=== PATIENT | male | born 1940 | race Caucasian/White ===

== ENCOUNTER → 2016-07-14 | Outpatient (CLI) | payer MEDICARE, OTHER ==
[~2016-07-14] MED LIST: /AMIO20TA; /AUGM25TA; AFRI0.65; AMIO400T; AMOX500C; ASPI1TAB PO; ASPI325T; ASTE0.15; COLA100C2; CORD200T; CYAN1000VL IM; FERR324T5; FERR325T; FURO20TA2; FURO80TA2; Ferrous Gluconate; LEVO112T2 PO; LIPI10TA; LIPI20TA; LISI-542 PO; LISI10TA4; LISI5TAB; LOPR50TA; METH2.5TA PO; OCEAN NASAL SPRAY; OMEP20TA7; PERC7.5T8; PRAV40TA2 PO; PRIL20CA; PRIN10TA; VITA500T3 PO; [UNRECOGNIZED DRUG - CODE]
[2016-07-14 11:46] LABS: ANION GAP 7 MEQ/L (8-16); BLOOD UREA NITROGEN 10 MG/DL (7-18); CARBON DIOXIDE LEVEL 32 MEQ/L (21-32); CHLORIDE LEVEL 105 MEQ/L (98-107); CREATININE FOR GFR 0.77 MG/DL (0.70-1.30); GLOMERULAR FILTRATION RATE > 60.0 (>42); GLUCOSE, FASTING 90 MG/DL (83-110); POTASSIUM SERUM 3.9 MEQ/L (3.5-5.1); SODIUM LEVEL 144 MEQ/L (136-145)
--- NOTE | 2016-07-14 13:26 | ECGEPIP ---
Stationary ECG Study [facility] Test Date: 2016-07-14 Pat Name: RAFIA MARIN Department: Room: - Gender: M Bus Girl: [facility] : 1940 Requested By: MARCIA Rodas Order Number: [id number] Reading MD: Zoey Bradley Measurements Intervals [place] Rate: 93 P: 37 LA: 148 QRS: 58 QRSD: 89 T: 64 QT: 358 QTc: 447 Interpretive Statements SINUS RHYTHM ANTEROSEPTAL MYOCARDIAL INFARCTION, OF INDETERMINATE AGE no prior borderline voltage Electronically Signed On 07-14-2016 13:26:12 EST by Zoey Bradley
== END ==
LOC: M LAB 10:32
PROVIDERS: ATTEND Ophthalmology
DX: Z01.818 Encounter for other preprocedural examination (principal)

== ENCOUNTER → 2016-07-21 | Day surgery (SDC) | payer MEDICARE, OTHER ==
--- NOTE | 2016-07-14 06:06 | CR ---
DATE OF CONSULTATION: 07/12/2016 CONSULTATION REPORT FOR: Dr. Govind Borjas, game operator. I was asked to see Wiley Ahmadi, a 76-year-old white male, in medical consultation for cataract surgery. He does have a history of coronary artery disease with remote myocardial infarction (VT). He underwent coronary artery bypass graft (CABG) in 2008. He has mild systolic dysfunction with an ejection fraction (EF) of about 45-50%. He has had no recent exacerbations of heart failure and has good exercise tolerance without chest pain or shortness of breath. He has been on aspirin for secondary prevention. Dr. Borjas has apparently already dealt with that, I would like him to resume it as soon as possible postoperatively when they feel it is safe. He had recent blood work as he does have frequent blood work as he is on methotrexate for rheumatoid arthritis (RA). Recent CBC, BMP, hepatic were all normal. He is on thyroid replacement. He had a recent TSH which was normal on his current dose. His last electrocardiogram was normal except for a slow R-wave progression. This probably is a result of his previous VT. MEDICATIONS: - B12 injections - Synthroid 112 mcg daily - lisinopril 5 mg a day - methotrexate 2.5 mg six tablets on Saturdays - pravastatin 40 mg a day - B12 PAST MEDICAL HISTORY: 1. Coronary artery disease/CABG as above. 2. Borderline systolic dysfunction as discussed secondary to coronary disease. 3. Hypothyroid. 4. Rheumatoid arthritis. 5. Elevated sugar. 6. Cholelithiasis. 7. Renal cyst. 8. Abnormal chest x-ray with calcification and noncalcified plaques. He has had fairly recent CT. There is no followup criteria. SOCIAL HISTORY: Stopped smoking in 1995. No alcohol. ALLERGIES: No allergies to medications. Cardiopulmonary review of systems is negative as discussed. His only complaint is that of some pain in the right wrist secondary to his RA and this has been a chronic complaint. Most of his other RA complaints abated following institution of methotrexate. PHYSICAL EXAMINATION: Blood pressure is 110/66. GENERAL APPEARANCE: He is slightly ashen in appearance. He had a complete blood count on 05/10/2016, which was normal. EYE EXAM: Per Dr. Borjas. NECK: No carotid bruits. No jugular venous distention (JVD). HEART: Was regular. CHEST: Clear. No rales or wheezes. ABDOMEN: He has got some central obesity. EXTREMITIES: No edema. On exam, I did not appreciate any significant synovitis but he is complaining of some discomfort at his right wrist and there might be some mild fullness in this area. IMPRESSION/PLAN: 1. Ischemic cardiomyopathy, compensated without evidence of heart failure. He does have mild systolic dysfunction. Continue his angiotensin-converting enzyme (BETH) inhibitor postoperatively. He is not on a beta-penelope. 2. Asymptomatic cholelithiasis. 3. History of abnormal chest x-ray as discussed. 4. Rheumatoid arthritis, on methotrexate. 5. Asymptomatic renal cyst. 6. Hypothyroid, on replacement dosage. Resume postoperatively. 7. Aspirin for secondary prevention. Resume postoperatively when stable from a surgical standpoint. The patient is medically optimized with recommendations as above.
[~2016-07-21] VITALS: Ht 177.8 cm; Wt 85.3 kg
[~2016-07-21] MED LIST changes: +ACETYLCHOLINE OPHTH SOLN 1% 2ML XX ONE; +BALANCED SALT IRRIGATION SOLUTION 500ML BAG (FOR OR EYE MACHINE) As Ordered ONE; +CEFUROXIME 1MG/0.1ML INTRACAMERAL INJ ICAM ONE; +D5W/0.2% SODIUM CHLORIDE 1,000 ML IV SCH; +HEALON DUET (HEALON 10MG/ML 0.55ML & HEALON ENDOCOAT 30MG/ML 0.85ML) As Ordered ONE; +HEALON DUET (HEALON 10MG/ML 0.55ML & HEALON ENDOCOAT 30MG/ML 0.85ML) XX ONE; +LIDOCAINE 0.75%/EPINEPHRINE 0.025% IN BSS 1ML SYR INTRACAMERAL (OR ONLY) ICAM ONE; +LIDOCAINE 4% INJ 5 ML AMP XX ONE; +MIDAZOLAM INJ 2 MG/2 ML VIAL (J2250) As Ordered ONE; +OFLOXACIN 0.3 % (OCUFLOX) OPTH SOL 5ML OS ONE; +PHENYLEPHRINE 2.5% OPHTH SOL 2ML OS ONE; +PROPARACAINE 0.5% OPHTH SOL 15ML OS ONE; +TOBRADEX OPHTH OINT 3.5 GM As Ordered ONE; +TOBRADEX OPHTH OINT 3.5 GM XX ONE; +TROPICAMIDE 1% OPHTH SOLN 2 ML OS ONE; +fentaNYL 100 MCG/2 ML INJECTION (J3010) As Ordered ONE
[2016-07-21] MEDS: D5W/0.2% SODIUM CHLORIDE 250 ML IV SCH ×2 (11:57→13:19)
[2016-07-21 14:05] VITALS: BP 131/76
--- NOTE | 2016-07-22 06:37 | RO ---
DATE OF PROCEDURE: 07/21/2016 PREOPERATIVE DIAGNOSIS: Visually significant nuclear sclerotic cataract left eye. POSTOPERATIVE DIAGNOSIS: Visually significant nuclear sclerotic cataract left eye. PROCEDURE: Cataract extraction with use of phacoemulsification and placement of intraocular lens ZCB00, 23 diopter, left eye. SURGEON: Govind Borjas DO CELLOPHANE BATH MIXER: ANESTHESIA: Local with monitored anesthesia care (MAC). COMPLICATIONS: None. POSTOPERATIVE CONDITION: Stable. INDICATION FOR SURGERY: Blurred vision left eye affecting patient's activities of daily living. DESCRIPTION OF PROCEDURE: The patient was seen in the preoperative area and properly identified. The correct operative eye was identified and marked. Attention was turned to that eye. The patient received topical antibiotics in the preoperative area. The patient then received topical dilating drops consisting of tropicamide and phenylephrine. The patient was then transferred to the operating room. The correct side was reidentified. The patient received topical anesthetics and antibiotics on the surface of the eye. The eye was prepped and draped in a sterile fashion. The upper and lower eyelids were isolated with Tegaderm tape, and the lids were held open with an adjustable speculum. Using a sideport blade, a paracentesis incision was made. Intraocular preservative-free lidocaine was then injected into the anterior chamber. Viscoelastic was then injected into the anterior chamber through the paracentesis. Using a 2.65 mm sharp-tipped keratome, the anterior chamber was entered via a temporal clear corneal incision. A continuous curvilinear capsulorrhexis was created with the aid of a 26-gauge cystotome and Utrata forceps. Hydrodissection was performed with balanced salt solution (BSS) on a blunt cannula until the nucleus was freely mobile. The crystalline lens was phacoemulsified and aspirated. Additional cohesive viscoelastic was placed into the capsular bag to deepen it. A ZCB00 lens was placed into the capsular bag and confirmed by visualizing the continuous curvilinear capsulorrhexis. Additional irrigation and aspiration was used to remove cortical material and remaining viscoelastic. The clear corneal incision was hydrated with BSS on a blunt cannula. The lens was well positioned. The incisions were then tested for leaks and found to be negative. The eye was then palpated for appropriate pressure and adjusted accordingly with BSS. Several drops of antibiotics and Iopidine were placed in the eye. The eyelid speculum was then carefully removed. Maxitrol ointment was placed in the eye. An eye patch and shield were then secured over the eye. The patient tolerated the procedure well and was discharged to the recovery unit in a stable condition. ERI
== END | disposition home or self-care (01) ==
LOC: M SDC 10:29
PROVIDERS: ATTEND Ophthalmology
DX: H25.12 Age-related nuclear cataract, left eye (principal); I10 Essential (primary) hypertension; E78.5 Hyperlipidemia, unspecified; E03.9 Hypothyroidism, unspecified; Z79.899 Other long term (current) drug therapy; Z79.82 Long term (current) use of aspirin
CPT/HCPCS: 66984; J2250; J3010; V2632

== ENCOUNTER → 2017-07-11 | Outpatient (CLI) | payer MEDICARE, OTHER | LOC: M RAD 09:48 | DX: Z01.811 Encounter for preprocedural respiratory examination (principal); M65.321 Trigger finger, right index finger | CPT/HCPCS: 71046 ==

== ENCOUNTER → 2019-04-23 | Outpatient (REF) | payer MEDICARE, OTHER ==
[~2019-04-23] MED LIST changes: -/AMIO20TA; -ACETYLCHOLINE OPHTH SOLN 1% 2ML XX ONE; +AMIO1TAB; -ASPI1TAB PO; +ASPI81TA26 PO; -BALANCED SALT IRRIGATION SOLUTION 500ML BAG (FOR OR EYE MACHINE) As Ordered ONE; -CEFUROXIME 1MG/0.1ML INTRACAMERAL INJ ICAM ONE; +CYAN500T8 PO; -D5W/0.2% SODIUM CHLORIDE 1,000 ML IV SCH; -HEALON DUET (HEALON 10MG/ML 0.55ML & HEALON ENDOCOAT 30MG/ML 0.85ML) As Ordered ONE; -HEALON DUET (HEALON 10MG/ML 0.55ML & HEALON ENDOCOAT 30MG/ML 0.85ML) XX ONE; -LIDOCAINE 0.75%/EPINEPHRINE 0.025% IN BSS 1ML SYR INTRACAMERAL (OR ONLY) ICAM ONE; -LIDOCAINE 4% INJ 5 ML AMP XX ONE; +METH2.5T48 PO; -METH2.5TA PO; -MIDAZOLAM INJ 2 MG/2 ML VIAL (J2250) As Ordered ONE; -OFLOXACIN 0.3 % (OCUFLOX) OPTH SOL 5ML OS ONE; -PHENYLEPHRINE 2.5% OPHTH SOL 2ML OS ONE; -PROPARACAINE 0.5% OPHTH SOL 15ML OS ONE; -TOBRADEX OPHTH OINT 3.5 GM As Ordered ONE; -TOBRADEX OPHTH OINT 3.5 GM XX ONE; -TROPICAMIDE 1% OPHTH SOLN 2 ML OS ONE; -VITA500T3 PO; -fentaNYL 100 MCG/2 ML INJECTION (J3010) As Ordered ONE
== END ==
LOC: M LAB REF 16:49
PROVIDERS: ATTEND Internal Medicine
DX: Z79.899 Other long term (current) drug therapy (principal); M06.9 Rheumatoid arthritis, unspecified

== ENCOUNTER → 2019-11-04 | Outpatient (CLI) | payer MEDICARE, OTHER ==
--- NOTE | 2019-11-04 12:35 | REP ---
REASON: Rheumatoid arthritis. PRIORS: None. Degenerative changes are seen throughout the wrist, particularly the 1st and 2nd carpometacarpal joints where there is asymmetric joint space narrowing and subchondral sclerosis seen along with osteophytosis. There is no evidence of acute fracture, dislocation or subluxation. IMPRESSION: Chronic changes as described above. Electronically Signed by Albert Parsons DO 11/04/2019 12:36 P
== END ==
LOC: M WUC 10:58
PROVIDERS: ATTEND Internal Medicine
DX: M06.9 Rheumatoid arthritis, unspecified (principal); M25.531 Pain in right wrist

== ENCOUNTER 2020-06-25 18:36 | Inpatient (IN) | payer MEDICARE, OTHER ==
[~2020-06-25] VITALS: Ht 180.3 cm; Wt 89.1 kg
[~2020-06-25 18:36] MED LIST changes: -ACET-897 PO; -ASPI-161 PO; -FOLI1TAB11 PO; -GNPLIQ18 PO; -SYNT100T PO
--- OUTSIDE RECORDS SUMMARY | 2020-06-25 18:40 | CCD | Continuity of Care Document ---
Author Author Wiley PACHECO PA Organization Unknown Address [phone] [address] Phone [phone] Care Team Providers Care Associate Automation Engineer Name Role Phone Charbel Austin MD AUTM [phone] Govind Borjas DO AUTM [phone] Kwadwo Garay JR, MD AUTM Unavailable Problems Active Problems Provider Date Pain in limb Lukasz Singh D.O. Onset: 2011 Coronary arteriosclerosis Lukasz Singh D.O. Onset: 06/24/2011 Hard prostate Lukasz Singh D.O. Onset: 2011 Anemia Lukasz Singh D.O. Onset: 2011 Essential hypertension Lukasz Singh D.O. Onset: Pure hypercholesterolemia Lukasz Singh D.O. Onset: 06/24/2011 Chronic systolic heart failure Lukasz Singh D.O. On set: 06/24/2011 Social History Type Date Description Comments Sex Unknown ETOH Use Occasionally consumes alcohol be er Tobacco Use Start: Unknown End: Unknown Patient is a former smoker smoked for 50yrs 1 pack a day Allergies, Adverse Reactions, Alerts Active Allergies Reaction Severity Comments Date No Known Drug Allergy 2010 Medications Active Medications SIG Qnty Indications Ordering Provide r Date Levothyroxine Sodium 100mcg Tablet s 1 by mouth every day 90tabs E03.9 Kwadwo Garay MD 11/04/2019 Folic Acid 1mg Tablets Take One Tablet By Mouth Every Day 30tabs Kwadwo Garay MD 04/24/2019 Multi Vitamin Tablets 1 by mouth every day 30tabs Farideh Carranza [facility] 04/03/[address] 1 by mouth every day 30tabs Nurse #2 11/10/2016 Vitamin B12 1000mcg Tablets ER 1 by mouth every day 90tabs Farideh Carranza [facility] 03/25/2016 Methotrexate 2.5mg Tablets take 7 tablets by mouth once a week 84tabs M05.40 Kwadwo Garay MD 12/30 Lisinopril 5mg Tablets Take One Tablet By Mouth Every Day 90tabs Abraham Isidro M.D. 03/31/2014 Pravastatin Sodium 40mg Tablets take one tablet by mouth every day 90tabs Kwadwo Garay MD 06/09/2010 Medications Administered in Office Medication SIG Qnty Indications Ordering Provider Date Immunization Adminstration,1 Vaccine/Tox oid Injection Kwadwo Garay MD 2019 Depo-Medrol Injection Injection Phyl Salazar, [facility] 02/09/2017 Depo-Medrol Injection Injection Phyl Salazar, [facility] 11/10/2016 Depo-Medrol Injection Injection Phyl Marie, [facility] 11/10/2016 B12 1000 mcg [address]-90 Injection Nurse Schedule 03/25/2016 Therapeutic Injection Injection Sage OsmanOTyler 03/25/2016 B12 1000 mcg [address]-45 Injection Nurse Schedule 02/24/2016 Therapeutic Injection Injection Sage OsmanOTyler 02/24/2016 B12 1000 mcg [address]-03 Injection Sage OsmanOTyler 02/05/2016 Therapeutic Injection Injection Sage OsmanOTyler 02/05/2016 B12 1000 mcg [address]-61 Injection Sage OsmanOTyler 12/31/2015 Therapeutic Injection Injection Sage OsmanOTyler 12/31/2015 B12 1000 mcg [address]-93 Injection Nurse Schedule 11/23/2015 Therapeutic Injection Injection Nurse Schedule 11/23/2015 B12 1000 mcg [address]-29 Injection Nurse Schedule 10/21/2015 Therapeutic Injection Injection Sage OsmanOTyler 10/21/2015 B12 1000 mcg [address]-51 Injection Nurse Schedule 10/14/2015 Therapeutic Injection Injection Lukasz Singh D.O. 10/14/2015 B12 1000 mcg [address]-16 Injection Nurse Schedule 10/07/2015 B12 1000 mcg [address]-33 Injection Lukasz Singh D.O. 10/07/2015 Therapeutic Injection Injection Lukasz Singh D.O. 10/07/2015 B12 1000 mcg [address]-40 Injection Nurse Schedule 09/30/2015 Therapeutic Injection Injection Lukasz Singh D.O. 09/30/2015 B12 1000 mcg [address]-84 Injection Nurse Schedule 09/23/2015 Therapeutic Injection Injection Nurse Schedule 09/23/2015 Administration Of Flu Vaccine Inj ection Lukasz Singh D.O. 03/31 Immunizations CPT Code Status Date Vaccine Lot # [id number] Given 11/04/2019 Adacel- Tetanus Diphtheria P ertussis (Age64 & Under) [id number] Given 03/31/2014 Fluvirin Virus Vaccine [id number] Refused 04/03/2018 Influenza Virus Vaccine, Quadrivalent (Cciiv4), Derived From Cell Vital Signs Date Vital Result Comment 05/15/2020 8:04am BP Systolic 120 mmHg BP Diastolic 70 mmHg Height 70 inches 5'10" Weight 206.00 lb BMI (Body Mass Index) 29.6 kg/m2 05/05/2020 9:47am BP Systolic 122 mmHg BP Diastolic 64 mmHg Heart Rate 88 /min Height 70 inches 5'10" Weight 205.00 lb BMI (Body Mass Index) 29.4 kg/m2 Results Test Acquired Date Facility Test Result H/L Range Note Laboratory test finding 05/15/2020 [facility] SEE COMMENTS 1 Enhanced PDF Report [id number] SEE IMAGE Complete Blood Count 05/04/2020 [facility] neeta teran Loan Processing Supervisor: [place] [address] [phone] WBC 4.0 x10*3/UL Low 4.1 - 10.9 RBC 3.88 x10*6/UL Low 4.20 - 6.30 Hemoglobin 12.8 g/dL 12.0 - 18.0 Hematocrit 36.6 % Low 37.0 - 51.0 MCV 94.3 fL 80.0 - 97.0 MCH 33.0 pg High 26.0 - 32.0 MCHC 35.0 g/dL 31.0 - 38.0 RDW 14.4 % High 11.6 - 13.7 PLT 167 x10*3/UL 140 - 440 MPV 8.5 FL 7.8 - 11.0 Lymph % 37.8 % 10.0 - 58.5 Mid % 8.2 % 1.7 - 9.3 Neut % 54.0 % 37.0 - 92.0 Lymph # 1.5 x10*3/UL 0.6 - 4.1 Mid # 0.4 x10*3/UL 0.1 - 0.6 Neut # 2.1 x10*3/UL 2.0 - 7.8 Comprehensive Chem Profile 05/04/2020 [facility], Loan Processing Supervisor: [place] [address] [phone] Glucose 118 mg/dL High 74 - 99 2 BUN 18 mg/dL 7 - 18 Creatinine 0.7 mg/dL 0.6 - 1.3 Sodium 145 mEq/L 136 - 145 Potassium 3.7 mEq/L 3.5 - 5.1 Chloride 106 mEq/L 98 - 107 Carbon Dioxide 32 mEq/L 21 - 32 Calcium 8.7 mg/dL 8.5 - 10.1 Alk. Phosphatase 92 mg/dL 46 - 116 Total Bilirubin 1.2 mg/dL High 0.2 - 1.0 Ast (Sgot) 37 U/L 15 - 37 Alt (SGPT) 42 U/L 12 - 78 Albumin 4.0 g/dL 3.4 - 5.0 Total Protein 6.6 g/dL 6.4 - 8.2 A/G Ratio 1.54 CALC 1.00 - 1.90 GFR >= 60 mL/min >60 GFR >= 60 mL/min >60 3 Lipid Profile 05/04/2020 [facility] , Loan Processing Supervisor: [place] [address] [phone] Cholesterol 157 mg/dL 131 - 200 Triglycerides 142 mg/dL 30 - 150 HDL Cholesterol 46 mg/dL 35 - 60 LDL (Calculated) 83 CALC 50 - 159 Laboratory test finding 05/04/2020 [facility] neeta barry Loan Processing Supervisor: [place] [address] [phone] Thyroid Stimulating Hormone 1.18 uIU/mL 0.3 6 - 3.74 Laboratory test finding 05/04/2020 [facility] neeta barry Loan Processing Supervisor: [place] [address] [phone] Thyroid Stimulating Hormone 1.24 uIU/mL 0.3 6 - 3.74 T4 Free 1.21 ng/dL 0.76 - 1.46 Laboratory test finding 12/16/2019 [facility] neeta barry Loan Processing Supervisor: Dr Kwadwo Garay [place], [place] [id number] [phone] Thyroid Stimulating Hormone 2.23 uIU/mL 0.3 6 - 3.74 1 RESULTS DIAGNOSIS DIAGNOSIS: RT MID BACK 1MM- SEBORRHEIC KERATOSIS, INFLAMED RESULTS SIGNATURE Kenneth Hutchison MD Electronic Signature: 26 MAY 2020 04:47 PM CLINICAL INFORMATION CLINICAL INFORMATION SHAILA KER SPECIMEN DATA GROSS DESCRIPTION Received in 10% buffered formalin is a shave biopsy of skin measuring [id number]. The specimen is cut into 5 pieces and entirely submitted in 2 cassettes. MICROSCOPIC DESCRIPTION There is basket-weave and laminated orthokeratosis, and parakeratosis, overlying an epidermis characterized by papillomatosis, acanthosis, basaloid cells and horn pseudocysts. There is a mononuclear cell infiltrate in the papillary dermis. CPT Codes 93288 The CPT codes provided are for information purposes only, and are based on AMA guidelines without regard to specific payor requirements. END OF REPORT FINAL REPORT-[facility] FINAL [facility],[address] [place] [address],[address],[place] [address]. [phone]. [phone]. Pharmacy Technician Instructor: Abraham Frazier MD [facility] [id number], [place] [id number], [place] [phone] 2 100-125 mg/dL PRE-DIABET ES/FASTING >126 mg/dL DIABETES/FASTING 3 CHRONIC KIDNEY DISEASE STAGI NG PER NKF STAGE I & II GFR >= 60 NORMAL TO MILDLY DECREASED STAGE III GFR 30-59 MODERATELY DECREASED STAGE IV GFR 15-29 SEVERELY DECREASED STAGE V GFR <15 VERY LITTLE GFR LEFT ESRD GFR <15 ON MANAGER COMPLIANCE Procedures Date Code Description Status 05/05/2020 91677 EKG/Interpretation & Report Comp leted Medical Devices Description No Information Available Encounters Type Date Location Provider Dx Diagnosis Office Visit 05/05/2020 10:00a [facility] Kwadwo Garay MD E03.9 Hypothyroidism, unspecified 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 I11.0 Hypertensive heart disease w ith heart failure 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 E78.00 Pure hypercholesterolemia, u nspecified M06.9 Rheumatoid arthritis, unspec ified R73.09 Other abnormal glucose K42.9 Umbilical hernia without obs truction or gangrene R91.8 Other nonspecific abnormal f inding of lung field E66.3 Overweight Z68.29 Body mass index [BMI] 29.0-2 9.9, adult Assessments Date Code Description Provider 05/15/2020 D48.5 Neoplasm of uncertain behavior o f skin ENEIDA Angel JR 05/05/2020 E03.9 Hypothyroidism, unspecified Shaan annia Garay MD 05/05/2020 I25.10 Atherosclerotic hear t disease of [place] coronary artery without angina pectoris Kwadwo Garay MD 05/05/2020 Z95.1 Presence of aortocoronary bypass graft Kwadwo Garay MD 05/05/2020 I11.0 Hypertensive heart disease with heart failure Kwadwo Garay MD 05/05/2020 I50.42 Chronic combined sys tolic (congestive) and diastolic (congestive) heart failure Kwadwo Garay MD 05/05/2020 E78.00 Pure hypercholesterolemia, unspe cified Kwadwo Garay MD 05/05/2020 M06.9 Rheumatoid arthritis, unspecifie d Kwadwo Garay MD 05/05/2020 R73.09 Other abnormal glucose Kwadwo Garay MD 05/05/2020 K42.9 Umbilical hernia without obstruc tion or gangrene Kwadwo Garay MD 05/05/2020 R91.8 Other nonspecific abnormal findi ng of lung field Kwadwo Garay MD 05/05/2020 E66.3 Overweight Kwadwo gutierrez MD 05/05/2020 Z68.29 Body mass index [BMI] 29.0-29.9, adult Kwadwo Garay MD 05/04/2020 E03.9 Hypothyroidism, unspecified Lab Schedule 05/04/2020 E78.00 Pure hypercholesterolemia, unspe cified Kwadwo Garay MD 05/04/2020 E03.9 Hypothyroidism, unspecified Shaan annia Garay MD 05/04/2020 I11.0 Hypertensive heart disease with heart failure Kwadwo Garay MD 05/04/2020 E78.00 Pure hypercholesterolemia, unspe cified Lab Schedule 05/04/2020 I50.42 Chronic combined sys tolic (congestive) and diastolic (congestive) heart failure Kwadwo Garay MD 05/04/2020 I11.0 Hypertensive heart disease with heart failure Lab Schedule 05/04/2020 I50.42 Chronic combined sys tolic (congestive) and diastolic (congestive) heart failure Lab Schedule 12/16/2019 E03.9 Hypothyroidism, unspecified Shaan annia Garay MD 12/16/2019 E03.9 Hypothyroidism, unspecified Lab Schedule Plan of Treatment Future Appointment(s):* 11/06/2020 7:40 am - Lab Schedule at [facility] * 11/09/2020 10:20 am - Kwadwo Garay MD at [facility] 05/05/2020 - Kwadwo Garay MD* E03.9 Hypothyroidism, unspecified * I25.10 Atherosclerotic heart disease of [place] coronary artery without angina pectoris * Z95.1 Presence of aortocoronary bypass graft * I11.0 Hypertensive heart disease with heart failure* Comments:* Compliance with meds and diet. * I50.42 Chronic combined systolic (congestive) and diastolic (congestive) heart failure * E78.00 Pure hypercholesterolemia, unspecified * M06.9 Rheumatoid arthritis, unspecified * R73.09 Other abnormal glucose * K42.9 Umbilical hernia without obstruction or gangrene * R91.8 Other nonspecific abnormal finding of lung field * E66.3 Overweight * Z68.29 Body mass index [BMI] 29.0-29.9, adult Functional Status Description No Information Available Mental Status Description No Information Available Referrals Description No Information Available
--- OUTSIDE RECORDS SUMMARY | 2020-06-25 18:40 | CCD | Continuity of Care Document ---
Author Author Wiley PACHECO PA Organization Unknown Address [address] [address] Phone [phone] Care Team Providers Care Dock Worker Name Role Phone Charbel Austin MD AUTM [phone] Govind Borjas DO AUTM [phone] Kwadwo Garay JR, MD AUTM Unavailable Problems [...] by mouth every day 30tabs Farideh Carranza [facility] 04/03/[address] 1 by mouth every day 30tabs Nurse #2 11/10/2016 Vitamin B12 1000mcg Tablets ER 1 by mouth every day 90tabs Farideh Carranza [facility] 03/25/2016 Methotrexate 2.5mg Tablets take 7 tablets [...] MD 2019 Depo-Medrol Injection Injection Phyl Salazar, [facility] 02/09/2017 Depo-Medrol Injection Injection Phyl Salazar, [facility] 11/10/2016 Depo-Medrol Injection Injection Phyl Marie, [facility] 11/10/2016 B12 1000 mcg [address]-63 Injection Nurse Schedule 03/25/2016 Therapeutic Injection Injection Sage OsmanOTyler 03/25/2016 B12 1000 mcg [address]-51 Injection Nurse Schedule 02/24/2016 Therapeutic Injection Injection Sage OsmanOTyler 02/24/2016 B12 1000 mcg [address]-39 Injection Sage OsmanOTyler 02/05/2016 Therapeutic Injection Injection Sage OsmanOTyler 02/05/2016 B12 1000 mcg [address]-06 Injection Sage OsmanOTyler 12/31/2015 Therapeutic Injection Injection Sage OsmanOTyler 12/31/2015 B12 1000 mcg [address]-50 Injection Nurse Schedule 11/23/2015 Therapeutic Injection Injection Nurse Schedule 11/23/2015 B12 1000 mcg [address]-70 Injection Nurse Schedule 10/21/2015 Therapeutic Injection Injection Sage OsmanOTyler 10/21/2015 B12 1000 mcg [address]-10 Injection Nurse Schedule 10/14/2015 Therapeutic Injection Injection Lukasz Singh D.O. 10/14/2015 B12 1000 mcg [address]-75 Injection Nurse Schedule 10/07/2015 B12 1000 mcg [address]-36 Injection Lukasz Singh D.O. 10/07/2015 Therapeutic Injection Injection Lukasz Singh D.O. 10/07/2015 B12 1000 mcg [address]-83 Injection Nurse Schedule 09/30/2015 Therapeutic Injection Injection Lukasz Singh D.O. 09/30/2015 B12 1000 mcg [address]-08 Injection Nurse Schedule 09/23/2015 Therapeutic Injection Injection Nurse Schedule 09/23/2015 Administration Of Flu Vaccine Inj ection Lukasz Singh D.O. 03/31 Immunizations CPT Code Status Date Vaccine Lot # [id number] Given 11/04/2019 Adacel- Tetanus Diphtheria P ertussis (Age64 & Under) [id number] Given 03/31/2014 Fluvirin Virus Vaccine [id number] Refused 04/03/2018 Influenza Virus Vaccine, Quadrivalent (Cciiv4), [...] Date Facility Test Result H/L Range Note Complete Blood Count 05/04/2020 [facility] Local Sales Associate: [place] [address] [phone] WBC 4.0 x10*3/UL Low 4.1 - 10.9 [...] 2.0 - 7.8 Comprehensive Chem Profile 05/04/2020 [facility] Local Sales Associate: [place] [address] [phone] Glucose 118 mg/dL High 74 - 99 1 BUN 18 mg/dL 7 - 18 Creatinine [...] mL/min >60 GFR >= 60 mL/min >60 2 Lipid Profile 05/04/2020 [facility] Local Sales Associate: [place] [address] [phone] Cholesterol 157 mg/dL 131 - 200 Triglycerides 142 mg/dL 30 - 150 HDL Cholesterol 46 mg/dL 35 - 60 LDL (Calculated) 83 CALC 50 - 159 Laboratory test finding 05/04/2020 [facility] Local Sales Associate: [place] [address] [phone] Thyroid Stimulating Hormone 1.18 uIU/mL 0.3 6 - 3.74 Laboratory test finding 05/04/2020 [facility], Local Sales Associate: [place] [address] [phone] Thyroid Stimulating Hormone 1.24 uIU/mL 0.3 6 - 3.74 T4 Free 1.21 ng/dL 0.76 - 1.46 Laboratory test finding 12/16/2019 [facility] Local Sales Associate: [place] [address] [phone] Thyroid Stimulating Hormone 2.23 uIU/mL 0.3 6 - 3.74 1 100-125 mg/dL PRE-DIABET ES/FASTING >126 mg/dL DIABETES/FASTING 2 CHRONIC KIDNEY DISEASE STAGI NG PER NKF STAGE I & II GFR >= 60 NORMAL TO MILDLY DECREASED STAGE III GFR 30-59 MODERATELY DECREASED STAGE IV GFR 15-29 SEVERELY DECREASED STAGE V GFR <15 VERY LITTLE GFR LEFT ESRD GFR <15 ON MORTGAGE LOAN COMPUTATION CLERK Procedures Date Code Description Status 05/05/2020 19237 EKG/Interpretation & Report Comp leted Medical Devices Description No Information Available Encounters Type Date Location Provider Dx Diagnosis Office Visit 05/05/2020 10:00a [facility] Kwadwo Garay MD E03.9 Hypothyroidism, [...] 9.9, adult Assessments Date Code Description Provider 05/05/2020 E03.9 Hypothyroidism, unspecified Shaan annia Garay MD 05/05/2020 I25.10 Atherosclerotic hear t disease of [place] coronary artery without angina pectoris Kwadwo Garay [...] 11/06/2020 7:40 am - Lab Schedule at [facility] * 11/09/2020 10:20 am - [facility] Functional Status Description No Information Available Mental Status Description No Information Available Referrals Description No Information Available
--- OUTSIDE RECORDS SUMMARY | 2020-06-25 18:40 | CCD | Continuity of Care Document ---
Author Author Wiley Garay MD Organization Unknown Address [address] [address] Phone [phone] Care Team Providers Care Can Cleaner Name Role Phone Charbel Austin MD AUTM [phone] Govind Borjas DO AUTM [phone] Kwadwo Garay JR, MD AUTM Unavailable Problems [...] HEART CENTER 11/10/2016 Depo-Medrol Injection Injection Phyl Salazar, [facility] 11/10/2016 B12 1000 mcg [address]-03 Injection Nurse Schedule 03/25/2016 Therapeutic Injection Injection Sage OsmanOTyler 03/25/2016 B12 1000 mcg [address]-95 Injection Nurse Schedule 02/24/2016 Therapeutic Injection Injection Sage OsmanOTyler 02/24/2016 B12 1000 mcg [address]-68 Injection Sage OsmanOTyler 02/05/2016 Therapeutic Injection Injection Sage OsmanOTyler 02/05/2016 B12 1000 mcg [address]-38 Injection Lukasz Singh D.O. 12/31/2015 Therapeutic Injection Injection Sage OsmanOTyler 12/31/2015 B12 1000 mcg [address]-13 Injection Nurse Schedule 11/23/2015 Therapeutic Injection Injection Nurse Schedule 11/23/2015 B12 1000 mcg [address]-07 Injection Nurse Schedule 10/21/2015 Therapeutic Injection Injection Lukasz Singh D.O. 10/21/2015 B12 1000 mcg [address]-60 Injection Nurse Schedule 10/14/2015 Therapeutic Injection Injection Lukasz Singh D.O. 10/14/2015 B12 1000 mcg [address]-41 Injection Nurse Schedule 10/07/2015 B12 1000 mcg [address]-85 Injection Lukasz Singh D.O. 10/07/2015 Therapeutic Injection Injection Lukasz Singh D.O. 10/07/2015 B12 1000 mcg [address]-69 Injection Nurse Schedule 09/30/2015 Therapeutic Injection Injection Lukasz Singh D.O. 09/30/2015 B12 1000 mcg [address]-87 Injection Nurse Schedule 09/23/2015 Therapeutic Injection Injection Nurse Schedule 09/23/2015 Administration Of Flu Vaccine Inj ection Lukasz Singh D.O. 03/31 Immunizations CPT Code Status Date Vaccine Lot # [id number] Given 11/04/2019 Adacel- Tetanus Diphtheria P ertussis (Age64 & Under) [id number] Given 03/31/2014 Fluvirin Virus Vaccine [id number] Refused 04/03/2018 Influenza Virus Vaccine, Quadrivalent (Cciiv4), Derived From Cell Vital Signs Date Vital Result Comment 05/05/2020 9:47am BP Systolic 122 mmHg BP Diastolic 64 mmHg Heart Rate 88 /min Height 70 inches 5'10" Weight 205.00 lb BMI (Body Mass Index) 29.4 kg/m2 11/04/2019 9:53am BP Systolic 120 mmHg BP Diastolic 60 mmHg Height 70 inches 5'10" Weight 206.25 lb BMI (Body Mass Index) 29.6 kg/m2 Results Test Acquired Date Facility Test Result H/L Range Note Complete Blood Count 05/04/2020 [facility] Senior Database Administrator: [place] [address] [phone] WBC 4.0 x10*3/UL Low 4.1 - 10.9 [...] 2.0 - 7.8 Comprehensive Chem Profile 05/04/2020 [facility] Senior Database Administrator: [place] [address] [phone] Glucose 118 mg/dL High 74 - 99 [...] 60 mL/min >60 2 Lipid Profile 05/04/2020 [facility] Senior Database Administrator: [place] [address] [phone] Cholesterol 157 mg/dL 131 - 200 Triglycerides 142 mg/dL 30 - 150 HDL Cholesterol 46 mg/dL 35 - 60 LDL (Calculated) 83 CALC 50 - 159 Laboratory test finding 05/04/2020 [facility] Senior Database Administrator: [place] [address] [phone] Thyroid Stimulating Hormone 1.18 uIU/mL 0.3 6 - 3.74 Laboratory test finding 05/04/[address] [facility] Senior Database Administrator: [place] [address] [phone] Thyroid Stimulating Hormone 1.24 uIU/mL 0.3 6 - 3.74 T4 Free 1.21 ng/dL 0.76 - 1.46 Laboratory test finding 12/16/[address] [facility] Senior Database Administrator: [place] [address] [phone] Thyroid Stimulating Hormone 2.23 uIU/mL 0.3 6 - 3.74 1 100-125 mg/dL PRE-DIABET ES/FASTING >126 mg/dL DIABETES/FASTING 2 CHRONIC KIDNEY DISEASE STAGI NG PER NKF STAGE I & II GFR >= 60 NORMAL TO MILDLY DECREASED STAGE III GFR 30-59 MODERATELY DECREASED STAGE IV GFR 15-29 SEVERELY DECREASED STAGE V GFR <15 VERY LITTLE GFR LEFT ESRD GFR <15 ON REMOTE SENSING TECHNOLOGIST Procedures Date Code Description Status 05/05/2020 60544 EKG/Interpretation & Report Comp leted Medical Devices Description No Information Available Encounters Type Date Location Provider Dx Diagnosis Office Visit 05/05/2020 10:00a [facility] Kwadwo Garya MD E03.9 Hypothyroidism, unspecified I25.10 Athscl heart [...] 05/05/2020 I25.10 Atherosclerotic hear t disease of [place] coronary artery without angina pectoris Kwadwo Garay [...] Lab Schedule Plan of Treatment Future Appointment(s):* 05/15/2020 8:00 am - ENEIDA Angel JR at [facility] * 11/06/2020 7:40 am - Lab Schedule at [facility] * 11/09/2020 10:20 am - Kwadwo Garay MD at [facility] 05/05/2020 - Kwadwo Garay MD* E03.9 Hypothyroidism, unspecified * I25.10 Atherosclerotic heart disease of [place] coronary artery without angina pectoris * Z95.1 [...]
--- OUTSIDE RECORDS SUMMARY | 2020-06-25 18:41 | CCD ---
Author Author [facility] Organization [facility] Address Unknown Phone Unavailable Care Team Providers Care Roller Staker Name Role Phone Alexis Garay MD Unavailable Unavailable Alexis Garay MD Unavailable Unavailable Alexis Garay MD Unavailable Unavailable Alexis Garay MD Unavailable Unavailable Alexis Garay MD Unavailable Unavailable Alexis Garay MD Unavailable Unavailable Alexis Garay MD Unavailable Unavailable Alexis Garay MD Unavailable Unavailable Alexis Garay MD Unavailable Unavailable Alexis Garay MD Unavailable Unavailable Alexis Garay MD Unavailable Unavailable Alexis Garay MD Unavailable Unavailable Alexis Garay MD Unavailable Unavailable Alexis Garay MD Unavailable Unavailable Alexis Garay MD Unavailable Unavailable Alexis Garay MD Unavailable Unavailable Alexis Garay MD Unavailable Unavailable Alexis Garay MD Unavailable Unavailable Alexis Garay MD Unavailable Unavailable Alexis Garay MD Unavailable Unavailable Alexis Garay MD Unavailable Unavailable Alexis Garay MD Unavailable Unavailable Alexis Garay MD Unavailable Unavailable Alexis Garay MD Unavailable Unavailable Alexis Garay MD Unavailable Unavailable Alexis Garay MD Unavailable Unavailable Alexis Garay MD Unavailable Unavailable Alexis Garay MD Unavailable Unavailable Alexis Garay MD Unavailable Unavailable Alexis Garay MD Unavailable Unavailable Alexis Garay MD Unavailable Unavailable Alexis Garay MD Unavailable Unavailable Alexis Garay MD Unavailable Unavailable Alexis Garay MD Unavailable Unavailable Alexis Garay MD Unavailable Unavailable Alexis Garay MD Unavailable Unavailable Alexis Garay MD Unavailable Unavailable Alexis Garay MD Unavailable Unavailable Alexis Garay MD Unavailable Unavailable Alexis Garay MD Unavailable Unavailable Tanisha, Alexis Burkett MD Unavailable Unavailable [place], Alexis Burkett MD Unavailable Unavailable [place], Alexis Burkett MD Unavailable Unavailable Tanisha, Alexis uBrkett MD Unavailable Unavailable Tanisha, Alexis Burkett MD Unavailable Unavailable Tanisha, Alexis Burkett MD Unavailable Unavailable TanishaAlexis MD Unavailable Unavailable [place] MD Unavailable Unavailable [place], Alexis Burkett MD Unavailable Unavailable Tanisha, Alexis Burkett MD Unavailable Unavailable Tanisha, Alexis Burkett MD Unavailable Unavailable Tanisha, Alexis Burkett MD Unavailable Unavailable [place], Alexis Burkett MD Unavailable Unavailable [place], Alexis Burkett MD Unavailable Unavailable [place], Alexis Burkett MD Unavailable Unavailable Tanisha, Alexis Burkett MD Unavailable Unavailable Tanisha, Alexis Burkett MD Unavailable Unavailable [place], Alexis Burkett MD Unavailable Unavailable Tanisha, Alexis Burkett MD Unavailable Unavailable [place], Alexis Burkett MD Unavailable Unavailable [place]is MD Unavailable Unavailable [place]Alexis MD Unavailable Unavailable Tanisha, Alexis Burkett MD Unavailable Unavailable [place] MD Unavailable Unavailable [place] MD Unavailable Unavailable [place]Alexis MD Unavailable Unavailable [place]Alexis MD Unavailable Unavailable [place]Alexis MD Unavailable Unavailable [place]Alexis MD Unavailable Unavailable [place], Alexis Burkett MD Unavailable Unavailable [place], Alexis Burkett MD Unavailable Unavailable [place], Alexis Burkett MD Unavailable Unavailable Tanisha, Alexis Burkett MD Unavailable Unavailable [place], Alexis Burkett MD Unavailable Unavailable [place], Alexis Burkett MD Unavailable Unavailable [place] MD Unavailable Unavailable Tanisha, Alexis Burkett MD Unavailable Unavailable TanishaAlexis MD Unavailable Unavailable TanishaAlexis MD Unavailable Unavailable TanishaAlexis MD Unavailable Unavailable TanishaAlexis MD Unavailable Unavailable [place] MD Unavailable Unavailable TanishaAlexis MD Unavailable Unavailable TanishaAlexis MD Unavailable Unavailable [place] MD Unavailable Unavailable [place] MD Unavailable Unavailable Re-disclosure Warning The records that you are about to access may contain information from federally-assisted alcohol or drug abuse programs. If such information is present, then the following federally mandated warning applies: This information has been disclosed to you from records protected by federal confidentiality rules (42 CFR part 2). The federal rules prohibit you from making any further disclosure of this information unless further disclosure is expressly permitted by the written consent of the person to whom it pertains or as otherwise permitted by 42 CFR part 2. A general authorization for the release of medical or other information is NOT sufficient for this purpose. The Federal rules restrict any use of the information to criminally investigate or prosecute any alcohol or drug abuse patient.The records that you are about to access may contain highly sensitive health information, the redisclosure of which is protected by Article 27-F of the [facility] Public Health law. If you continue you may have access to information: Regarding HIV / AIDS; Provided by facilities licensed or operated by the [facility] Office of Mental Health; or Provided by the [facility] Office for People With Developmental Disabilities. If such information is present, then the following [facility] mandated warning applies: This information has been disclosed to you from confidential records which are protected by state law. State law prohibits you from making any further disclosure of this information without the specific written consent of the person to whom it pertains, or as otherwise permitted by law. Any unauthorized further disclosure in violation of state law may result in a fine or senior care sentence or both. A general authorization for the release of medical or other information is NOT sufficient authorization for further disc losure. Family History Family Member Name Family Member Gender Family Member Status Date o f Status Description Data Source(s) Unknown Male Problem [facility] ([facility]) Encounters Encounter Providers Location Date Indications Data Source(s ) Outpatient Attender: Kwadwo Bradley 1 2019 09:00:00 AM EST [facility] ([facility] ) Outpatient Attender: Kwadwo Bradley 0 11/04/2019 10:20:00 AM EDT [facility] ([facility] ) Immunizations Vaccine Date Status Description Data Source(s) Tdap 11/04/2019 11:20:00 AM EDT completed M [facility] ([facility]) Medications Medication Brand Name Start Date Product Form Dose Route Admi nistrative Instructions Pharmacy Instructions Status Indications Reaction Description Data Source(s) 1 mg 04/22/2020 12:00:00 AM EST tablet 30 TAKE ONE TABLET BY MOUTH EVERY DAY TAKE ONE TABLET BY MOUTH EVERY DAY SOLD: 04/23/2020 [facility] 1 mg 04/22/2020 12:00:00 AM EST tablet 30 TAKE ONE TABLET BY MOUTH EVERY DAY TAKE ONE TABLET BY MOUTH EVERY DAY SOLD: 06/23/2020 [facility] 1 mg 04/22/2020 12:00:00 AM EST tablet 30 TAKE ONE TABLET BY MOUTH EVERY DAY TAKE ONE TABLET BY MOUTH EVERY DAY SOLD: 05/27/2020 [facility] 5 mg 03/19/2020 12:00:00 AM EDT tablet 90 TAKE ONE TABLET BY MOUTH EVERY DAY TAKE ONE TABLET BY MOUTH EVERY DAY SOLD: 06/23/2020 [facility] 5 mg 03/19/2020 12:00:00 AM EDT tablet 90 TAKE ONE TABLET BY MOUTH EVERY DAY TAKE ONE TABLET BY MOUTH EVERY DAY SOLD: 03/25/2020 [facility] 100 mcg 11/04/2019 12:00:00 AM EDT tablet 90 TAKE ONE TABLET BY MOUTH EVERY DAY TAKE ONE TABLET BY MOUTH EVERY DAY SOLD: 05/03/2020 [facility] 100 mcg 11/04/2019 12:00:00 AM EDT tablet 90 TAKE ONE TABLET BY MOUTH EVERY DAY TAKE ONE TABLET BY MOUTH EVERY DAY SOLD: 02/05/2020 [facility] 100 mcg 11/04/2019 12:00:00 AM EDT tablet 90 TAKE ONE TABLET BY MOUTH EVERY DAY TAKE ONE TABLET BY MOUTH EVERY DAY SOLD: 11/06/2019 [facility] Levothyroxine Sodium 0.1 MG Oral Tablet Levothyroxine Sodium 11/04/2019 12:00:00 AM EDT ORAL active [facility] ([facility]) Immunization Adminstration,1 Vaccine/Toxoid 11/04/2019 12:00 :00 AM EDT completed [facility] ([facility]) Medication administered onsite 2.5 mg 08/27/2019 12:00:00 AM EDT tablet 84 TAKE 7 TABLETS BY MOUTH ONCE A WEEK TAKE 7 TABLETS BY MOUTH ONCE A WEEK SOLD: 11/23/2019 [facility] 2.5 mg 08/27/2019 12:00:00 AM EDT tablet 84 TAKE 7 TABLETS BY MOUTH ONCE A WEEK TAKE 7 TABLETS BY MOUTH ONCE A WEEK SOLD: 08/29/2019 [facility] 2.5 mg 08/27/2019 12:00:00 AM EDT tablet 84 TAKE 7 TABLETS BY MOUTH ONCE A WEEK TAKE 7 TABLETS BY MOUTH ONCE A WEEK SOLD: 05/14/2020 [facility] 2.5 mg 08/27/2019 12:00:00 AM EDT tablet 84 TAKE 7 TABLETS BY MOUTH ONCE A WEEK TAKE 7 TABLETS BY MOUTH ONCE A WEEK SOLD: 02/17/2020 [facility] 40 mg 07/16/2019 12:00:00 AM EST tablet 90 TAKE ONE TABLET BY MOUTH EVERY DAY TAKE ONE TABLET BY MOUTH EVERY DAY SOLD: 01/18/2020 [facility] 40 mg 07/16/2019 12:00:00 AM EST tablet 90 TAKE ONE TABLET BY MOUTH EVERY DAY TAKE ONE TABLET BY MOUTH EVERY DAY SOLD: 04/23/2020 [facility] Pravastatin Sodium 40 MG Oral Tablet PRAVASTATIN SODIUM 04/2020 12:00:00 AM EST tablet 90 TAKE ONE TABLET BY MOUTH SWAPNA DAY TAKE ONE TABLET BY MOUTH EVERY DAY SOLD: 07/16/2019 [facility] 40 mg 07/16/2019 12:00:00 AM EST tablet 90 TAKE ONE TABLET BY MOUTH EVERY DAY TAKE ONE TABLET BY MOUTH EVERY DAY SOLD: 10/17/2019 [facility] 112 mcg 06/11/2019 12:00:00 AM EST tablet 90 TAKE ONE TABLET BY MOUTH EVERY DAY TAKE ONE TABLET BY MOUTH EVERY DAY SOLD: 09/16/2019 [facility] 112 mcg 06/11/2019 12:00:00 AM EST tablet 90 TAKE ONE TABLET BY MOUTH EVERY DAY TAKE ONE TABLET BY MOUTH EVERY DAY SOLD: 06/19/2019 [facility] 2.5 mg 06/07/2019 12:00:00 AM EST tablet 84 TAKE 7 TABLETS BY MOUTH ONCE A WEEK TAKE 7 TABLETS BY MOUTH ONCE A WEEK SOLD: 06/11/2019 [facility] 1 mg 04/24/2019 12:00:00 AM EST tablet 30 TAKE ONE TABLET BY MOUTH EVERY DAY TAKE ONE TABLET BY MOUTH EVERY DAY SOLD: 07/25/2019 [facility] 1 mg 04/24/2019 12:00:00 AM EST tablet 30 TAKE ONE TABLET BY MOUTH EVERY DAY TAKE ONE TABLET BY MOUTH EVERY DAY SOLD: 03/25/2020 [facility] 1 mg 04/24/2019 12:00:00 AM EST tablet 30 TAKE ONE TABLET BY MOUTH EVERY DAY TAKE ONE TABLET BY MOUTH EVERY DAY SOLD: 11/23/2019 [facility] 1 mg 04/24/2019 12:00:00 AM EST tablet 30 TAKE ONE TABLET BY MOUTH EVERY DAY TAKE ONE TABLET BY MOUTH EVERY DAY SOLD: 04/25/2019 [facility] 1 mg 04/24/2019 12:00:00 AM EST tablet 30 TAKE ONE TABLET BY MOUTH EVERY DAY TAKE ONE TABLET BY MOUTH EVERY DAY SOLD: 12/23/2019 [facility] 1 mg 04/24/2019 12:00:00 AM EST tablet 30 TAKE ONE TABLET BY MOUTH EVERY DAY TAKE ONE TABLET BY MOUTH EVERY DAY SOLD: 02/22/2020 [facility] 1 mg 04/24/2019 12:00:00 AM EST tablet 30 TAKE ONE TABLET BY MOUTH EVERY DAY TAKE ONE TABLET BY MOUTH EVERY DAY SOLD: 01/22/2020 [facility] 1 mg 04/24/2019 12:00:00 AM EST tablet 30 TAKE ONE TABLET BY MOUTH EVERY DAY TAKE ONE TABLET BY MOUTH EVERY DAY SOLD: 10/24/2019 [facility] 1 mg 04/24/2019 12:00:00 AM EST tablet 30 TAKE ONE TABLET BY MOUTH EVERY DAY TAKE ONE TABLET BY MOUTH EVERY DAY SOLD: 06/26/2019 [facility] 1 mg 04/24/2019 12:00:00 AM EST tablet 30 TAKE ONE TABLET BY MOUTH EVERY DAY TAKE ONE TABLET BY MOUTH EVERY DAY SOLD: 05/26/2019 [facility] 1 mg 04/24/2019 12:00:00 AM EST tablet 30 TAKE ONE TABLET BY MOUTH EVERY DAY TAKE ONE TABLET BY MOUTH EVERY DAY SOLD: 08/24/2019 [facility] 1 mg 04/24/2019 12:00:00 AM EST tablet 30 TAKE ONE TABLET BY MOUTH EVERY DAY TAKE ONE TABLET BY MOUTH EVERY DAY SOLD: 09/24/2019 [facility] 5 mg 03/27/2019 12:00:00 AM EDT tablet 90 TAKE ONE TABLET BY MOUTH EVERY DAY TAKE ONE TABLET BY MOUTH EVERY DAY SOLD: 12/23/2019 [facility] 5 mg 03/27/2019 12:00:00 AM EDT tablet 90 TAKE ONE TABLET BY MOUTH EVERY DAY TAKE ONE TABLET BY MOUTH EVERY DAY SOLD: 09/24/2019 [facility] 5 mg 03/27/2019 12:00:00 AM EDT tablet 90 TAKE ONE TABLET BY MOUTH EVERY DAY TAKE ONE TABLET BY MOUTH EVERY DAY SOLD: 06/29/2019 [facility] Insurance Providers Payer name Policy type / Coverage type Policy ID Covered green party ID Covered green party's relationship to fowler Policy [place] Plan Information [facility] [id number] SP [id number] MEDICARE [id number] SP [id number] SELF PAY ONLY [id number] SP [id number] [employer] Workers Compensation [id number] Self [id number] [place] (Old) Medigap Part B [id number] Self [id number] Medicare Natl Govt Serv Medicare Primary [id number] Self [id number] Umr (New [place]) Medigap Part B [id number] Self [id number] [employer] Workers Compensation [id number] Self [id number] [place] (Old) Medigap Part B [id number] Self [id number] Medicare Natl Govt Servic Medicare Primary [id number] Self [id number] [place] (pr) Medigap Part B [id number] Self [id number] Umr (pr) Medigap Part B [id number] Self [id number] Medicare [place] Primary [id number] Self [id number] [employer] Workers Compensation [id number] Self [id number] [place] (Old) Medigap Part B [id number] Self [id number] Medicare Natl Govt Servic Medicare Primary [id number] Self [id number] [employer] Workers Compensation [id number] Self [id number] [place] (Old) Medigap Part B [id number] Self [id number] Medicare Natl Govt Servic Medicare Primary [id number] Self [id number] UMR O [id number] S [id number] [place] PPO O [id number] S [id number] MEDICARE C [id number] S [id number] A [employer] Workers Compensation [id number] Self [id number] [place] (Old) Medigap Part B [id number] Self [id number] Medicare Natl Govt Servic Medicare Primary [id number] Self [id number] [employer] Workers Compensation [id number] Self [id number] Umr [place] Ppo Medigap Part B [id number] Self [id number] Medicare Natl Govt Servic Medicare Primary [id number] Self [id number] [employer] Workers Compensation [id number] Self [id number] Umr [place] Ppo Medigap Part B [id number] Self [id number] Medicare Natl Govt Servic Medicare Primary [id number] Self [id number] [place] (pr) Medigap Part B [id number] Self [id number] [place] Primary [id number] Self [id number] [place] (pr) Medigap Part B [id number] Self [id number] [place] Primary [id number] Self [id number] [place] [id number] SP [id number] MEDICARE [id number] SP [id number] A [employer] Workers Compensation [id number] Self [id number] Umr [place] Ppo Medigap Part B [id number] Self [id number] Medicare Natl Govt Servic Medicare Primary [id number] Self [id number] [employer] Workers Compensation [id number] Self [id number] Umr [place] Ppo Medigap Part B [id number] Self [id number] Medicare Natl Govt Servic Medicare Primary [id number] Self [id number] [place] (pr) Commercial [id number] Self [id number] [place] (pr) Commercial [id number] Self [id number] [place] (pr) Commercial [id number] Self [id number] [employer] Workers Compensation [id number] Self [id number] Umr [place] Ppo Medigap Part B [id number] Self [id number] Medicare Natl Govt Servic Medicare Primary [id number] Self [id number] [employer] Workers Compensation [id number] Self [id number] [place] Ppo Medigap Part B [id number] Self [id number] Medicare Natl Govt Servic Medicare Primary [id number] Self [id number] [employer] Workers Compensation [id number] Self [id number] [place] Ppo Medigap Part B [id number] Self [id number] Medicare Natl Govt Servic Medicare Primary [id number] Self [id number] [employer] Workers Compensation [id number] Self [id number] [place] Ppo Medigap Part B [id number] Self [id number] Medicare Natl Govt Servic Medicare Primary [id number] Self [id number] [employer] Workers Compensation Self [place] Ppo Medigap Part B [id number] Self [id number] Medicare Natl Govt Servic Medicare Primary Self [employer] PPO O [id number] S [id number] [employer] Workers Compensation Self [employer] Workers Compensation Self [place] [id number] SP [id number] [employer] Workers Compensation Self [employer] Workers Compensation Self [employer] Workers Compensation Self [employer] Workers Compensation Self [employer] Workers Compensation Self MEDICARE UNAVAILABLE SP UNAVAILA BLE [employer] Workers Compensation Self N[employer] [id number] SP [id number] [employer] Workers Compensation Self [employer] Workers Compensation Self [employer] Workers Compensation Self [employer] Workers Compensation Self [employer] Workers Compensation Self Surgeries/Procedures Procedure Description Date Indications Data Source(s) ECG ROUTINE ECG W/LEAST 12 LDS W/I&R 05/05/2020 12:00: 00 AM EST [facility] ([facility]) Results ID Date Data Source [id number] 05/15/2020 09:10:00 AM EST [facility] ([facility]) Name Value Range Interpretation Code Description Data Nehal rce(s) Supporting Document(s) [facility] Laboratory test result [facility] ([facility]) RESULTS DIAGNOSIS DIAGNOSIS: RT MID BACK 1MM- SEBORRHEIC KERATOSIS, INFLAMED RESULTS SIGNATURE Kenneth Hutchison MD Electronic Signature: 26 MAY 2020 04:47 PM CLINICAL INFORMATION CLINICAL INFORMATION SHAILA KER SPECIMEN DATA GROSS DESCRIPTION Received in 10% buffered formalin is a shave biopsy of skin measuring [id number]. The specimen is cut into 5 pieces and entirely submitted in 2 cassettes. MICROSCOPIC DESCRIPTION There is basket-weave and laminated orthokeratosis, and parakeratosis, overlying an epidermis characterized by papillomatosis, acanthosis, basaloid cells and horn pseudocysts. There is a mononuclear cell infiltrate in the papillary dermis. CPT Codes 12668 The CPT codes provided are for information purposes only, and are based on AMA guidelines without regard to specific payor requirements. END OF REPORT FINAL REPORT-[facility] FINAL eriPath [facility],[address] [place] [address],[address] [place] [address]. [phone]. [phone]. Workers Compensation Claims Adjuster: Abraham Frazier MD [facility] [id number], [place] [id number], [place] [id number] Laboratory test finding (navigational concept) Laboratory test result [facility] ([facility]) ID Date Data Source [id number] 05/04/2020 09:14:00 AM EST [facility] ([facility]) Name Value Range Interpretation Code Description Data Nehal rce(s) Supporting Document(s) Thyrotropin [Units/volume] in Serum or Plasma by Detec tion limit <= 0.05 mIU/L 1.24 uIU/mL 0.36-3.74 [facility] ([facility] ) Thyroxine (T4) free [Mass/volume] in Serum or Plasma 1.21 ng/dL 0.76- 1.46 [facility] ([facility]) ID Date Data Source [id number] 05/04/2020 09:14:00 AM EST [facility] ([facility]) Name Value Range Interpretation Code Description Data Nehal rce(s) Supporting Document(s) Thyrotropin [Units/volume] in Serum or Plasma by Detec tion limit <= 0.05 mIU/L 1.18 uIU/mL 0.36-3.74 [facility] ([facility] ) ID Date Data Source [id number] 05/04/2020 09:14:00 AM EST [facility] ([facility]) Name Value Range Interpretation Code Description Data Nehal rce(s) Supporting Document(s) Cholesterol [Mass/volume] in Serum or Plasma 157 mg/dL 131-200 [facility] ([facility]) Cholesterol in HDL [Mass/volume] in Serum or Plasma 46 mg/dL 35-60 [facility] ([facility]) Triglyceride [Mass/volume] in Serum or Plasma 142 mg/dL 30-150 [facility] ([facility]) Cholesterol in LDL [Mass/volume] in Serum or Plasma by calcu lation 83 CALC 50-159 [facility] ([facility]) ID Date Data Source [id number] 05/04/2020 09:14:00 AM EST [facility] ([facility]) Name Value Range Interpretation Code Description Data Nehal rce(s) Supporting Document(s) Glucose [Mass/volume] in Serum or Plasma 118 mg/dL 74-99 [facility] ([facility]) 100-125 mg/dL PRE-DIABETES/FASTING >126 mg/dL DIABETES/FASTING Urea nitrogen [Mass/volume] in Serum or Plasma 18 mg/dL 7-18 [facility] ([facility]) Creatinine 0.7 mg/dL 0.6-1.3 [facility] Potassium [Moles/volume] in Serum or Plasma 3.7 meq/L 3.5-5.1 [facility] ([facility]) Chloride [Moles/volume] in Serum or Plasma 106 meq/L 98-107 [facility] ([facility]) Sodium [Moles/volume] in Serum or Plasma 145 meq/L 136-145 [facility] ([facility]) Alkaline phosphatase isoenzyme [Units/volume] in Serum or Pl asma 92 mg/dL 46-116 [facility] ([facility]) Carbon dioxide, total [Moles/volume] in Serum or Plasma 32 meq/L 21 -32 [facility] ([facility]) Calcium [Mass/volume] in Serum or Plasma 8.7 mg/dL 8.5-10.1 [facility] ([facility]) Total Bilirubin 1.2 mg/dL 0.2-1.0 [facility] ([facility]) Albumin [Mass/volume] in Serum or Plasma 4.0 g/dL 3.4-5.0 [facility] ([facility]) Aspartate aminotransferase [Enzymatic activity/volume] in Serum or Plasma 37 U/L 15-37 [facility] ([facility] ) Alanine aminotransferase [Enzymatic activity/volume] in Seru m or Plasma 42 U/L 12-78 [facility] ([facility]) Glomerular filtration rate/1.73 sq M pre dicted among non-blacks [Volume Rate/Area] in Serum or Plasma by Creatinine-based formula (MDRD) [facility] A/G Ratio 1.54 CALC 1.00-1.90 [facility] Proteinase 3 Ab [Units/volume] in Serum 6.6 g/dL 6.4-8.2 [facility] Glomerular filtration rate/1.73 sq M pre dicted among blacks [Volume Rate/Area] in Serum or Plasma by Creatinine-based formula (MDRD) Laboratory [facility] <content>CHRONIC KIDNEY DISEASE STAGING PER NKF</content>
<content></content>
<content>STAGE I & II GFR >= 60 NORMAL TO MILDLY DECREASED</content>
<content>STAGE III GFR 30-59 MODERATELY DECREASED</content>
<content>STAGE IV GFR 15-29 SEVERELY DECREASED</content>
<content>STAGE V GFR <15 VERY LITTLE GFR LEFT</content>
<content>ESRD GFR <15 ON POLLUTION CONTROL CHEMIST</content>
<content></content> ID Date Data Source [id number] 05/04/2020 09:14:00 AM EST [facility] ([facility]) Name Value Range Interpretation Code Description Data Nehal rce(s) Supporting Document(s) Leukocytes [#/volume] in Blood by Automated count 4.0 x10*3/UL 4.1-10 .9 [facility] ([facility]) Hemoglobin [Mass/volume] in Blood 12.8 g/dL 12.0-18.0 [facility] ([facility]) Erythrocytes [#/volume] in Blood by Automated count 3.88 x10*6/UL 4.2 0-6.30 [facility] ([facility]) Hematocrit [Volume Fraction] of Blood by Automated count 36.6 % 3 7.0-51.0 [facility] ([facility]) MCV 94.3 fL 80.0-97.0 [facility] MCH 33.0 pg 26.0-32.0 [facility] MCHC 35.0 g/dL 31.0-38.0 [facility] Erythrocyte distribution width [Ratio] by Automated count 14.4 % 11.6-13.7 [facility] ([facility]) Platelets [#/volume] in Blood by Automated count 167 x10*3/UL 140-440 [facility] ([facility]) MPV 8.5 FL 7.8-11.0 [facility] Lymph % 37.8 % 10.0-58.5 [facility] Mid % 8.2 % 1.7-9.3 [facility] Neut % 54.0 % 37.0-92.0 [facility] Lymph # 1.5 x10*3/UL 0.6-4.1 [facility] ([facility]) Mid # 0.4 x10*3/UL 0.1-0.6 [facility] ([facility]) Neut # 2.1 x10*3/UL 2.0-7.8 [facility] ([facility]) ID Date Data Source [id number] 12/16/2019 08:52:00 AM EDT [facility] ([facility]) Name Value Range Interpretation Code Description Data Nehal rce(s) Supporting Document(s) Thyrotropin [Units/volume] in Serum or Plasma by Detec tion limit <= 0.05 mIU/L 2.23 uIU/mL 0.36-3.74 [facility] ([facility] ) ID Date Data Source [id number] 11/01/2019 07:41:00 AM EDT [facility] ([facility]) Name Value Range Interpretation Code Description Data Nehal rce(s) Supporting Document(s) Thyrotropin [Units/volume] in Serum or Plasma by Detec tion limit <= 0.05 mIU/L 0.33 uIU/mL 0.36-3.74 [facility] ([facility] ) ID Date Data Source [id number] 11/01/2019 07:41:00 AM EDT [facility] ([facility]) Name Value Range Interpretation Code Description Data Nehal rce(s) Supporting Document(s) Triglyceride [Mass/volume] in Serum or Plasma 150 mg/dL 30-150 [facility] ([facility]) Cholesterol in LDL [Mass/volume] in Serum or Plasma by calcu lation 81 CALC 50-159 [facility] ([facility]) Cholesterol in HDL [Mass/volume] in Serum or Plasma 44 mg/dL 35-60 [facility] ([facility]) Cholesterol [Mass/volume] in Serum or Plasma 155 mg/dL 131-200 [facility] ([facility]) ID Date Data Source [id number] 11/01/2019 07:41:00 AM EDT [facility] ([facility]) Name Value Range Interpretation Code Description Data Nehal rce(s) Supporting Document(s) Urea nitrogen [Mass/volume] in Serum or Plasma 14 mg/dL 7-18 [facility] ([facility]) Creatinine 0.9 mg/dL 0.6-1.3 [facility] Glucose [Mass/volume] in Serum or Plasma 124 mg/dL 74-99 [facility] ([facility]) 100-125 mg/dL PRE-DIABETES/FASTING >126 mg/dL DIABETES/FASTING Sodium [Moles/volume] in Serum or Plasma 143 meq/L 136-145 [facility] ([facility]) Potassium [Moles/volume] in Serum or Plasma 3.9 meq/L 3.5-5.1 [facility] ([facility]) Chloride [Moles/volume] in Serum or Plasma 107 meq/L 98-107 [facility] ([facility]) Carbon dioxide, total [Moles/volume] in Serum or Plasma 29 meq/L 21 -32 [facility] ([facility]) Total Bilirubin 1.3 mg/dL 0.2-1.0 [facility] ([facility]) Calcium [Mass/volume] in Serum or Plasma 8.7 mg/dL 8.5-10.1 [facility] ([facility]) Alkaline phosphatase isoenzyme [Units/volume] in Serum or Pl asma 99 mg/dL 46-116 [facility] ([facility]) Aspartate aminotransferase [Enzymatic activity/volume] in Serum or Plasma 30 U/L 15-37 [facility] ([facility] ) Albumin [Mass/volume] in Serum or Plasma 3.8 g/dL 3.4-5.0 [facility] Alanine aminotransferase [Enzymatic activity/volume] in Seru m or Plasma 32 U/L 12-78 [facility] ([facility]) Proteinase 3 Ab [Units/volume] in Serum 6.2 g/dL 6.4-8.2 [facility] ([facility]) Glomerular filtration rate/1.73 sq M pre dicted among non-blacks [Volume Rate/Area] in Serum or Plasma by Creatinine-based formula (MDRD) Laboratory test result [facility] Glomerular filtration rate/1.73 sq M pre dicted among blacks [Volume Rate/Area] in Serum or Plasma by Creatinine-based formula (MDRD) Laboratory test result [facility] <content>CHRONIC KIDNEY DISEASE STAGING PER NKF</content>
<content></content>
<content>STAGE I & II GFR >= 60 NORMAL TO MILDLY DECREASED</content>
<content>STAGE III GFR 30-59 MODERATELY DECREASED</content>
<content>STAGE IV GFR 15-29 SEVERELY DECREASED</content>
<content>STAGE V GFR <15 VERY LITTLE GFR LEFT</content>
<content>ESRD GFR <15 ON POLLUTION CONTROL CHEMIST</content>
<content></content> A/G Ratio 1.58 CALC 1.00-1.90 [facility] ID Date Data Source [id number] 11/01/2019 07:41:00 AM EDT [facility]) Name Value Range Interpretation Code Description Data Nehal rce(s) Supporting Document(s) Hemoglobin A1c/Hemoglobin.total in Blood 5.5 g/dL 4.8-5.6 [facility] Lab Result Notes: Pre-Diabetes 5.7 - 6.4 % Diabetes = or > 6.5% Glucose mean value [Mass/volume] in Blood Estimated fr om glycated hemoglobin 111 mg/dL 60-110 [facility] ID Date Data Source [id number] 11/01/2019 07:41:00 AM EDT [facility] Name Value Range Interpretation Code Description Data Nehal rce(s) Supporting Document(s) Leukocytes [#/volume] in Blood by Automated count 3.9 x10*3/UL 4.1-10 .9 [facility] ([facility]) Hemoglobin [Mass/volume] in Blood 12.3 g/dL 12.0-18.0 [facility] Erythrocytes [#/volume] in Blood by Automated count 3.77 x10*6/UL 4.2 0-6.30 [facility] NOTE: RESULT VERIFIED. MCV 94.7 fL 80.0-97.0 [facility] ([facility]) Hematocrit [Volume Fraction] of Blood by Automated count 35.7 % 3 7.0-51.0 [facility] MCHC 34.6 g/dL 31.0-38.0 [facility] MCH 32.8 pg 26.0-32.0 [facility] Erythrocyte distribution width [Ratio] by Automated count 14.4 % 11.6-13.7 [facility] ([facility]) MPV 8.2 FL 7.8-11.0 [facility] ([facility]) Platelets [#/volume] in Blood by Automated count 179 x10*3/UL 140-440 [facility] ([facility]) Lymph # 0.9 x10*3/UL 0.6-4.1 [facility] ([facility]) Mid % 8.7 % 1.7-9.3 [facility] Neut % 67.5 % 37.0-92.0 [facility] Lymph % 23.8 % 10.0-58.5 [facility] Neut # 2.6 x10*3/UL 2.0-7.8 [facility] ([facility]) Mid # 0.4 x10*3/UL 0.1-0.6 [facility] ([facility]) ID Date Data Source [id number] 11/01/2019 07:41:00 AM EDT [facility]) Name Value Range Interpretation Code Description Data Nehal rce(s) Supporting Document(s) Hemoglobin A1c/Hemoglobin.total in Blood Laboratory test result [facility] Procedure Vital Signs ID Date Data Source UNK Name Value Range Interpretation Code Description Data Source(s) Body mass index (BMI) [Ratio] 29.6 kg/m2 29.6 k g/m2 [facility] ([facility]) Body weight 206.00 [lb_av] 206.00 [lb_av] [facility] ([facility]) Body height 70 [in_i] 70 [in_i] [facility] ([facility]) 5'10" Diastolic blood pressure 70 mm[Hg] 70 mm[Hg] [facility] ([facility]) Systolic blood pressure 120 mm[Hg] 120 mm[Hg] [facility] ([facility]) Body mass index (BMI) [Ratio] 29.4 kg/m2 29.4 k g/m2 [facility] ([facility]) Body weight 205.00 [lb_av] 205.00 [facility]_av] [facility] Body height 70 [in_i] 70 [in_i] [facility] ([facility]) 5'10" Heart rate 88 /min 88 /min [facility] ([facility]) Diastolic blood pressure 64 mm[Hg] 64 mm[Hg] [facility] ([facility]) Systolic blood pressure 122 mm[Hg] 122 mm[Hg] [facility] ([facility]) Body mass index (BMI) [Ratio] 29.6 kg/m2 29.6 k g/m2 [facility] ([facility]) Body weight 206.25 [lb_av] 206.25 [lb_av] [facility] Body height 70 [in_i] 70 [in_i] [facility] ([facility]) 5'10" Diastolic blood pressure 60 mm[Hg] 60 mm[Hg] [facility] ([facility]) Systolic blood pressure 120 mm[Hg] 120 mm[Hg] [facility] ([facility])
--- OUTSIDE RECORDS SUMMARY | 2020-06-25 18:41 | CCD | Continuity of Care Document ---
Author Author Lab Schedule, [facility] Organization Unknown Address [address] [address] Phone Unavailable Care Team Providers Care Certified Juvenile Probation Officer Name Role Phone Charbel Austin MD [facility] [phone] Govind Borjas DO [facility] [phone] Kwadwo Garay JR, MD [employer] Unavailable Problems Active Problems Provider Date Pain [...] by mouth every day 30tabs Farideh Carranza [facility] 04/03/[address] 1 by mouth every day 30tabs Nurse #2 11/10/2016 Vitamin B12 1000mcg Tablets ER 1 by mouth every day 90tabs Farideh Mendozaes, [facility] 03/25/2016 Methotrexate 2.5mg Tablets take 7 [...] MD 2019 Depo-Medrol Injection Injection Phyl Salazar, [facility] 02/09/2017 Depo-Medrol Injection Injection [facility], [facility] 11/10/2016 Depo-Medrol Injection Injection [facility], [facility] 11/10/2016 B12 1000 mcg [address]-96 Injection Nurse Schedule 03/25/2016 Therapeutic Injection Injection Sage OsmanOTyler 03/25/2016 B12 1000 mcg [address]-94 Injection Nurse Schedule 02/24/2016 Therapeutic Injection Injection Sage OsmanOTyler 02/24/2016 B12 1000 mcg [address]-16 Injection Sage OsmanOTyler 02/05/2016 Therapeutic Injection Injection Sage OsmanOTyler 02/05/2016 B12 1000 mcg [address]-39 Injection Lukasz Singh D.O. 12/31/2015 Therapeutic Injection Injection Lukasz Singh D.O. 12/31/2015 B12 1000 mcg [address]-63 Injection Nurse Schedule 11/23/2015 Therapeutic Injection Injection Nurse Schedule 11/23/2015 B12 1000 mcg [address]-41 Injection Nurse Schedule 10/21/2015 Therapeutic Injection Injection Sage OsmanOTyler 10/21/2015 B12 1000 mcg [address]-83 Injection Nurse Schedule 10/14/2015 Therapeutic Injection Injection Lukasz Sinhg D.O. 10/14/2015 B12 1000 mcg [address]-41 Injection Nurse Schedule 10/07/2015 B12 1000 mcg [address]-82 Injection Lukasz Singh D.O. 10/07/2015 Therapeutic Injection Injection Lukasz Singh D.O. 10/07/2015 B12 1000 mcg [address]-59 Injection Nurse Schedule 09/30/2015 Therapeutic Injection Injection Lukasz Singh D.O. 09/30/2015 B12 1000 mcg [address]-61 Injection Nurse Schedule 09/23/2015 Therapeutic Injection Injection Nurse Schedule 09/23/2015 Administration Of Flu Vaccine Inj ection Lukasz Singh D.O. 03/31 Immunizations CPT Code Status Date Vaccine Lot # [id number] Given 11/04/2019 Adacel- Tetanus Diphtheria P ertussis (Age64 & Under) [id number] Given 03/31/2014 Fluvirin Virus Vaccine [id number] Refused 04/03/2018 Influenza Virus Vaccine, Quadrivalent ([id number]), Derived From Cell Vital Signs Date Vital Result Comment 11/04/2019 9:53am BP Systolic 120 mmHg BP Diastolic 60 mmHg Height 70 inches 5'10" Weight 206.25 lb BMI (Body Mass Index) 29.6 kg/m2 04/24/2019 10:38am BP Systolic 124 mmHg BP Diastolic 78 mmHg Heart Rate 84 /min Weight 204.00 lb Results Test Acquired Date Facility Test Result H/L Range Note Laboratory test finding 12/16/2019 [facility] Distribution Sales Manager: [place] [address] [phone] Thyroid Stimulating Hormone 2.23 uIU/mL 0.3 6 - 3.74 Procedures Description No Information Available Medical Devices Description No Information Available Encounters Type Date Location Provider Dx Diagnosis Office Visit 11/04/2019 10:[facility]a [facility] S60.811A Abrasion of right wrist, initial encount er S60.812A Abrasion of left wrist, init ial encounter W54.8xxA Other contact with dog, init ial encounter W18.31xA Fall on same level due to st epping on an object, init encntr 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 E03.9 Hypothyroidism, unspecified I11.0 Hypertensive heart disease w ith heart failure 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 E78.00 Pure hypercholesterolemia, u nspecified M06.9 Rheumatoid arthritis, unspec ified R91.8 Other nonspecific abnormal f inding of lung field Assessments Date Code Description Provider 12/16/2019 E03.9 Hypothyroidism, unspecified Shaan ins Ginette Garay MD 12/16/2019 E03.9 Hypothyroidism, unspecified Lab Schedule 11/04/2019 S60.811A Abrasion of right wrist, initial encounter Kwadwo Garay MD 11/04/2019 S60.812A Abrasion of left wrist, initial encounter Kwadwo Garay MD 11/04/2019 W54.8xxA Other contact with dog, initial encounter Kwadwo Garay MD 11/04/2019 W18.31xA Fall on same level d ue to stepping on an object, initial encounter Kwadwo Garay MD 11/04/2019 I25.10 Atherosclerotic hear t disease of [place] coronary artery without angina pectoris Kwadwo Garay MD 11/04/2019 Z95.1 Presence of aortocoronary bypass graft Kwadwo Garay MD 11/04/2019 E03.9 Hypothyroidism, unspecified Shaan ins Ginette Garay MD 11/04/2019 I11.0 Hypertensive heart disease with heart failure Kwadwo Garay MD 11/04/2019 I50.42 Chronic combined sys tolic (congestive) and diastolic (congestive) heart failure Kwadwo Garay MD 11/04/2019 E78.00 Pure hypercholesterolemia, unspe cified Kwadwo Garay MD 11/04/2019 M06.9 Rheumatoid arthritis, unspecifie d Kwadwo Garay MD 11/04/2019 R91.8 Other nonspecific abnormal findi ng of lung field Kwadwo Garay MD Plan of Treatment Future Appointment(s):* 05/05/2020 10:00 am - Kwadwo Garay MD at [facility], [facility] 11/04/2019 - Kwadwo Garay MD* S60.811A Abrasion of right wrist, initial encounter * S60.812A Abrasion of left wrist, initial encounter * W54.8xxA Other contact with dog, initial encounter * W18.31xA Fall on same level due to stepping on an object, initial encounter * I25.10 Atherosclerotic heart disease of [place] coronary artery without angina pectoris * Z95.1 Presence of aortocoronary bypass graft * E03.9 Hypothyroidism, unspecified* New Medication:* Levothyroxine Sodium 100 mcg - 1 by mouth every day * I11.0 Hypertensive heart disease with heart failure* Comments:* Compliance with meds and diet. * I50.42 Chronic combined systolic (congestive) and diastolic (congestive) heart failure * E78.00 Pure hypercholesterolemia, unspecified * M06.9 Rheumatoid arthritis, unspecified * R91.8 Other nonspecific abnormal finding of lung field Functional Status Description No Information Available Mental Status Description No Information Available Referrals Description No Information Available
[2020-06-25] MEDS ORDERED: ACETAMINOPHEN 650 MG SUPP PR ONE (19:00)
[2020-06-25] MEDS ORDERED: ACETAMINOPHEN TAB 650MG DOSE (2X325MG) PO ONE (19:00)
[2020-06-25] MEDS ORDERED: LIDOCAINE 2% 5ML JELLY UROJET TOP ONE (19:00)
[2020-06-25 19:16] LABS: BASO % 0.3 % (0.0-1.0); HEMATOCRIT 38.8 % (42.0-52.0); HEMOGLOBIN 12.7 g/dl (13.5-17.5); LYMPH # 0.4 10^3/uL (1.5-5.0); LYMPH % 9.7 % (24.0-44.0); MEAN CORPUSCULAR HEMOGLOBIN 32.2 pg (27.0-33.0); MEAN CORPUSCULAR HGB CONC 32.7 g/dl (32.0-36.5); MEAN CORPUSCULAR VOLUME 98.5 fl (80.0-96.0); MONO # 0.4 10^3/uL (0.0-0.8); MONO % 11.3 % (0.0-5.0); NEUTROPHILS # 2.9 10^3/uL (1.5-8.5); NEUTROPHILS % 77.9 % (36.0-66.0); RED BLOOD COUNT 3.94 10^6/uL (4.30-6.10); WHITE BLOOD COUNT 3.7 10^3/uL (4.0-10.0)
[2020-06-25 19:21] LABS: ABG BASE EXCESS -2.4 (-2.0-2.0); ABG HCO3 18.8 MEQ/L (22.0-26.0); ABG O2 SATURATION 92.7 % (95.0-99.0); ABG PARTIAL PRESSURE CO2 23.6 mmHg (35.0-45.0); ABG PARTIAL PRESSURE O2 59.1 mmHg (75.0-100.0); ABG STANDARD HCO3 22.3 MEQ/L (22.0-26.0); ABG TOTAL CO2 19.5 MEQ/L (23.0-31.0); ABG pH (ARTERIAL) 7.518 UNITS (7.350-7.450)
[2020-06-25 19:25] LABS: PLATELET COUNT, AUTOMATED 87 10^3/uL (150-450)
[2020-06-25 19:30] LABS: INR 1.24; PROTHROMBIN TIME 15.9 SECONDS (12.5-14.3)
[2020-06-25] MEDS ORDERED: NS 1,000 ML IV ONE (19:30)
[2020-06-25 19:31] LABS: PARTIAL THROMBOPLASTIN TIME 38.8 SECONDS (24.2-38.5)
--- NOTE | 2020-06-25 19:41 | REP ---
INDICATION: Coronavirus workup. COMPARISON: Comparison chest x-ray July 11, 2017. TECHNIQUE: Portable upright AP chest radiograph. FINDINGS: There are extensive ill-defined bilateral perihilar infiltrates in the upper and lower lung hall consistent with viral pneumonia. Heart size is borderline unchanged. Prior sternotomy wires are noted. Monitoring electrodes are seen. No significant bony abnormality is seen.. IMPRESSION: Extensive bilateral ill-defined alveolar infiltrates consistent with viral pneumonia. <Electronically signed by Francisco Roberts > 06/25/20 [id number]
[2020-06-25 19:57] LABS: RSV AMPLIFICATION NEGATIVE (NEGATIVE)
--- OUTSIDE RECORDS SUMMARY | 2020-06-25 19:59 | CCD ---
Author Author [facility] Organization [facility] Address Unknown Phone Unavailable Care Team Providers Care Dye Worker Name Role Phone Alexis Garay MD Unavailable [...] Unavailable Tanisha, Alexis Burkett MD Unavailable Unavailable Killdeer, Alexis Burkett MD Unavailable Unavailable Killdeer, Alexis Burkett MD Unavailable Unavailable Tanisha, Alexis Burkett MD Unavailable Unavailable Tanisha, Alexis Burkett MD Unavailable Unavailable Tanisha, Alexis Burkett MD Unavailable Unavailable TanishaAlexis MD Unavailable Unavailable KilldeerAlexis MD Unavailable Unavailable Killdeer, Alexis Burkett MD Unavailable Unavailable Tanisha, Alexis Burkett MD Unavailable Unavailable Tanisha, Alexis Burkett MD Unavailable Unavailable Tanisha, Alexis Burkett MD Unavailable Unavailable Killdeer, Alexis Burkett MD Unavailable Unavailable Killdeer, Alexis Burkett MD Unavailable Unavailable Killdeer, Alexis Burkett MD Unavailable Unavailable Tanisha, Alexis Burkett MD Unavailable Unavailable Tanisha, Alexis Burkett MD Unavailable Unavailable Killdeer, Alexis Burkett MD Unavailable Unavailable Tanisha, Alexis Burkett MD Unavailable Unavailable Killdeer, Alexis Burkett MD Unavailable Unavailable KilldeerAlexis MD Unavailable Unavailable KilldeerAlexis MD Unavailable Unavailable Tanisha, Alexis Burkett MD Unavailable Unavailable KilldeerAlexis MD Unavailable Unavailable KilldeerAlexis MD Unavailable Unavailable KilldeerAlexis MD Unavailable Unavailable KilldeerAlexis MD Unavailable Unavailable KilldeerAlexis MD Unavailable Unavailable KilldeerAlexis MD Unavailable Unavailable Killdeer, Alexis Burkett MD Unavailable Unavailable Killdeer, Alexis Burkett MD Unavailable Unavailable Killdeer, Alexis Burkett MD Unavailable Unavailable Tanisha, Alexis Burkett MD Unavailable Unavailable Killdeer, Alexis Burkett MD Unavailable Unavailable Killdeer, Alexis Burkett MD Unavailable Unavailable KilldeerAlexis MD Unavailable Unavailable Tanisha, Alexis Burkett MD Unavailable Unavailable TanishaAlexis MD Unavailable Unavailable TanishaAlexis MD Unavailable Unavailable TanishaAlexis MD Unavailable Unavailable TanishaAlexis MD Unavailable Unavailable KilldeerAlexis MD Unavailable Unavailable TanishaAlexis MD Unavailable Unavailable TanishaAlexis MD Unavailable Unavailable KilldeerAlexis MD Unavailable Unavailable KilldeerAlexis MD Unavailable Unavailable Re-disclosure Warning The records [...] is protected by Article 27-F of the [facility] Public Health law. If you continue you may have access to information: Regarding HIV / AIDS; Provided by facilities licensed or operated by the [facility] Office of Mental Health; or Provided by the [facility] Office for People With Developmental Disabilities. If such information is present, then the following [facility] mandated warning applies: This information has been [...] law may result in a fine or retirement sentence or both. A general authorization for the release of medical or other information is NOT sufficient authorization for further disc losure. Family History Family Member Name Family Member Gender Family Member Status Date o f Status Description Data Source(s) Unknown Male Problem [facility] ([facility]) Encounters Encounter Providers Location Date Indications Data Source(s ) Outpatient Attender: Kwadwo Bradley 1 2019 09:00:00 AM EST [facility] ([facility] ) Outpatient Attender: Kwadwo Bradley 0 11/04/2019 10:20:00 AM EDT [facility] ([facility] ) Immunizations Vaccine Date Status Description Data Source(s) Tdap 11/04/2019 11:20:00 AM EDT completed M [facility]ENT ([facility]) Medications Medication Brand Name Start Date [...] 11/04/2019 12:00:00 AM EDT ORAL active [facility] ([facility]) Immunization Adminstration,1 Vaccine/Toxoid 11/04/2019 12:00 :00 AM EDT completed [facility] ([facility]) Medication administered onsite 2.5 mg 08/27/2019 [...] TABLET BY MOUTH EVERY DAY SOLD: 04/25/2019 [facility] 1 mg 04/24/2019 12:00:00 AM EST [...] type / Coverage type Policy ID Covered democrat ID Covered democrat's relationship to fowler Policy Fowler Plan Information [facility] [id number] SP [id number] MEDICARE [id number] SP [id number] SELF PAY ONLY [id number] SP [id number] [employer] Workers Compensation [id number] Self [id number] [place] (Old) Medigap Part B [id number] Self [id number] Medicare Natl Govt Serv Medicare Primary [id number] Self [id number] Umr (New [place]) Medigap Part B [id number] Self [id number] [employer] Workers Compensation [id number] Self [id number] [place] (Old) Medigap Part B [id number] Self [id number] Medicare Natl Govt Servic Medicare Primary [id number] Self [id number] [place] (pr) Medigap Part B [id number] Self [id number] Umr (pr) Medigap Part B [id number] Self [id number] Medicare [place] Medicare Primary [id number] Self [id number] [employer] Workers Compensation [id number] Self [id number] [place] (Old) Medigap Part B [id number] Self [id number] Medicare Natl Govt Servic Medicare Primary [id number] Self [id number] [employer] Workers Compensation [id number] Self [id number] [place] (Old) Medigap Part B [id number] Self [id number] Medicare Natl Govt Servic Medicare Primary [id number] Self [id number] UMR O [id number] S [id number] [place] PPO O [id number] S [id number] MEDICARE C [id number] S [id number] A [employer] Workers Compensation [id number] Self [id number] [place] (Old) Medigap Part B [id number] Self [id number] Medicare Natl Govt Servic Medicare Primary [id number] Self [id number] [employer] Workers Compensation [id number] Self [id number] Umr [place] Ppo Medigap Part B [id number] Self [id number] Medicare Natl Govt Servic Medicare Primary [id number] Self [id number] [employer] Workers Compensation [id number] Self [id number] Umr [place] Ppo Medigap Part B [id number] Self [id number] Medicare Natl Govt Servic Medicare Primary [id number] Self [id number] [place] (pr) Medigap Part B [id number] Self [id number] Medicare [place] Primary [id number] Self [id number] [place] (pr) Medigap Part B [id number] Self [id number] Medicare [place] Medicare Primary [id number] Self [id number] [place] [id number] SP [id number] MEDICARE [id number] SP [id number] A [employer] Workers Compensation [id number] Self [id number] Umr [place] Ppo Medigap Part B [id number] Self [id number] Medicare Natl Govt Servic Medicare Primary [id number] Self [id number] [employer] Workers Compensation [id number] Self [id number] Umr [place] Ppo Medigap Part B [id number] Self [id number] Medicare Natl Govt Servic Medicare Primary [id number] Self [id number] [place] (pr) Commercial [id number] Self [id number] [place] (pr) Commercial [id number] Self [id number] [place] (pr) Commercial [id number] Self [id number] [employer] Workers Compensation [id number] Self [id number] Umr [place] Ppo Medigap Part B [id number] Self [id number] Medicare Natl Govt Servic Medicare Primary [id number] Self [id number] [employer] Workers Compensation [id number] Self [id number] [place] Ppo Medigap Part B [id number] Self [id number] Medicare Natl Govt Servic Medicare Primary [id number] Self [id number] [employer] Workers Compensation [id number] Self [id number] [place] Ppo Medigap Part B [id number] Self [id number] Medicare Natl Govt Servic Medicare Primary [id number] Self [id number] [employer] Workers Compensation [id number] Self [id number] [place] Ppo Medigap Part B [id number] Self [id number] Medicare Natl Govt Servic Medicare Primary [id number] Self [id number] [employer] Workers Compensation Self [place] Ppo Medigap Part B [id number] Self [id number] Medicare Natl Govt Servic Medicare Primary Self [place]OM[place] PPO O [id number] S [id number] [employer] Workers Compensation Self [employer] Workers Compensation Self POMCO [id number] SP [id number] [employer] Workers Compensation Self [employer] Workers Compensation Self [employer] Workers Compensation Self [employer] Workers Compensation Self [employer] Workers Compensation Self MEDICARE UNAVAILABLE SP UNAVAILA BLE [employer] Workers Compensation Self NGM INSURANCE CO [id number] SP [id number] [employer] Workers Compensation Self [employer] Workers Compensation Self [employer] Workers Compensation Self [employer] Workers Compensation Self [employer] Workers Compensation Self Surgeries/Procedures Procedure Description Date Indications Data Source(s) ECG ROUTINE ECG W/LEAST 12 LDS W/I&R 05/05/2020 12:00: 00 AM EST [facility] ([facility]) Results ID Date Data Source [id number] 05/15/2020 09:10:00 AM EST [facility] ([facility]) Name Value Range Interpretation Code Description Data Nehal rce(s) Supporting Document(s) [facility] Laboratory test result [facility] ([facility]) RESULTS DIAGNOSIS DIAGNOSIS: RT MID BACK 1MM- SEBORRHEIC KERATOSIS, INFLAMED RESULTS SIGNATURE Kenneth Hutchison MD Electronic Signature: 26 MAY 2020 04:47 PM CLINICAL INFORMATION CLINICAL INFORMATION SHAILA KER SPECIMEN DATA GROSS DESCRIPTION Received in 10% buffered formalin is a shave biopsy of skin measuring [id number]. The specimen is cut into 5 pieces and entirely submitted in 2 cassettes. MICROSCOPIC DESCRIPTION There is basket-weave and laminated orthokeratosis, and parakeratosis, overlying an epidermis characterized by papillomatosis, acanthosis, basaloid cells and horn pseudocysts. There is a mononuclear cell infiltrate in the papillary dermis. CPT Codes 31787 The CPT codes provided are for information purposes only, and are based on AMA guidelines without regard to specific payor requirements. END OF REPORT FINAL REPORT-[facility] FINAL [facility],[address] [place] [address],[address] [place] [address]. [phone]. [phone]. Landing Worker: Abraham Frazier MD [facility] [id number], [place] [id number], [place] [id number] Laboratory test finding (navigational concept) Laboratory test result [facility] ([facility]) ID Date Data Source [id number] 05/04/2020 09:14:00 AM EST [facility] ([facility]) Name Value Range Interpretation Code Description Data Nehal rce(s) Supporting Document(s) Thyrotropin [Units/volume] in Serum or Plasma by Detec tion limit <= 0.05 mIU/L 1.24 uIU/mL 0.36-3.74 [facility] ([facility] ) Thyroxine (T4) free [Mass/volume] in Serum or Plasma 1.21 ng/dL 0.76- 1.46 [facility] ([facility]) ID Date Data Source [id number] 05/04/2020 09:14:00 AM EST [facility] ([facility]) Name Value Range Interpretation Code Description Data Nehal rce(s) Supporting Document(s) Thyrotropin [Units/volume] in Serum or Plasma by Detec tion limit <= 0.05 mIU/L 1.18 uIU/mL 0.36-3.74 [facility] ([facility] ) ID Date Data Source [id number] 05/04/2020 09:14:00 AM EST [facility] ([facility]) Name Value Range Interpretation Code Description Data Nehal rce(s) Supporting Document(s) Cholesterol [Mass/volume] in Serum or Plasma 157 mg/dL 131-200 [facility] ([facility]) Cholesterol in HDL [Mass/volume] in Serum or Plasma 46 mg/dL 35-60 [facility] ([facility]) Triglyceride [Mass/volume] in Serum or Plasma 142 mg/dL 30-150 [facility] ([facility]) Cholesterol in LDL [Mass/volume] in Serum or Plasma by calcu lation 83 CALC 50-159 [facility] ([facility]) ID Date Data Source [id number] 05/04/2020 09:14:00 AM EST [facility] ([facility]) Name Value Range Interpretation Code Description Data Nehal rce(s) Supporting Document(s) Glucose [Mass/volume] in Serum or Plasma 118 mg/dL 74-99 [facility] ([facility]) 100-125 mg/dL PRE-DIABETES/FASTING >126 mg/dL DIABETES/FASTING Urea nitrogen [Mass/volume] in Serum or Plasma 18 mg/dL 7-18 [facility] ([facility]) Creatinine 0.7 mg/dL 0.6-1.3 [facility] Potassium [Moles/volume] in Serum or Plasma 3.7 meq/L 3.5-5.1 [facility] ([facility]) Chloride [Moles/volume] in Serum or Plasma 106 meq/L 98-107 [facility] ([facility]) Sodium [Moles/volume] in Serum or Plasma 145 meq/L 136-145 [facility] ([facility]) Alkaline phosphatase isoenzyme [Units/volume] in Serum or Pl asma 92 mg/dL 46-116 [facility] ([facility]) Carbon dioxide, total [Moles/volume] in Serum or Plasma 32 meq/L 21 -32 [facility] ([facility]) Calcium [Mass/volume] in Serum or Plasma 8.7 mg/dL 8.5-10.1 [facility] ([facility]) Total Bilirubin 1.2 mg/dL 0.2-1.0 [facility] ([facility]) Albumin [Mass/volume] in Serum or Plasma 4.0 g/dL 3.4-5.0 [facility] ([facility]) Aspartate aminotransferase [Enzymatic activity/volume] in Serum or Plasma 37 U/L 15-37 [facility] ([facility] ) Alanine aminotransferase [Enzymatic activity/volume] in Seru m or Plasma 42 U/L 12-78 [facility] ([facility]) Glomerular filtration rate/1.73 sq M pre dicted among non-blacks [Volume Rate/Area] in Serum or Plasma by Creatinine-based formula (MDRD) Laboratory [facility] A/G Ratio 1.54 CALC 1.00-1.90 [facility]) Proteinase 3 Ab [Units/volume] in Serum 6.6 g/dL 6.4-8.2 [facility] Glomerular filtration rate/1.73 sq M pre dicted among blacks [Volume Rate/Area] in Serum or Plasma by Creatinine-based formula (MDRD) Laboratory test result [facility] <content>CHRONIC KIDNEY DISEASE STAGING PER NKF</content>
<content></content>
<content>STAGE I & II GFR >= 60 NORMAL TO MILDLY DECREASED</content>
<content>STAGE III GFR 30-59 MODERATELY DECREASED</content>
<content>STAGE IV GFR 15-29 SEVERELY DECREASED</content>
<content>STAGE V GFR <15 VERY LITTLE GFR LEFT</content>
<content>ESRD GFR <15 ON SNOW REMOVAL SUPERVISOR</content>
<content></content> ID Date Data Source [id number] 05/04/2020 09:14:00 AM EST [facility] ([facility]) Name Value Range Interpretation Code Description Data Nehal rce(s) Supporting Document(s) Leukocytes [#/volume] in Blood by Automated count 4.0 x10*3/UL 4.1-10 .9 [facility] ([facility]) Hemoglobin [Mass/volume] in Blood 12.8 g/dL 12.0-18.0 [facility] ([facility]) Erythrocytes [#/volume] in Blood by Automated count 3.88 x10*6/UL 4.2 0-6.30 [facility] ([facility]) Hematocrit [Volume Fraction] of Blood by Automated count 36.6 % 3 7.0-51.0 [facility] ([facility]) MCV 94.3 fL 80.0-97.0 [facility] MCH 33.0 pg 26.0-32.0 [facility] MCHC 35.0 g/dL 31.0-38.0 [facility] Erythrocyte distribution width [Ratio] by Automated count 14.4 % 11.6-13.7 [facility] ([facility]) Platelets [#/volume] in Blood by Automated count 167 x10*3/UL 140-440 [facility] ([facility]) MPV 8.5 FL 7.8-11.0 [facility] Lymph % 37.8 % 10.0-58.5 [facility]) Mid % 8.2 % 1.7-9.3 [facility]) Neut % 54.0 % 37.0-92.0 [facility] Lymph # 1.5 x10*3/UL 0.6-4.1 [facility] ([facility]) Mid # 0.4 x10*3/UL 0.1-0.6 [facility] ([facility]) Neut # 2.1 x10*3/UL 2.0-7.8 [facility] ([facility]) ID Date Data Source [id number] 12/16/2019 08:52:00 AM EDT [facility] ([facility]) Name Value Range Interpretation Code Description Data Nehla rce(s) Supporting Document(s) Thyrotropin [Units/volume] in Serum or Plasma by Detec tion limit <= 0.05 mIU/L 2.23 uIU/mL 0.36-3.74 [facility] ([facility] ) ID Date Data Source [id number] 11/01/2019 07:41:00 AM EDT [facility] ([facility]) Name Value Range Interpretation Code Description Data Nehal rce(s) Supporting Document(s) Thyrotropin [Units/volume] in Serum or Plasma by Detec tion limit <= 0.05 mIU/L 0.33 uIU/mL 0.36-3.74 [facility] ([facility] ) ID Date Data Source [id number] 11/01/2019 07:41:00 AM EDT [facility] ([facility]) Name Value Range Interpretation Code Description Data Nehal rce(s) Supporting Document(s) Triglyceride [Mass/volume] in Serum or Plasma 150 mg/dL 30-150 [facility] ([facility]) Cholesterol in LDL [Mass/volume] in Serum or Plasma by calcu lation 81 CALC 50-159 [facility] ([facility]) Cholesterol in HDL [Mass/volume] in Serum or Plasma 44 mg/dL 35-60 [facility] ([facility]) Cholesterol [Mass/volume] in Serum or Plasma 155 mg/dL 131-200 [facility] ([facility]) ID Date Data Source [id number] 11/01/2019 07:41:00 AM EDT [facility] ([facility]) Name Value Range Interpretation Code Description Data Nehal rce(s) Supporting Document(s) Urea nitrogen [Mass/volume] in Serum or Plasma 14 mg/dL 7-18 [facility] ([facility]) Creatinine 0.9 mg/dL 0.6-1.3 [facility] Glucose [Mass/volume] in Serum or Plasma 124 mg/dL 74-99 [facility] ([facility]) 100-125 mg/dL PRE-DIABETES/FASTING >126 mg/dL DIABETES/FASTING Sodium [Moles/volume] in Serum or Plasma 143 meq/L 136-145 [facility] ([facility]) Potassium [Moles/volume] in Serum or Plasma 3.9 meq/L 3.5-5.1 [facility] ([facility]) Chloride [Moles/volume] in Serum or Plasma 107 meq/L 98-107 [facility] ([facility]) Carbon dioxide, total [Moles/volume] in Serum or Plasma 29 meq/L 21 -32 [facility] ([facility]) Total Bilirubin 1.3 mg/dL 0.2-1.0 [facility] ([facility]) Calcium [Mass/volume] in Serum or Plasma 8.7 mg/dL 8.5-10.1 [facility] ([facility]) Alkaline phosphatase isoenzyme [Units/volume] in Serum or Pl asma 99 mg/dL 46-116 [facility] ([facility]) Aspartate aminotransferase [Enzymatic activity/volume] in Serum or Plasma 30 U/L 15-37 [facility] ([facility] ) Albumin [Mass/volume] in Serum or Plasma 3.8 g/dL 3.4-5.0 [facility] Alanine aminotransferase [Enzymatic activity/volume] in Seru m or Plasma 32 U/L 12-78 [facility] ([facility]) Proteinase 3 Ab [Units/volume] in Serum 6.2 g/dL 6.4-8.2 [facility] ([facility]) Glomerular filtration rate/1.73 sq M pre dicted among non-blacks [Volume Rate/Area] in Serum or Plasma by Creatinine-based formula (MDRD) Laboratory test result [facility] Glomerular filtration rate/1.73 sq M pre dicted among blacks [Volume Rate/Area] in Serum or Plasma by Creatinine-based formula (MDRD) Laboratory test result [facility] <content>CHRONIC KIDNEY DISEASE STAGING PER NKF</content>
<content></content>
<content>STAGE I & II GFR >= 60 NORMAL TO MILDLY DECREASED</content>
<content>STAGE III GFR 30-59 MODERATELY DECREASED</content>
<content>STAGE IV GFR 15-29 SEVERELY DECREASED</content>
<content>STAGE V GFR <15 VERY LITTLE GFR LEFT</content>
<content>ESRD GFR <15 ON SNOW REMOVAL SUPERVISOR</content>
<content></content> A/G Ratio 1.58 CALC 1.00-1.90 [facility] ID Date Data Source [id number] 11/01/2019 07:41:00 AM EDT [facility] Name Value Range Interpretation Code Description Data Nehal rce(s) Supporting Document(s) Hemoglobin A1c/Hemoglobin.total in Blood 5.5 g/dL 4.8-5.6 [facility] Lab Result Notes: Pre-Diabetes 5.7 - 6.4 % Diabetes = or > 6.5% Glucose mean value [Mass/volume] in Blood Estimated fr om glycated hemoglobin 111 mg/dL 60-110 [facility] ID Date Data Source [id number] 11/01/2019 07:41:00 AM EDT [facility] Name Value Range Interpretation Code Description Data Nehal rce(s) Supporting Document(s) Leukocytes [#/volume] in Blood by Automated count 3.9 x10*3/UL 4.1-10 .9 [facility] ([facility]) Hemoglobin [Mass/volume] in Blood 12.3 g/dL 12.0-18.0 [facility] Erythrocytes [#/volume] in Blood by Automated count 3.77 x10*6/UL 4.2 0-6.30 [facility] NOTE: RESULT VERIFIED. MCV 94.7 fL 80.0-97.0 [facility] ([facility]) Hematocrit [Volume Fraction] of Blood by Automated count 35.7 % 3 7.0-51.0 [facility] MCHC 34.6 g/dL 31.0-38.0 [facility] ([facility]) MCH 32.8 pg 26.0-32.0 [facility] ([facility]) Erythrocyte distribution width [Ratio] by Automated count 14.4 % 11.6-13.7 [facility] ([facility]) MPV 8.2 FL 7.8-11.0 [facility] ([facility]) Platelets [#/volume] in Blood by Automated count 179 x10*3/UL 140-440 [facility] ([facility]) Lymph # 0.9 x10*3/UL 0.6-4.1 [facility] ([facility]) Mid % 8.7 % 1.7-9.3 [facility] ([facility]) Neut % 67.5 % 37.0-92.0 [facility] ([facility]) Lymph % 23.8 % 10.0-58.5 [facility] ([facility]) Neut # 2.6 x10*3/UL 2.0-7.8 [facility] ([facility]) Mid # 0.4 x10*3/UL 0.1-0.6 [facility] ([facility]) ID Date Data Source [id number] 11/01/2019 07:41:00 AM EDT [facility] Name Value Range Interpretation Code Description Data Nehal rce(s) Supporting Document(s) Hemoglobin A1c/Hemoglobin.total in Blood Laboratory test result [facility] Procedure Vital Signs ID Date Data Source [id number] Name Value Range Interpretation Code Description Data Source(s) Body mass index (BMI) [Ratio] 29.6 kg/m2 29.6 k g/m2 [facility] ([facility]) Body weight 206.00 [lb_av] 206.00 [lb_av] [facility] ([facility]) Body height 70 [in_i] 70 [in_i] [facility] ([facility]) 5'10" Diastolic blood pressure 70 mm[Hg] 70 mm[Hg] [facility] ([facility]) Systolic blood pressure 120 mm[Hg] 120 mm[Hg] [facility] ([facility]) Body mass index (BMI) [Ratio] 29.4 kg/m2 29.4 k g/m2 [facility] ([facility]) Body weight 205.00 [lb_av] 205.00 [[facility]_av] [facility] Body height 70 [in_i] 70 [in_i] [facility] ([facility]) 5'10" Heart rate 88 /min 88 /min [facility] ([facility]) Diastolic blood pressure 64 mm[Hg] 64 mm[Hg] [facility] ([facility]) Systolic blood pressure 122 mm[Hg] 122 mm[Hg] [facility] ([facility]) Body mass index (BMI) [Ratio] 29.6 kg/m2 29.6 k g/m2 [facility] ([facility]) Body weight 206.25 [lb_av] 206.25 [lb_av] [facility] Body height 70 [in_i] 70 [in_i] [facility] ([facility]) 5'10" Diastolic blood pressure 60 mm[Hg] 60 mm[Hg] [facility] ([facility]) Systolic blood pressure 120 mm[Hg] 120 mm[Hg] [facility] ([facility])
[2020-06-25 20:10] LABS: ALBUMIN 3.7 GM/DL (3.2-5.2); BILIRUBIN,TOTAL 1.7 MG/DL (0.2-1.0); C REACTIVE PROTEIN QUANTITATIV 14.3 MG/DL (0.00-0.30); CALCIUM LEVEL 8.5 MG/DL (8.8-10.2); CK-MB VALUE MASS 1.9 NG/ML (<3.6); CREATININE FOR GFR 1.44 MG/DL (0.70-1.30); GLOMERULAR FILTRATION RATE 50.6 (>42); MB/CK RELATIVE INDEX 0.17 (< OR =4); POTASSIUM SERUM 3.9 MEQ/L (3.5-5.1); TOTAL PROTEIN 6.8 GM/DL (6.4-8.2); TROPONIN I 0.06 NG/ML (< 0.10)
[2020-06-25 20:26] LABS: D-DIMER QUANT > 4000.00 ng/ml (<500)
[2020-06-25] MEDS ORDERED: IBUPROFEN 800 MG TAB PO ONE (20:30)
[2020-06-25] MEDS ORDERED: ISOVUE-370 76% 100ML VIAL As Ordered ONE (20:35)
[2020-06-25] MEDS ORDERED: METOPROLOL TART 12.5 MG PER 1/2 TAB PO SCH (21:00)
[2020-06-25] MEDS ORDERED: FOLI1TAB11 PO (21:28)
[2020-06-25] MEDS ORDERED: ASPI-161 PO (21:28)
[2020-06-25] MEDS ORDERED: SYNT100T PO (21:28)
--- NOTE | 2020-06-25 21:30 | REPVR ---
PROCEDURE INFORMATION: Exam: CT Angiography Chest With Contrast Exam date and time: 06/25/2020 8:41 PM Age: 79 years old Clinical indication: Shortness of breath; Additional info: SOB, tachycardia, covid ddimer TECHNIQUE: Imaging protocol: Computed tomographic angiography of the chest with intravenous contrast. 3D rendering (Not supervised by radiologist): MIP and/or 3D reconstructed images were created by the technologist. Radiation optimization: All CT scans at this facility use at least one of these dose optimization techniques: automated exposure control; mA and/or kV adjustment per patient size (includes targeted exams where dose is matched to clinical indication); or iterative reconstruction. Contrast material: ISOVUE 370; Contrast volume: 75 ml; Contrast route: INTRAVENOUS (IV); COMPARISON: [facility] PORTABLE CHEST X-RAY 06/25/2020 6:58 PM FINDINGS: Pulmonary arteries: There are no pulmonary emboli. Aorta: There is mild atherosclerosis in the thoracic aorta. There is no aortic dissection or aneurysm. Lungs: Bilateral semi-solid and solid pulmonary parenchymal infiltrates located predominantly peripherally extending to the pleural surfaces. Findings consistent with multifocal viral pneumonitis (organizing type) and known Covid diagnosis. Pleural space: Calcified pleural plaques consistent with asbestos exposure. Heart: Status post CABG. Lymph nodes: Mediastinal and bilateral hilar lymphadenopathy. Bones/joints: Status post sternotomy. Soft tissues: Unremarkable for patient age. IMPRESSION: 1. Bilateral semi-solid and solid pulmonary parenchymal infiltrates located predominantly peripherally extending to the pleural surfaces. Findings consistent with multifocal viral pneumonitis (organizing type) and known Covid diagnosis. 2. Calcified pleural plaques consistent with asbestos exposure. 3. Mediastinal and bilateral hilar lymphadenopathy. 4. Status post CABG. 5. There are no pulmonary emboli. 6. There is no aortic dissection or aneurysm. Electronically signed by: Gareth Lizarraga On 06/25/2020 21:30:02 PM
[2020-06-25] MEDS ORDERED: ACET-897 PO (21:32)
[2020-06-25] MEDS ORDERED: GNPLIQ18 PO (21:32)
[2020-06-25] MEDS ORDERED: REMDESIVIR 200 MG in NS 250 ML IV ONE (23:00)
[2020-06-25] MEDS ORDERED: ENOXAPARIN 100MG/1ML SYRINGE (J1650 PER 10MG) SC SCH (23:00)
[2020-06-25] MEDS ORDERED: METHOTREXATE 2.5 MG TAB (J8610 PER 2.5MG) PO SCH (23:00)
[2020-06-25] MEDS ORDERED: guaiFENesin DM LIQ 10ML UD PO PRN (23:00)
[2020-06-25 23:26] LABS: FIBRINOGEN 728 MG/DL (221-452)
[2020-06-25] MEDS ORDERED: NS 1,000 ML IV SCH (23:30)
--- NOTE | 2020-06-25 23:53 | HPEPDOC ---
[facility] Medical History & Physical Date of Admission Jun 25, 2020 Date of Service: Jun 25, 2020 Attending Physician: PADMA SCHREIBER MD History and Physical CHIEF COMPLAINT: AMS, COVID-exposure Date of symptom onset: 06/23/2020 Date of COVID+ test: 06/25/2020 HISTORY OF PRESENT ILLNESS: Wiley Ahmadi is a 79 YO M with history of CAD s/p 4-vessel CABG in 2008, HTN, HLD, RA on MTX who presents to the ED with 2 days symptoms of chills and lightheadedness and known Covid 19 exposure from his . The patient reports he has had chills, subjective fever, dizziness and overall fatigue that have worsened for the past 2 days. He denies any cough, worsened shortness of breath, nausea, vomiting or diarrhea. Upon initial presentation to the ED he was found to be confused, saturating 92% on room air but confusion has improved with treatment of his fever. Additionally, the patient has new onset atrial fibrillation with rate in the 160s. Initial workup showed patchy infiltrates consistent with viral pneumonia on chest x-ray and CT angiography of the chest was negative for pulmonary embolism. PAST MEDICAL HISTORY: 1. Hx of HI s/p CABG x4, 2008 2. Diastolic CHF, unk ejection fraction 3. Rheumatoid arthritis, diagnosed several years ago, on MTX 4. ?GIB? from ASA, 2014 5. HTN 6. HLD PAST SURGICAL HISTORY: 1. CABG 2008 2. Back surgery, 3. Cataract surgery, 2016 SOCIAL HISTORY: smoked 40 years, quit 1991 EtOH occasional Denies illicit drugs Lives at home with FAMILY HISTORY: Reviewed and noncontributory ALLERGIES: Please see below. REVIEW OF SYSTEMS: Constitutional: Reports subjective fever, chills, sweats, fatigue ENT/Mouth: Reports some nasal congestion Eyes: No Eye Pain, No Swelling, No Redness, No Foreign Body, No Discharge, No Vision Changes Cardiovascular: Denies chest pain, denies lower extremity edema Respiratory: No Cough, No Wheezing, reports dyspnea on exertion Gastrointestinal: No Nausea, No Vomiting, No Diarrhea, No Constipation, No Pain, No Heartburn, No Anorexia, No Dysphagia Genitourinary: No Dysuria Musculoskeletal: No Arthralgias, No Myalgias, No Joint Swelling, No Joint Stiffness, No Back Pain, No Neck Pain Skin: No Skin Lesions, No Pruritis Neuro: No Weakness, No Numbness, No Paresthesias, No Loss of Consciousness, No Syncope, No Dizziness, No Headache, No Coordination Changes, No Recent Falls Psych: No Anxiety/Panic, No Depression, No Insomnia, No Personality Changes, No Delusions HOME MEDICATIONS: Please see below. PHYSICAL EXAMINATION: VITAL SIGNS: see below GENERAL: alert and oriented, in no apparent distress, conversant in full sentences. HEENT: PERRL, EOMI, Oral mucous membranes are dry. NECK: The patient has no noted JVD. No adenopathy is appreciated. No thyromegaly CHEST/LUNGS: Lungs are rhonchorous throughout all lung hall. No wheezing noted. There is no subcutaneous air appreciated. There is no tenderness to the chest wall. HEART: Regular and tachycardic. No murmurs, rubs, or gallops are appreciated. Distal pulses are 2+. No carotid bruits appreciated. ABDOMEN: Soft, nontender, and nondistended. Bowel sounds are positive. No organomegaly is appreciated. No masses are appreciated. There are no peritoneal signs. There is no Buhl sign. EXTREMITIES: No peripheral edema. There is no focal long bone tenderness or deformity. SKIN: The patients skin is warm and dry, without rashes or lesions. PSYCHIATRIC: AAO x 3, normal mood/affect NEUROLOGIC: No obvious focal deficits LABORATORY DATA: See below. IMAGING: CT ANGIO CHEST: FINDINGS: Pulmonary arteries: There are no pulmonary emboli. Aorta: There is mild atherosclerosis in the thoracic aorta. There is no aortic dissection or aneurysm. Lungs: Bilateral semi-solid and solid pulmonary parenchymal infiltrates located predominantly peripherally extending to the pleural surfaces. Findings consistent with multifocal viral pneumonitis (organizing type) and known Covid diagnosis. Pleural space: Calcified pleural plaques consistent with asbestos exposure. Heart: Status post CABG. Lymph nodes: Mediastinal and bilateral hilar lymphadenopathy. Bones/joints: Status post sternotomy. Soft tissues: Unremarkable for patient age. IMPRESSION: 1. Bilateral semi-solid and solid pulmonary parenchymal infiltrates located predominantly peripherally extending to the pleural surfaces. Findings consistent with multifocal viral pneumonitis (organizing type) and known Covid diagnosis. 2. Calcified pleural plaques consistent with asbestos exposure. 3. Mediastinal and bilateral hilar lymphadenopathy. 4. Status post CABG. 5. There are no pulmonary emboli. 6. There is no aortic dissection or aneurysm. CXR: FINDINGS: There are extensive ill-defined bilateral perihilar infiltrates in the upper and lower lung hall consistent with viral pneumonia. Heart size is borderline unchanged. Prior sternotomy wires are noted. Monitoring electrodes are seen. No significant bony abnormality is seen.. IMPRESSION: Extensive bilateral ill-defined alveolar infiltrates consistent with viral pneumonia. MICROBIOLOGY: Please see below. ASSESSMENT: This is a 79-year-old male with history of CAD, HTN, rheumatoid arthritis on methotrexate who presents with 2 days subjective fevers, chills, lightheadedness found to be Covid 19 positive and with new onset atrial fibrillation. PLAN: 1. Covid 19 pneumonia: Admit to Covid floor -Inflammatory markers: Ferritin 1000 658, LDH 440, CK 1148, CRP 14.30, d-dimer greater than 4000 -Lactic acid noted to be elevated at 3.2 -CTA not concerning for PE -Dexamethasone 6 mg daily 10 days -Remdesivir 10 days -Tylenol/ibuprofen for fevers -Robitussin for cough/congestion -Continuous pulse oximetry -Titrate oxygen for saturation greater than 90% -Awake proning -Encourage use of incentive spirometer -Lovenox weight-based prophylactic dose, 40 mg every 12 hours -Trend inflammatory markers 2. New onset atrial fibrillation: likely 2/2 infection -Echocardiogram ordered and pending -CHADVASC: 5 points, "moderate high" stroke risk, on anticoagulation as above -Rate control as needed 3. History of dCHF?, unspecified. No prior Echo in chart -Echo ordered and pending. Not on any typical CHF medications? 4. History of RA on MTX: does not follow with Rheumatology -Holding MTX as continuation has been shown to increase mortality in hospitalized COVID patients -Continue folic acid 5. History of hypothyroidism: -TSH/T4 pending -Continue home Levothyroxine 6. HTN: -Continue Lisinopril 7. HLD: -Continue Pravastatin DVT ppx: Lovenox weight-based prophylactic dose DISPO: pending clinical improvement Vital Signs Vital Signs Date Time Temp Pulse Resp B/P (MAP) Pulse Ox O2 Delivery O2 Flow Rate FiO2 06/25/20 20:31 100.3 06/25/20 20:31 Room Air 95 06/25/20 20:15 135 105/62 (76) 92 Laboratory Data Labs 24H Laboratory Tests 2 06/25/20 19:03: Urine Color KAROLINA, Urine Appearance CLOUDYH, Urine pH 5.0, Urine Specific Harvey 1.031, Urine Protein 3+H, Urine Glucose (UA) NEGATIVE, Urine Ketones TRACEH, Urine Blood 3+H, Urine Nitrite NEGATIVE, Urine Bilirubin NEGATIVE, Urine Urobilinogen 4.0H, Urine Leukocyte Esterase NEGATIVE, Urine WBC (Auto) 2, Urine RBC (Auto) 3, Urine Hyaline Casts (Auto) 0, Urine Bacteria (Auto) NEGATIVE, Urine Squamous Epithelial Cells 0, Urine Amorphous Sediment SMALLH, Urine Mucus (Auto) SMALL, Urine Sperm (Auto) 06/25/20 19:05: Lactic Acid Level 3.2*H 06/25/20 19:06: Immature Granulocyte % (Auto) 0.8, Neutrophils (%) (Auto) 77.9H, Lymphocytes (%) (Auto) 9.7L, Monocytes (%) (Auto) 11.3H, Eosinophils (%) (Auto) 0.0, Basophils (%) (Auto) 0.3, Neutrophils # (Auto) 2.9, Lymphocytes # (Auto) 0.4L, Monocytes # (Auto) 0.4, Eosinophils # (Auto) 0.0, Basophils # (Auto) 0.0, Nucleated Red Blood Cells % (auto) 0.0, Immature Platelet Fraction 5.3, Prothrombin Time 15.9H, Prothromb Time International Ratio 1.24, Activated Partial Thromboplast Time 38.8H, D-Dimer, Quantitative > 4000.00H, Anion Gap 9, Glomerular Filtration Rate 50.6, Calcium Level 8.5L, Ferritin 1658H, Total Bilirubin 1.7H, Aspartate Amino Transf (AST/SGOT) 57H, Alanine Aminotransferase (ALT/SGPT) 35, Alkaline Phosphatase 71, Lactate Dehydrogenase 440H, Total Creatine Kinase 1148H, Creatine Kinase MB 1.9, Creatine Kinase MB Relative Index 0.17, Troponin I 0.06, C-Reactive Protein, Quantitative 14.30H, Total Protein 6.8, Albumin 3.7, Albumin/Globulin Ratio 1.2, Coronavirus (COVID-19)(PCR) POSITIVEA, Influenza Type A (RT-PCR) NEGATIVE, Influenza Type B (RT-PCR) NEGATIVE, Respiratory Syncytial Virus (PCR) NEGATIVE 06/25/20 19:15: Blood Gas Bicarbonate Standard 22.3, Arterial Blood pH 7.518H, Arterial Blood Partial Pressure CO2 23.6L, Arterial Blood Partial Pressure O2 59.1L, Arterial Blood Total CO2 19.5L, Arterial Blood HCO3 18.8L, Arterial Blood Base Excess - 2.4L, Arterial Blood Oxygen Saturation 92.7L CBC/BMP Laboratory Tests 06/25/20 19:06 Microbiology Microbiology 06/25/20 Blood Culture, Received Pending 06/25/20 Blood Culture, Received Pending Home Medications Scheduled Aspirin (Aspirin EC) 81 Mg Tablet.dr, 81 MG PO QHS Folic Acid (Folic Acid) 1 Mg Tablet, 1 MG PO DAILY Levothyroxine Sodium (Synthroid) 100 Mcg Tablet, 100 MCG PO DAILY Lisinopril (Lisinopril) 5 Mg Tab, 5 MG PO DAILY Methotrexate Sodium (Methotrexate) 2.5 Mg Tab, 17.5 MG PO QWEEK Pravastatin Sodium (Pravastatin Sodium) 40 Mg Tab, 40 MG PO QHS Scheduled PRN Acetaminophen (Tylenol Extra Strength) 500 Mg Tablet, 1,000 MG PO Q6H PRN for PAIN / FEVER Guaifenesin/Dextromethorphan (Tussin Dm Syrup) 118 Ml Syrup, 20 ML PO Q4H PRN for CONGESTION/COUGH Allergies Coded Allergies: No Known Allergies (Verified , 07/21/16) A-FIB/CHADSVASC A-FIB History Current/History of A-Fib/PAF?: Yes Current PO Anticoag Therapy: No Age/Risk Factor Scoring CHADSVASC: CHADSVASC Response (Comments) Value Age Risk Factor Age >/= 75 years old 2 Gender Risk Factor Male 0 Hx of CHF Yes 1 Hx of HTN Yes 1 Hx of Stroke/TIA/or VTE No 0 Hx of Diabetes No 0 Hx of Vascular Disease Yes 1 Total 5 Treatment Treatment ordered: Other Other anticoagulant ordered: Lovenox GME ATTESTATION GME ATTESTATION My faculty preceptor for this patient encounter was physically present during the encounter and was fully available. All aspects of the patient interview, examination, medical decision making process, and medical care plan development were reviewed and approved by the faculty preceptor. The faculty preceptor is aware and concurs with the plan as stated in the body of this note and will attest to such by his/her cosignature. ATTENDING NOTE TIME OF SERVICE 1225 AM I agree with Dr.Beshays Mackenzie as documented with the addition of the following: Mr. Ahmadi is a 79-year-old with a history of CAD/CABG HFpEF RA, hypertension and dyslipidemia who was diagnosed with Covid 19 recently; he was sent to the ER by his because she noted that he has been confused; he will be admitted for management of: # Sepsis secondary to multifocal bilateral COVID 19 PNA SIRS criteria: T 104.9 / HR 165 / WBC 3.7 / RR 22 Lactic acid >2 The pancytopenia, elevated CRP, transaminitis & coagulation abnormalities are 2/2 both COVID and sepsis Plan: target MAP at of least 65 to 70 / f/u Is and Os with target UOP of at least 0.5 ml/kg/H / f/u FSBS w target serum glucose 140-180 while acutely ill / f/u repeat lactic acid / Ceftriaxone, Azithromycin & Vancomycin for PNA / switch from Tussin to tessalon pearls / IVF /f/u blood cx, sputum culture, MRSA, legionella, strep pneumo and mycoplasma / Acetaminophen PRN for fever # Metabolic encephalopathy 2/2 infection Plan: frequent neuro checks # Newly diagnosed rapid A. fib Likely y 2/2 sepsis +/- COVID PNA Plan: f/u Mg, serial Trops / bc his BP is low and he has renal insufficiency will order amiodarone for rate control # TAMMY Plan: IVF / f/u ulytes for FENa / hold Lisinopril / avoid NSAIDs # HyperCPKemia Plan: trend CPK CAITY DARLING MD Jun 25, 2020 21:50 PADMA SCHREIBER MD Jun 26, 2020 02:07
[2020-06-26] VITALS (14 sets, daily range): BP systolic 95–136; BP diastolic 52–83
[2020-06-26] MEDS ORDERED: METOPROLOL TART 12.5 MG PER 1/2 TAB PO SCH
[2020-06-26] MEDS ORDERED: SODIUM CHLORIDE 0.9% INJ 10 ML SYR IV ONE ×2 (01:00→05:00)
[2020-06-26] MEDS ORDERED: ENOXAPARIN 100MG/1ML SYRINGE (J1650 PER 10MG) SC SCH ×2 (01:15→13:15)
[2020-06-26] MEDS ORDERED: NS 1,000 ML IV SCH (01:15)
--- OUTSIDE RECORDS SUMMARY | 2020-06-26 01:41 | CCD ---
Author Author [facility] Organization [facility] Address Unknown Phone Unavailable Care Team Providers Care Network Infrastructure Architect Name Role Phone Alexis Garay MD Unavailable [...] Unavailable Tanisha, Alexis Burkett MD Unavailable Unavailable [place], Alexis Burkett MD Unavailable Unavailable [place], Alexis Burkett MD Unavailable Unavailable Tanisha, Alexis Burkett MD Unavailable Unavailable Tanisha, Alexis Burkett MD Unavailable Unavailable Tanisha, Alexis Burkett MD Unavailable Unavailable TanishaAlexis MD Unavailable Unavailable [place]faxAlexis MD Unavailable Unavailable [place], Alexis Burkett MD Unavailable Unavailable Tanisha, Alexis Burkett MD Unavailable Unavailable Tanisha, Alexis Burkett MD Unavailable Unavailable Tanisha, Alexis Burkett MD Unavailable Unavailable [place], Alexis Burkett MD Unavailable Unavailable [place], Alexis Burkett MD Unavailable Unavailable [place], Alexis Burkett MD Unavailable Unavailable Tanisha, Alexis Burkett MD Unavailable Unavailable Tanisha, Alexis Burkett MD Unavailable Unavailable [place], Alexis Burkett MD Unavailable Unavailable Tanisha, Alexis Burkett MD Unavailable Unavailable [place], Alexis Burkett MD Unavailable Unavailable [place]faxAlexis MD Unavailable Unavailable [place]Alexis MD Unavailable Unavailable Tanisha, Alexis Burkett MD Unavailable Unavailable [place]faxAlexis MD Unavailable Unavailable [place]faxAlexis MD Unavailable Unavailable [place]faxAlexis MD Unavailable Unavailable [place]faxAlexis MD Unavailable Unavailable [place]faxAlexis MD Unavailable Unavailable ColfaxAlexis MD Unavailable Unavailable [place], Alexis Burkett MD Unavailable Unavailable [place], Alexis Burkett MD Unavailable Unavailable [place], Alexis Burkett MD Unavailable Unavailable Tanisha, Alexis Burkett MD Unavailable Unavailable [place], Alexis Burkett MD Unavailable Unavailable [place], Alexis Brukett MD Unavailable Unavailable [place]faxAlexis MD Unavailable Unavailable Tanisha, Alexis Burkett MD Unavailable Unavailable TanishaAlexis MD Unavailable Unavailable TanishaAlexis MD Unavailable Unavailable TanishaAlexis MD Unavailable Unavailable TanishaAlexis MD Unavailable Unavailable [place]faxAlexis MD Unavailable Unavailable TanishaAlexis MD Unavailable Unavailable TanishaAlexis MD Unavailable Unavailable [place]faxAlexis MD Unavailable Unavailable [place]faxAlexis MD Unavailable Unavailable Re-disclosure Warning The records [...] is protected by Article 27-F of the [facility] Public Health law. If you continue you may have access to information: Regarding HIV / AIDS; Provided by facilities licensed or operated by the [facility] Office of Mental Health; or Provided by the [facility] Office for People With Developmental Disabilities. If such information is present, then the following [facility] mandated warning applies: This information has [...] law may result in a fine or fpc sentence or both. A general authorization for [...] Bradley 1 2019 09:00:00 AM EST [facility] ([facility] ) Outpatient Attender: Kwadwo Bradley 0 11/04/2019 10:20:00 AM EDT [facility] ([facility] ) Immunizations Vaccine Date Status Description Data Source(s) Tdap 11/04/2019 11:20:00 AM EDT completed M [facility]ENT ([facility]) Medications Medication Brand Name Start Date [...] 12:00:00 AM EDT ORAL active [facility] ([facility]) Immunization Adminstration,1 Vaccine/Toxoid 11/04/2019 12:00 :00 AM EDT completed [facility] ([facility]) Medication administered onsite 2.5 mg [...] relationship to fowler Policy Fowler Plan Information [facility] [id number] SP [id number] MEDICARE [id number] SP [id number] [facility] [id number] SP [id number] SELF PAY ONLY [id number] SP [id number] [employer] Workers Compensation [id number] Self [id number] [place]/Umr (Old) Medigap Part B [id number] Self [id number] Medicare [facility] [employer] Medicare Primary [id number] Self [id number] Umr (New [place]) Medigap Part B [id number] Self [id number] [employer] Workers Compensation [id number] Self [id number] [place] [facility] [id number] Self [id number] Medicare Natl Govt Servic Medicare Primary [id number] Self [id number] [place] (pr) Medigap Part B [id number] Self [id number] Umr (pr) Medigap Part B [id number] Self [id number] Medicare [place] Primary [id number] Self [id number] [employer] Workers Compensation [id number] Self [id number] [place] (Old) Medigap Part B [id number] Self [id number] Medicare [facility] [employer] Medicare Primary [id number] Self [id number] [employer] Workers Compensation [id number] Self [id number] [place] (Old) Medigap Part B [id number] Self [id number] Medicare [facility] [employer] Medicare Primary [id number] Self [id number] UMR O [id number] S [id number] [place] PPO O [id number] S [id number] MEDICARE C [id number] S [id number] A [employer] Workers Compensation [id number] Self [id number] [place] (Old) Medigap Part B [id number] Self [id number] Medicare [facility] [employer] Medicare Primary [id number] Self [id number] [employer] Workers Compensation [id number] Self [id number] Umr [place] Ppo Medigap Part B [id number] Self [id number] Medicare Natl Govt Servic Medicare Primary [id number] Self [id number] [employer] Workers Compensation [id number] Self [id number] Umr [place] Ppo Medigap Part B [id number] Self [id number] Medicare [facility] [employer] Medicare Primary [id number] Self [id number] [place] (pr) Medigap Part B [id number] Self [id number] Medicare [place] Medicare Primary [id number] Self [id number] [place] (pr) Medigap Part B [id number] Self [id number] Medicare [place] Medicare Primary [id number] Self [id number] [place] [id number] SP [id number] MEDICARE [id number] SP [id number] A [employer] Workers Compensation [id number] Self [id number] Umr [place] Ppo Medigap Part B [id number] Self [id number] Medicare Natl Govt Servic Medicare Primary [id number] Self [id number] [employer] Workers Compensation [id number] Self [id number] Umr [place] Ppo Medigap Part B [id number] Self [id number] Medicare Natl Govt Servic Medicare Primary [id number] Self [id number] [place] (pr) Commercial [id number] Self [id number] [place] (pr) Commercial [id number] Self [id number] [place] (pr) Commercial [id number] Self [id number] [employer] Workers Compensation [id number] Self [id number] Umr [place] Ppo Medigap Part B [id number] Self [id number] Medicare Natl Govt Serv[employer] Medicare Primary [id number] Self [id number] [employer] Workers Compensation [id number] Self [id number] [place] Ppo Medigap Part B [id number] Self [id number] Medicare Natl Gov[employer] Serv[employer] Medicare Primary [id number] Self [id number] [employer] Workers Compensation [id number] Self [id number] [place] Ppo Medigap Part B [id number] Self [id number] Medicare Natl Govt Serv[employer] Medicare Primary [id number] Self [id number] [employer] Workers Compensation [id number] Self [id number] [place] Ppo Medigap Part B [id number] Self [id number] Medicare [place]l [employer]t Serv[employer] Medicare Primary [id number] Self [id number] [employer] Workers Compensation Self [place] Ppo Medigap Part B [id number] Self [id number] Medicare [place]l Govt Servic Medicare Primary Self POMCO PPO O [id number] S [id number] [employer] Workers Compensation Self [employer] Workers Compensation Self POMCO [id number] SP [id number] [employer] Workers Compensation Self [employer] Workers Compensation Self [employer] Workers Compensation Self [employer] Workers Compensation Self [employer] Workers Compensation Self MEDICARE UNAVAILABLE SP UNAVAILA BLE [employer] Workers Compensation Self [employer] [id number] SP [id number] [employer] Workers Compensation Self [employer] Workers Compensation Self [employer] Workers Compensation Self [employer] Workers Compensation Self [employer] Workers Compensation Self Surgeries/Procedures Procedure Description Date Indications Data Source(s) ECG ROUTINE ECG W/LEAST 12 LDS W/I&R 05/05/2020 12:00: 00 AM EST [facility] ([facility]) Results ID Date Data Source [id number] 05/15/2020 09:10:00 AM EST [facility] ([facility]) Name Value Range Interpretation Code Description Data Nehal rce(s) Supporting Document(s) [facility] Laboratory test result [facility] RESULTS DIAGNOSIS DIAGNOSIS: RT MID BACK 1MM- SEBORRHEIC KERATOSIS, INFLAMED RESULTS SIGNATURE Kenneth Hutchison MD Electronic Signature: 26 MAY 2020 04:47 PM CLINICAL INFORMATION CLINICAL INFORMATION SHAILA KER SPECIMEN DATA GROSS DESCRIPTION Received in 10% buffered formalin is a shave biopsy of skin measuring [id number]. The specimen is cut into 5 pieces and entirely submitted in 2 cassettes. MICROSCOPIC DESCRIPTION There is basket-weave and laminated orthokeratosis, and parakeratosis, overlying an epidermis characterized by papillomatosis, acanthosis, basaloid cells and horn pseudocysts. There is a mononuclear cell infiltrate in the papillary dermis. CPT Codes 83071 The CPT codes provided are for information purposes only, and are based on AMA guidelines without regard to specific payor requirements. END OF REPORT FINAL [facility]-ACC [facility],[address] [place] [address],[address] [facility],[place] [address]. [phone]. [phone]. Pathological Technician: Abraham Frazier MD [facility] [id number], [place] [id number], [place] [id number] Laboratory test finding (navigational concept) Laboratory test result [facility] ([facility]) ID Date Data Source [id number] 05/04/2020 09:14:00 AM EST [facility] ([facility]) Name Value Range Interpretation Code Description Data Nehal rce(s) Supporting Document(s) Thyrotropin [Units/volume] in Serum or Plasma by Detec tion limit <= 0.05 mIU/L 1.24 uIU/mL 0.36-3.74 [facility] ([facility] ) Thyroxine (T4) free [Mass/volume] in Serum or Plasma 1.21 ng/dL 0.76- 1.46 [facility] ([facility]) ID Date Data Source [id number] 05/04/2020 09:14:00 AM EST [facility] ([facility]) Name Value Range Interpretation Code Description Data Nehal rce(s) Supporting Document(s) Thyrotropin [Units/volume] in Serum or Plasma by Detec tion limit <= 0.05 mIU/L 1.18 uIU/mL 0.36-3.74 [facility] ([facility] ) ID Date Data Source [id number] 05/04/2020 09:14:00 AM EST [facility] ([facility]) Name Value Range Interpretation Code Description Data Nehal rce(s) Supporting Document(s) Cholesterol [Mass/volume] in Serum or Plasma 157 mg/dL 131-200 [facility] ([facility]) Cholesterol in HDL [Mass/volume] in Serum or Plasma 46 mg/dL 35-60 [facility] ([facility]) Triglyceride [Mass/volume] in Serum or Plasma 142 mg/dL 30-150 [facility] ([facility]) Cholesterol in LDL [Mass/volume] in Serum or Plasma by calcu lation 83 CALC 50-159 [facility] ([facility]) ID Date Data Source [id number] 05/04/2020 09:14:00 AM EST [facility] ([facility]) Name Value Range Interpretation Code Description Data Nehal rce(s) Supporting Document(s) Glucose [Mass/volume] in Serum or Plasma 118 mg/dL 74-99 [facility] ([facility]) 100-125 mg/dL PRE-DIABETES/FASTING >126 mg/dL DIABETES/FASTING Urea nitrogen [Mass/volume] in Serum or Plasma 18 mg/dL 7-18 [facility] ([facility]) Creatinine 0.7 mg/dL 0.6-1.3 [facility] Potassium [Moles/volume] in Serum or Plasma 3.7 meq/L 3.5-5.1 [facility] ([facility]) Chloride [Moles/volume] in Serum or Plasma 106 meq/L 98-107 [facility] ([facility]) Sodium [Moles/volume] in Serum or Plasma 145 meq/L 136-145 [facility] ([facility]) Alkaline phosphatase isoenzyme [Units/volume] in Serum or Pl asma 92 mg/dL 46-116 [facility] ([facility]) Carbon dioxide, total [Moles/volume] in Serum or Plasma 32 meq/L 21 -32 [facility] ([facility]) Calcium [Mass/volume] in Serum or Plasma 8.7 mg/dL 8.5-10.1 [facility] ([facility]) Total Bilirubin 1.2 mg/dL 0.2-1.0 [facility] ([facility]) Albumin [Mass/volume] in Serum or Plasma 4.0 g/dL 3.4-5.0 [facility] ([facility]) Aspartate aminotransferase [Enzymatic activity/volume] in Serum or Plasma 37 U/L 15-37 [facility] ([facility] ) Alanine aminotransferase [Enzymatic activity/volume] in Seru m or Plasma 42 U/L 12-78 [facility] ([facility]) Glomerular filtration rate/1.73 sq M pre dicted among non-blacks [Volume Rate/Area] in Serum or Plasma by Creatinine-based formula (MDRD) Laboratory test result [facility] A/G Ratio 1.54 CALC 1.00-1.90 [facility] Proteinase 3 Ab [Units/volume] in Serum 6.6 g/dL 6.4-8.2 [facility] ([facility]) Glomerular filtration rate/1.73 sq M pre dicted among blacks [Volume Rate/Area] in Serum or Plasma by Creatinine-based formula (MDRD) Laboratory test result [facility] ([facility]) <content>CHRONIC KIDNEY DISEASE STAGING PER NKF</content>
<content></content>
<content>STAGE I & II GFR >= 60 NORMAL TO MILDLY DECREASED</content>
<content>STAGE III GFR 30-59 MODERATELY DECREASED</content>
<content>STAGE IV GFR 15-29 SEVERELY DECREASED</content>
<content>STAGE V GFR <15 VERY LITTLE GFR LEFT</content>
<content>ESRD GFR <15 ON POT FISHER</content>
<content></content> ID Date Data Source [id number] 05/04/2020 09:14:00 AM EST [facility] ([facility]) Name Value Range Interpretation Code Description Data Nehal rce(s) Supporting Document(s) Leukocytes [#/volume] in Blood by Automated count 4.0 x10*3/UL 4.1-10 .9 [facility] ([facility]) Hemoglobin [Mass/volume] in Blood 12.8 g/dL 12.0-18.0 [facility] ([facility]) Erythrocytes [#/volume] in Blood by Automated count 3.88 x10*6/UL 4.2 0-6.30 [facility] ([facility]) Hematocrit [Volume Fraction] of Blood by Automated count 36.6 % 3 7.0-51.0 [facility] ([facility]) MCV 94.3 fL 80.0-97.0 [facility] MCH 33.0 pg 26.0-32.0 [facility] MCHC 35.0 g/dL 31.0-38.0 [facility] Erythrocyte distribution width [Ratio] by Automated count 14.4 % 11.6-13.7 [facility] ([facility]) Platelets [#/volume] in Blood by Automated count 167 x10*3/UL 140-440 [facility] ([facility]) MPV 8.5 FL 7.8-11.0 [facility] Lymph % 37.8 % 10.0-58.5 [facility] Mid % 8.2 % 1.7-9.3 [facility] Neut % 54.0 % 37.0-92.0 [facility] Lymph # 1.5 x10*3/UL 0.6-4.1 [facility] ([facility]) Mid # 0.4 x10*3/UL 0.1-0.6 [facility] ([facility]) Neut # 2.1 x10*3/UL 2.0-7.8 [facility] ([facility]) ID Date Data Source [id number] 12/16/2019 08:52:00 AM EDT [facility] ([facility]) Name Value Range Interpretation Code Description Data Nehal rce(s) Supporting Document(s) Thyrotropin [Units/volume] in Serum or Plasma by Detec tion limit <= 0.05 mIU/L 2.23 uIU/mL 0.36-3.74 [facility] ([facility] ) ID Date Data Source [id number] 11/01/2019 07:41:00 AM EDT [facility] ([facility]) Name Value Range Interpretation Code Description Data Nehal rce(s) Supporting Document(s) Thyrotropin [Units/volume] in Serum or Plasma by Detec tion limit <= 0.05 mIU/L 0.33 uIU/mL 0.36-3.74 [facility] ([facility] ) ID Date Data Source [id number] 11/01/2019 07:41:00 AM EDT [facility] ([facility]) Name Value Range Interpretation Code Description Data Nehal rce(s) Supporting Document(s) Triglyceride [Mass/volume] in Serum or Plasma 150 mg/dL 30-150 [facility] ([facility]) Cholesterol in LDL [Mass/volume] in Serum or Plasma by calcu lation 81 CALC 50-159 [facility] ([facility]) Cholesterol in HDL [Mass/volume] in Serum or Plasma 44 mg/dL 35-60 [facility] ([facility]) Cholesterol [Mass/volume] in Serum or Plasma 155 mg/dL 131-200 [facility] ([facility]) ID Date Data Source [id number] 11/01/2019 07:41:00 AM EDT [facility] ([facility]) Name Value Range Interpretation Code Description Data Nehal rce(s) Supporting Document(s) Urea nitrogen [Mass/volume] in Serum or Plasma 14 mg/dL 7-18 [facility] ([facility]) Creatinine 0.9 mg/dL 0.6-1.3 [facility] Glucose [Mass/volume] in Serum or Plasma 124 mg/dL 74-99 [facility] ([facility]) 100-125 mg/dL PRE-DIABETES/FASTING >126 mg/dL DIABETES/FASTING Sodium [Moles/volume] in Serum or Plasma 143 meq/L 136-145 [facility] ([facility]) Potassium [Moles/volume] in Serum or Plasma 3.9 meq/L 3.5-5.1 [facility] ([facility]) Chloride [Moles/volume] in Serum or Plasma 107 meq/L 98-107 [facility] ([facility]) Carbon dioxide, total [Moles/volume] in Serum or Plasma 29 meq/L 21 -32 [facility] ([facility]) Total Bilirubin 1.3 mg/dL 0.2-1.0 [facility] ([facility]) Calcium [Mass/volume] in Serum or Plasma 8.7 mg/dL 8.5-10.1 [facility] ([facility]) Alkaline phosphatase isoenzyme [Units/volume] in Serum or Pl asma 99 mg/dL 46-116 [facility] ([facility]) Aspartate aminotransferase [Enzymatic activity/volume] in Serum or Plasma 30 U/L 15-37 [facility] ([facility] ) Albumin [Mass/volume] in Serum or Plasma 3.8 g/dL 3.4-5.0 [facility] ([facility]) Alanine aminotransferase [Enzymatic activity/volume] in Seru m or Plasma 32 U/L 12-78 [facility] ([facility]) Proteinase 3 Ab [Units/volume] in Serum 6.2 g/dL 6.4-8.2 [facility] ([facility]) Glomerular filtration rate/1.73 sq M pre dicted among non-blacks [Volume Rate/Area] in Serum or Plasma by Creatinine-based formula (MDRD) Laboratory test result [facility] Glomerular filtration rate/1.73 sq M pre dicted among blacks [Volume Rate/Area] in Serum or Plasma by Creatinine-based formula (MDRD) Laboratory test result [facility] ([facility]) <content>CHRONIC KIDNEY DISEASE STAGING PER NKF</content>
<content></content>
<content>STAGE I & II GFR >= 60 NORMAL TO MILDLY DECREASED</content>
<content>STAGE III GFR 30-59 MODERATELY DECREASED</content>
<content>STAGE IV GFR 15-29 SEVERELY DECREASED</content>
<content>STAGE V GFR <15 VERY LITTLE GFR LEFT</content>
<content>ESRD GFR <15 ON POT FISHER</content>
<content></content> A/G Ratio 1.58 CALC 1.00-1.90 [facility] ([facility]) ID Date Data Source [id number] 11/01/2019 07:41:00 AM EDT [facility] Name Value Range Interpretation Code Description Data Nehal rce(s) Supporting Document(s) Hemoglobin A1c/Hemoglobin.total in Blood 5.5 g/dL 4.8-5.6 [facility] Lab Result Notes: Pre-Diabetes 5.7 - 6.4 % Diabetes = or > 6.5% Glucose mean value [Mass/volume] in Blood Estimated fr om glycated hemoglobin 111 mg/dL 60-110 [facility] ID Date Data Source [id number] 11/01/2019 07:41:00 AM EDT [facility] Name Value Range Interpretation Code Description Data Nehal rce(s) Supporting Document(s) Leukocytes [#/volume] in Blood by Automated count 3.9 x10*3/UL 4.1-10 .9 [facility] ([facility]) Hemoglobin [Mass/volume] in Blood 12.3 g/dL 12.0-18.0 [facility] ([facility]) Erythrocytes [#/volume] in Blood by Automated count 3.77 x10*6/UL 4.2 0-6.30 [facility] ([facility]) NOTE: RESULT VERIFIED. MCV 94.7 fL 80.0-97.0 [facility] [facility] Hematocrit [Volume Fraction] of Blood by Automated count 35.7 % 3 7.0-51.0 [facility] ([facility]) MCHC 34.6 g/dL 31.0-38.0 [facility] [facility] MCH 32.8 pg 26.0-32.0 [facility] ([facility]) Erythrocyte distribution width [Ratio] by Automated count 14.4 % 11.6-13.7 [facility] ([facility]) MPV 8.2 FL 7.8-11.0 [facility] ([facility]) Platelets [#/volume] in Blood by Automated count 179 x10*3/UL 140-440 [facility] ([facility]) Lymph # 0.9 x10*3/UL 0.6-4.1 [facility] ([facility]) Mid % 8.7 % 1.7-9.3 [facility] ([facility]) Neut % 67.5 % 37.0-92.0 [facility] ([facility]) Lymph % 23.8 % 10.0-58.5 [facility] ([facility]) Neut # 2.6 x10*3/UL 2.0-7.8 [facility] ([facility]) Mid # 0.4 x10*3/UL 0.1-0.6 [facility] ([facility]) ID Date Data Source [id number] 11/01/2019 07:41:00 AM EDT [facility] ([facility]) Name Value Range Interpretation Code Description Data Nehal rce(s) Supporting Document(s) Hemoglobin A1c/Hemoglobin.total in Blood Laboratory test result [facility] Procedure Vital Signs ID Date Data Source [id number] Name Value Range Interpretation Code Description Data Source(s) Body mass index (BMI) [Ratio] 29.6 kg/m2 29.6 k g/m2 [facility] ([facility]) Body weight 206.00 [lb_av] 206.00 [lb_av] [facility] ([facility]) Body height 70 [in_i] 70 [in_i] [facility] ([facility]) 5'10" Diastolic blood pressure 70 mm[Hg] 70 mm[Hg] [facility] ([facility]) Systolic blood pressure 120 mm[Hg] 120 mm[Hg] [facility] ([facility]) Body mass index (BMI) [Ratio] 29.4 kg/m2 29.4 k g/m2 [facility] ([facility]) Body weight 205.00 [lb_av] 205.00 [lb_av] [facility] Body height 70 [in_i] 70 [in_i] [facility] ([facility]) 5'10" Heart rate 88 /min 88 /min [facility] ([facility]) Diastolic blood pressure 64 mm[Hg] 64 mm[Hg] [facility] ([facility]) Systolic blood pressure 122 mm[Hg] 122 mm[Hg] [facility] ([facility]) Body mass index (BMI) [Ratio] 29.6 kg/m2 29.6 k g/m2 [facility] ([facility]) Body weight 206.25 [lb_av] 206.25 [lb_av] [facility] ([facility]) Body height 70 [in_i] 70 [in_i] [facility] ([facility]) 5'10" Diastolic blood pressure 60 mm[Hg] 60 mm[Hg] [facility] ([facility]) Systolic blood pressure 120 mm[Hg] 120 mm[Hg] [facility] ([facility])
[2020-06-26] MEDS ORDERED: guaiFENesin DM LIQ 10ML UD PO PRN (02:00)
[2020-06-26] MEDS ORDERED: NS 500 ML IV SCH (02:00)
[2020-06-26 02:07] LABS: FREE T4 1.38 NG/DL (0.76-1.46); THYROID STIMULATING HORMONE 0.692 uIU/ML (0.358-3.740)
[2020-06-26] MEDS: BENZONATATE 100 MG CAP PO SCH ×3 (02:13→17:49)
[2020-06-26] MEDS ORDERED: VANCOMYCIN HCL IV ONE (02:15)
[2020-06-26] MEDS ORDERED: FLUID PLACE HOLDER IV ONE (02:15)
[2020-06-26] MEDS: NS 1,000 ML IV SCH ×3 (02:38→21:47)
[2020-06-26 02:49] LABS: MAGNESIUM LEVEL 2.2 MG/DL (1.8-2.4); TROPONIN I 0.1 NG/ML (< 0.10)
[2020-06-26] MEDS ORDERED: REMDESIVIR 200 MG in NS 250 ML IV ONE (03:00)
[2020-06-26] MEDS ORDERED: AMIODARONE HCL 150 MG in IV 1 EA IV SCH (03:00)
[2020-06-26] MEDS ORDERED: AZITHROMYCIN INJ 500 MG, VIAL MATE ADAPTER 1 EACH in D5W 250 ML IV SCH ×2 (04:00→05:00)
[2020-06-26 04:46] LABS: HEMATOCRIT 35.3 % (42.0-52.0); HEMOGLOBIN 11.2 g/dl (13.5-17.5); MEAN CORPUSCULAR HEMOGLOBIN 32.1 pg (27.0-33.0); MEAN CORPUSCULAR HGB CONC 31.7 g/dl (32.0-36.5); MEAN CORPUSCULAR VOLUME 101.1 fl (80.0-96.0); RED BLOOD COUNT 3.49 10^6/uL (4.30-6.10); WHITE BLOOD COUNT 3.7 10^3/uL (4.0-10.0)
[2020-06-26 04:53] LABS: PLATELET COUNT, AUTOMATED 69 10^3/uL (150-450)
[2020-06-26] MEDS ORDERED: cefTRIAXone SOD 2 GM in D5W MINI-BAG PLUS 50 ML IV SCH (05:00)
[2020-06-26 05:13] LABS: ANISOCYTOSIS 1+; ATYPICAL LYMPH 4 % (0-5); LYMPHOCYTES 17 % (16-44); MONOCYTES 11 % (0-5); NEUTROPHILS 63 % (28-66); PLATELET ESTIMATE DECREASED (NORMAL)
[2020-06-26 05:14] LABS: POIKILOCYTOSIS 1+; POLYCHROMASIA 1+
[2020-06-26 05:22] LABS: HEMOGLOBIN A1c 5.1 %
[2020-06-26 05:27] LABS: D-DIMER QUANT 3512.11 ng/ml (<500)
[2020-06-26] MEDS: cefTRIAXone SOD 2 GM in D5W MINI-BAG PLUS 50 ML IV SCH (05:27)
[2020-06-26] MEDS: LEVOTHYROXINE 100MCG TABLET (0.1MG) PO SCH (05:27)
[2020-06-26 05:28] LABS: ALBUMIN 2.8 GM/DL (3.2-5.2); ALT/SGPT 31 U/L (12-78); BILIRUBIN,TOTAL 1.3 MG/DL (0.2-1.0); BLOOD UREA NITROGEN 26 MG/DL (7-18); CALCIUM LEVEL 7.3 MG/DL (8.8-10.2); CARBON DIOXIDE LEVEL 24 MEQ/L (21-32); CHLORIDE LEVEL 109 MEQ/L (98-107); CPK CREATINE PHOSPHOKINASE 1956 U/L (39-308); CREATININE FOR GFR 1.17 MG/DL (0.70-1.30); FERRITIN 1612 NG/ML (26-388); GLOMERULAR FILTRATION RATE > 60.0 (>42); GLUCOSE, FASTING 120 MG/DL (70-100); LDH LACTATE DEHYDROGENASE 392 U/L (87-241); POTASSIUM SERUM 3.2 MEQ/L (3.5-5.1); SODIUM LEVEL 143 MEQ/L (136-145); TROPONIN I 0.12 NG/ML (< 0.10)
[2020-06-26] MEDS ORDERED: POTASSIUM CHLORIDE 10 MEQ SR TABLET PO ONE (08:00)
[2020-06-26] MEDS: dexameTHASONE 4 MG/ML 1ML VIAL (J1100 PER 1MG) IV SCH (08:03)
[2020-06-26] MEDS: FOLIC ACID 1 MG TAB PO SCH (08:03)
--- NOTE | 2020-06-26 08:18 | ECGEPIP ---
[facility] Test Date: 2020-06-26 Pat Name: RAFIA MARIN Department: Room: [place] [address] Gender: Male Tagman: NUZHAT : 1940 Requested By: DANIEL FIGUEROA Order Number: [id number] Reading MD: Zoey Bradley Measurements Intervals [place] Rate: 101 P: VA: 0 QRS: 65 QRSD: 93 T: 73 QT: 368 QTc: 477 Interpretive Statements Normal Sinus Rhythm PACS LOW QRS VOLTAGE IN PRECORDIAL LEADS ANTEROSEPTAL MYOCARDIAL INFARCTION, OF INDETERMINATE AGE ATRIAL FIBRILLATION ON PRIOR 06/25/20 Electronically Signed on 06-26-2020 8:18:20 EST by Zoey Bradley
[2020-06-26] MEDS ORDERED: FOLIC ACID 1 MG TAB PO SCH (09:00)
[2020-06-26] MEDS ORDERED: dexameTHASONE 4 MG/ML 1ML VIAL (J1100 PER 1MG) IV SCH (09:00)
[2020-06-26] MEDS ORDERED: lisinopriL 5 MG TAB PO SCH ×2 (09:00)
[2020-06-26] MEDS ORDERED: LEVOTHYROXINE 100MCG TABLET (0.1MG) PO SCH (09:00)
--- NOTE | 2020-06-26 09:09 | IPNPDOC ---
Date Seen The patient was seen on 06/26/20. Progress Note SUBJECTIVE: 79-year-old male with a history of coronary artery disease status post CABG in 2008, hypertension, hyperlipidemia, rheumatoid arthritis and methotrexate presented to the ED with today's symptoms of chills and known exposure to cold from his . Patient has a positive for: In the ED. Concern for confusion despite 92% on room air. Patient's mentation improved with administration of acetaminophen as well as oxygen supplementation. Of note, patient developed onset. New-onset atrial fibrillation with RVR after the 160. Imaging showed findings consistent with covid-19 pneumonia. Patient was seen and examined at bedside this morning. He appears to be doing well. He is alert and oriented to person, time and place. He denies any chest pain, shortness of breath, nausea, vomiting, diarrhea or subjective fevers. He is however having active . He had diarrhea during the interview. Patient states that he did have diarrheaseveral days. Has not taken antibiotics recently, nor is he taking any laxatives. We'll test patient for C. difficile. Conjunctivae this morning continues to be in atrial fibrillation at the rate has been reduced to 102-105. Spoke to [facility] (see below), concern for fall and head injury on 06/25/20 before arrival to ED. Mentation improved but is waxing/waning. Will obtain CT head wo contrast. OBJECTIVE PHYSICAL EXAMINATION: VITAL SIGNS: please see below General: NAD, comfortable HEENT: PERRLA, EOMI, sclerae clear Neck: supple, normal ROM, no JVD Respiratory: lungs CTAB, no wheeze, no rales, no crackles CVS: RRR, normal S1, S2, no murmurs Abdo: soft, no masses, no hepatosplenomegaly, BS+, no rebound tenderness Extremities: no edema, pulses 2+ MSK: no joint deformities, normal ROM Neuro: no focal neuro deficits, moving all 4 extremities, CN2-12 intact. Strength 5/5 in all 4 extremities. No nystagmus. Psych: calm, cooperative, AAO x 3 LABORATORY DATA, IMAGING STUDIES, MICROBIOLOGY: Please see below. CT head wo contrast (06/26/20) Vascular calcification and generalized volume loss. Small vessel changes. No acute intracranial abnormality. Echocardiogram: Ordered on 06/25/20 as stat, pending. DVT prophylaxis ordered?: Full dose AC Lovenox due to a new onset A. fib. ASSESSMENT AND PLAN: 79-year-old male with a history of CAD status post CABG in 2008, hypertension, hyperlipidemia, arthritis and methotrexate presented to ER with confusion and shortness of breath, doesn't positive for Covid known exposure to his . Onset of symptoms 2 days ago. Thought to be in the new- onset A. fib with RVR. Admitted to hospitalist service for management of Covid 19 pneumonia with desaturation as well as new onset atrial fibrillation. PROBLEMS: Sepsis possible 2/2 covid-19 infection - elevated inflammatory markers, continue to trend. D dimer > 4000. - blood cultures pending - CTA showed no PE - continue dexamethasone (Day #2) - c/w Remdesivir (Day #2) - full-dose lovenox AC 1 mg/kg q12h - O2 support via NC - incentive spirometry Metabolic encephalopathy 2/2 sepsis vs head injury vs infection - per granddaughter, patient had fallen on 06/25/19 which prompted ambulance to be called - had urinary incontinence and diarrhea - will check CT head wo contrast to r/o bleed CVA. - if no bleed, will resume AC w/lovenox Troponin elevation - peak at 0.12, downtrending to 0.07 - no ischemic EKG changes - likely in setting of sepsis, afib w rvr. Thrombocytopenia - PLT 69. Likely 2/2 infection w covid. - check CT head to r/o bleed as fell on 06/25/20 at home - if no bleed, will c/w lovenox - trend PLT, monitor for bleeding #Diarrhea - watery, occuring during exam - no hx of abx, laxative - will check c diff as high risk group New-onset atrial fibrillation - possible due to covid pneumonia/sepsis - received amiodarone on admission - continues to be in afib - echo ordered stat on 06/25/20 pending - full dose AC with lovenox with plan to transition to eliquis - Discussed with Dr. Greer, agrees with full dose AC with lovenox - recommends DC amiodarone, start metoprolol 25 mg q6h PO with parameters Questionable hx of CHF - unspecified - appears euvolemic - echo pending RA on methotrexate - resume home meds Hypothyroidism - resume home levothyroxine HTN - continue lisinopril HDL - resume home statin DVT ppx: - lovenox, full dose pending CT head read. Dispo: - pending clinical improvement - I spoke to his , Chrissie Ahmadi ([phone]) and attempted to update her, but she requested that I speak to her granddaughter Rebecca Pagan ([phone]) as her grandmother is hard of hearing and relies heavily on the patient for assistance. She states that patient had fallen yesterday, unsure of head injury. VS, I&O, 24H, Fishbone Vital Signs/I&O Vital Signs Date Time Temp Pulse Resp B/P (MAP) Pulse Ox O2 Delivery O2 Flow Rate FiO2 06/26/20 06:00 88 103/56 (72) 88 Nasal Cannula 2.0 06/26/20 04:00 96.6 20 06/25/20 20:31 95 I&O- Last 24 Hours up to 6 AM 06/26/20 06:00 Intake Total 1620 ml Output Total 410 ml Balance 1210 ml Laboratory Data 24H LABS Laboratory Tests 2 06/25/20 19:03: Urine Color [place], Urine Appearance CLOUDYH, Urine pH 5.0, Urine Specific [place] 1.031, Urine Protein 3+H, Urine Glucose (UA) NEGATIVE, Urine Ketones TRACEH, Urine Blood 3+H, Urine Nitrite NEGATIVE, Urine Bilirubin NEGATIVE, Urine Urobilinogen 4.0H, Urine Leukocyte Esterase NEGATIVE, Urine WBC (Auto) 2, Urine RBC (Auto) 3, Urine Hyaline Casts (Auto) 0, Urine Bacteria (Auto) NEGATIVE, Urine Squamous Epithelial Cells 0, Urine Amorphous Sediment SMALLH, Urine Mucus (Auto) SMALL, Urine Sperm (Auto) 06/25/20 19:05: Lactic Acid Level 3.2*H 06/25/20 19:06: Immature Granulocyte % (Auto) 0.8, Neutrophils (%) (Auto) 77.9H, Lymphocytes (%) (Auto) 9.7L, Monocytes (%) (Auto) 11.3H, Eosinophils (%) (Auto) 0.0, Basophils (%) (Auto) 0.3, Neutrophils # (Auto) 2.9, Lymphocytes # (Auto) 0.4L, Monocytes # (Auto) 0.4, Eosinophils # (Auto) 0.0, Basophils # (Auto) 0.0, Nucleated Red Blood Cells % (auto) 0.0, Immature Platelet Fraction 5.3, Prothrombin Time 15.9H, Prothromb Time International Ratio 1.24, Activated Partial Thromboplast Time 38.8H, Fibrinogen 728H, D-Dimer, Quantitative > 4000.00H, Anion Gap 9, Glomerular Filtration Rate 50.6, Calcium Level 8.5L, Ferritin 1658H, Total Bilir ubin 1.7H, Aspartate Amino Transf (AST/SGOT) 57H, Alanine Aminotransferase (ALT/SGPT) 35, Alkaline Phosphatase 71, Lactate Dehydrogenase 440H, Total Creatine Kinase 1148H, Creatine Kinase MB 1.9, Creatine Kinase MB Relative Index 0.17, Troponin I 0.06, C-Reactive Protein, Quantitative 14.30H, Total Protein 6.8, Albumin 3.7, Albumin/Globulin Ratio 1.2, Coronavirus (COVID-19)(PCR) POSITIVEA, Influenza Type A (RT-PCR) NEGATIVE, Influenza Type B (RT-PCR) NEGATIVE, Respiratory Syncytial Virus (PCR) NEGATIVE 06/25/20 19:15: Blood Gas Bicarbonate Standard 22.3, Arterial Blood pH 7.518H, Arterial Blood Partial Pressure CO2 23.6L, Arterial Blood Partial Pressure O2 59.1L, Arterial Blood Total CO2 19.5L, Arterial Blood HCO3 18.8L, Arterial Blood Base Excess - 2.4L, Arterial Blood Oxygen Saturation 92.7L 06/26/20 01:15: Lactic Acid Followup at 4 Hours 2.2*H, Magnesium Level 2.2, Ferritin 1663H, Troponin I 0.10#, Thyroid Stimulating Hormone (TSH) 0.692, Free Thyroxine 1.38 06/26/20 03:56: Fibrinogen 641H, D-Dimer, Quantitative 3512.11H 06/26/20 03:57: Ferritin 1612H, Troponin I 0.12H, Neutrophils (%) (Auto) , Nucleated Red Blood Cells % (auto) 0.0, Neutrophils 63, Band Neutrophils 5, Lymphocytes (Manual) 17, Monocytes (Manual) 11H, Atypical Lymphocytes 4, Polychromasia 1+, Poikilocytosis 1+, Anisocytosis 1+, Macrocytosis 2+, Platelet Estimate DECREASED, Urine Random Creatinine 188.0, Urine Random Sodium 13, Urine Random Urea Nitrogen 1206, Anion Gap 10, Glomerular Filtration Rate > 60.0, Estimated Mean Plasma Glucose 100, Hemoglobin A1c 5.1, Calcium Level 7.3L, Total Bilirubin 1.3H, Aspartate Amino Transf (AST/SGOT) 62H, Alanine Aminotransferase (ALT/SGPT) 31, Alkaline Phosphatase 52, Lactate Dehydrogenase 392H, Total Creatine Kinase 1956H, C- Reactive Protein, Quantitative 14.50H, Total Protein 6.0L, Albumin 2.8#L, Albumin/Globulin Ratio 0.9, Methicillin-Resist S.aureus DNA PCR NOT DETECTED CBC/BMP Laboratory Tests 06/25/20 19:06 06/26/20 03:57 Microbiology Microbiology 06/25/20 Blood Culture, Received Pending 06/25/20 Blood Culture, Received Pending DANIEL FIGUEROA MD Jun 26, 2020 09:09
--- NOTE | 2020-06-26 11:01 | REP ---
INDICATION: ams, urinary incontinence. COMPARISON: Comparison brain MRI study is from September 03, 2015.. TECHNIQUE: Helical scanning is acquired. 5 mm axial images were reformatted. Coronal MPR images were generated. FINDINGS: Bone window settings demonstrate an intact bony calvarium. There is no evidence of skull fracture or incidental bony calvarial lesion. The visualized paranasal sinuses appear clear. No intraorbital abnormality is seen. On soft tissue window setting images; the lateral, third, and fourth ventricles are normal in size and position. Hensley-white differentiation pattern is normal above and below the tentorium. There are is no evidence of intracranial hemorrhage. No mass, edema, infarction, or midline shift is seen. No extra-axial fluid collection is appreciated. There is minimal generalized volume loss. Small vessel atherosclerotic changes are seen in the periventricular white matter of the frontal and lobes bilaterally unchanged from the MRI study. There is some vascular calcification in the distal internal carotid and distal vertebral arteries. IMPRESSION: Vascular calcification and generalized volume loss. Small vessel changes. No acute intracranial abnormality.. <Electronically signed by Francisco Roberts > 06/26/20 [id number]
[2020-06-26] MEDS: ENOXAPARIN 100MG/1ML SYRINGE (J1650 PER 10MG) SC SCH (12:54)
[2020-06-26] MEDS: METOPROLOL TART 25 MG TABLET PO SCH ×3 (12:54→21:47)
[2020-06-26] MEDS: ACETAMINOPHEN 500 MG TAB PO PRN ×2 (15:27→21:47)
[2020-06-26] MEDS ORDERED: VANCOMYCIN HCL 1,000 MG, VIAL MATE ADAPTER 1 EACH in D5W 250 ML IV ONE (18:00)
[2020-06-26] MEDS ORDERED: VANCOMYCIN HCL 750 MG, VIAL MATE ADAPTER 1 EACH in D5W 250 ML IV ONE (19:00)
[2020-06-26] MEDS: ASPIRIN 81 MG ENTERIC TAB PO SCH (19:41)
[2020-06-26] MEDS: PRAVASTATIN 20 MG TAB PO SCH (19:41)
--- NOTE | 2020-06-26 20:50 | ECGEPIP ---
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
[2020-06-26] MEDS ORDERED: PRAVASTATIN 20 MG TAB PO SCH (21:00)
[2020-06-26] MEDS ORDERED: ASPIRIN 81 MG ENTERIC TAB PO SCH (21:00)
[2020-06-26] MEDS ORDERED: REMDESIVIR 100 MG in NS 250 ML IV SCH (23:00)
[2020-06-27] VITALS (17 sets, daily range): BP systolic 90–148; BP diastolic 46–80
[2020-06-27] MEDS ORDERED: SODIUM CHLORIDE 0.9% INJ 10 ML SYR IV SCH
[2020-06-27] MEDS: ENOXAPARIN 100MG/1ML SYRINGE (J1650 PER 10MG) SC SCH ×2 (01:59→12:46)
[2020-06-27] MEDS: BENZONATATE 100 MG CAP PO SCH ×3 (01:59→17:14)
[2020-06-27] MEDS: SODIUM CHLORIDE 0.9% INJ 10 ML SYR IV SCH (04:26)
[2020-06-27] MEDS: REMDESIVIR 100 MG in NS 250 ML IV SCH (04:26)
[2020-06-27 05:11] LABS: HEMATOCRIT 32.7 % (42.0-52.0); HEMOGLOBIN 10.5 g/dl (13.5-17.5); MEAN CORPUSCULAR HGB CONC 32.1 g/dl (32.0-36.5); MEAN CORPUSCULAR VOLUME 99.7 fl (80.0-96.0); RED BLOOD COUNT 3.28 10^6/uL (4.30-6.10); WHITE BLOOD COUNT 2.8 10^3/uL (4.0-10.0)
[2020-06-27 05:13] LABS: PLATELET COUNT, AUTOMATED 64 10^3/uL (150-450)
[2020-06-27 05:31] LABS: LYMPHOCYTES 7 % (16-44); METAMYELOCYTES 5 % (0-0); MONOCYTES 4 % (0-5); NEUTROPHILS 69 % (28-66); PLATELET ESTIMATE DECREASED (NORMAL)
[2020-06-27 05:33] LABS: ANISOCYTOSIS 1+; D-DIMER QUANT 3139.37 ng/ml (<500); POLYCHROMASIA 1+
[2020-06-27] MEDS: LEVOTHYROXINE 100MCG TABLET (0.1MG) PO SCH (05:37)
[2020-06-27] MEDS: METOPROLOL TART 25 MG TABLET PO SCH ×4 (05:37→23:22)
[2020-06-27] MEDS: cefTRIAXone SOD 2 GM in D5W MINI-BAG PLUS 50 ML IV SCH (05:37)
[2020-06-27 05:53] LABS: ALBUMIN 2.6 GM/DL (3.2-5.2); ALT/SGPT 33 U/L (12-78); BILIRUBIN,TOTAL 0.9 MG/DL (0.2-1.0); BLOOD UREA NITROGEN 28 MG/DL (7-18); CALCIUM LEVEL 7.3 MG/DL (8.8-10.2); CARBON DIOXIDE LEVEL 27 MEQ/L (21-32); CHLORIDE LEVEL 109 MEQ/L (98-107); CPK CREATINE PHOSPHOKINASE 1898 U/L (39-308); CREATININE FOR GFR 1.06 MG/DL (0.70-1.30); FERRITIN 2894 NG/ML (26-388); GLOMERULAR FILTRATION RATE > 60.0 (>42); GLUCOSE, FASTING 139 MG/DL (70-100); LDH LACTATE DEHYDROGENASE 557 U/L (87-241); POTASSIUM SERUM 4.2 MEQ/L (3.5-5.1); SODIUM LEVEL 140 MEQ/L (136-145); TOTAL PROTEIN 5.1 GM/DL (6.4-8.2)
[2020-06-27] MEDS ORDERED: guaiFENesin DM LIQ 10ML UD PO PRN (06:00)
[2020-06-27] MEDS: VANCOMYCIN HCL 1,000 MG, VIAL MATE ADAPTER 1 EACH in D5W 250 ML IV SCH ×2 (07:51→19:59)
[2020-06-27] MEDS: FOLIC ACID 1 MG TAB PO SCH (08:03)
[2020-06-27] MEDS: dexameTHASONE 4 MG/ML 1ML VIAL (J1100 PER 1MG) IV SCH (08:04)
--- NOTE | 2020-06-27 09:00 | REP ---
INDICATION: sepsis. COMPARISON: 06/25/2020 at 7 p.m. TECHNIQUE: Portable FINDINGS: The technique utilized in obtaining the radiograph has magnified the cardiac silhouette and accentuated the interstitial markings. Once again, there are patchy airspace opacities seen diffusely throughout the lung hall. When the technical differences between the examinations are taken into consideration these opacities appear to have increased. There is mild cardiomegaly accentuated by technique. Note is again made of previous median sternotomy. IMPRESSION: Worsened bilateral airspace opacities consistent with pneumonia versus asymmetric pulmonary edema. <Electronically signed by Albert Parsons > 06/27/20 [id number]
--- NOTE | 2020-06-27 09:12 | IPNPDOC ---
Date Seen The patient was seen on 06/27/20. Progress Note SUBJECTIVE: 79-year-old male with a history of coronary artery disease status post CABG in 2008, hypertension, hyperlipidemia, rheumatoid arthritis and methotrexate presented to the ED with chills, diarrhea and malaise after known exposure to covid from his . Tested COVID-10 POSITIVE in ER. Concern for confusion despite 92% on room air. Patient's mentation improved with administration of acetaminophen as well as oxygen supplementation. Of note, patient developed new onset atrial fibrillation with RVR after the 160. Imaging showed findings consistent with covid-19 pneumonia. Patient admitted to ICU for management of sepsis and covid-19 pneumonia. Patient was seen and examined at bedside this morning. Patient is AAO x 3. Atrial fibrillation persists on telemtry, HR 140s. Blood pressure 110/60. RR 40. T 98.1. Patient was febrile overnight to 102.1. Desaturated to 77% on 6L NC, placed on NRB, improved Currently he is having rigors. Diarrhea has resolved. OBJECTIVE PHYSICAL EXAMINATION: VITAL SIGNS: please see below General: NAD, comfortable HEENT: PERRLA, EOMI, sclerae clear Neck: supple, normal ROM, no JVD Respiratory: lungs CTAB, no wheeze, no rales, no crackles CVS: RRR, normal S1, S2, no murmurs Abdo: soft, no masses, no hepatosplenomegaly, BS+, no rebound tenderness Extremities: no edema, pulses 2+ MSK: no joint deformities, normal ROM Neuro: no focal neuro deficits, moving all 4 extremities, CN2-12 intact. Strength 5/5 in all 4 extremities. No nystagmus. Psych: calm, cooperative, AAO x 3 LABORATORY DATA, IMAGING STUDIES, MICROBIOLOGY: Please see below. CT head wo contrast (06/26/20) Vascular calcification and generalized volume loss. Small vessel changes. No acute intracranial abnormality. Echocardiogram: Ordered on 06/25/20 as stat, pending. DVT prophylaxis ordered?: Full dose AC Lovenox due to a new onset A. fib. ASSESSMENT AND PLAN: 79-year-old male with a history of CAD status post CABG in 2008, hypertension, hyperlipidemia, arthritis and methotrexate presented to ER with confusion and shortness of breath, doesn't positive for Covid known exposure to his . Onset of symptoms 2 days ago. Thought to be in the new- onset A. fib with RVR. Admitted to hospitalist service for management of Covid 19 pneumonia with desaturation as well as new onset atrial fibrillation. Severe sepsis, likely source is bacterial pneumonia. PROBLEMS: Sepsis 2/2 bacterial pneumonia, in setting of covid-19 infection - elevated inflammatory markers, continue to trend. D dimer > 4000. - blood cultures (06/26/20) prelim positive gram positive cocci in clusters - procalcitonin 71.15. - vancomycin (Day 2), cefepime (day 1). Received ceftriaxone in ER. - LA 2.8 - 1L NS bolus ordered, repeat LA in 4 hours - signwriter consult, discussed with Dr. Toussaint. #Covid-19 infection - positive on 06/26/20, known exposure to - CTA showed no PE - c/w Remdesivir (Day #07/15) - full-dose lovenox AC 1 mg/kg q12h - O2 support via NC - incentive spirometry New-onset atrial fibrillation - possible due to covid pneumonia/sepsis - received amiodarone on admission - continues to be in afib - echo ordered stat on 06/25/20 pending - full dose AC with lovenox with plan to transition to eliquis - Discussed with Dr. Greer, agrees with full dose AC with lovenox - metoprolol 25 mg q6h PO with parameters - add digoxin 0.25 mg IV q6h x 4 doses, proceed with 0.25 mg PO daily doses depending on renal function Metabolic encephalopathy 2/2 sepsis vs head injury vs infection - per granddaughter, patient had fallen on 06/25/19 which prompted ambulance to be called - had urinary incontinence and diarrhea - will check CT head wo contrast to r/o bleed CVA. - if no bleed, will resume AC w/lovenox Troponin elevation - peak at 0.12, downtrending to 0.07 - no ischemic EKG changes - likely in setting of sepsis, afib w rvr. Thrombocytopenia - PLT 69. Likely 2/2 sepsis, infection w covid. - check CT head to r/o bleed as fell on 06/25/20 at home - CT head negative - if no bleed, will c/w lovenox - trend PLT, monitor for bleeding #Diarrhea - watery, occuring during exam - no hx of abx, laxative - will check c diff as high risk group Questionable hx of CHF - unspecified - appears euvolemic - echo pending RA on methotrexate - resume home meds Hypothyroidism - resume home levothyroxine HTN - continue lisinopril HDL - resume home statin DVT ppx: - lovenox, full dose pending CT head read. Dispo: - pending clinical improvement - I spoke to his , Chrissie Ahmadi ([phone]) and attempted to update her, but she requested that I speak to her granddaughter Rebecca Pagan ([phone]). Rebecca states that her grandmother relies heavily on the patient for assistance. I explained that patient's clinica picture is critical at time given severe sepsis. I answered all questions in detail. I further had a goals of care discussion with Rebecca, her brother Wiley ([phone]) and the patient's Mrs. Chrissie Jama who agreed with DNR/DNI given prior cardiac history and numerous active issues including severe sepsis and covid-19 pneumonia requiring vapotherm. VS, I&O, 24H, Fishbone Vital Signs/I&O Vital Signs Date Time Temp Pulse Resp B/P (MAP) Pulse Ox O2 Delivery O2 Flow Rate FiO2 06/27/20 06:00 98.1 95 28 118/59 (78) 93 Nasal Cannula 6.0 06/25/20 20:31 95 I&O- Last 24 Hours up to 6 AM 06/27/20 06:00 Intake Total 5010 ml Output Total 995 ml Balance 4015 ml Laboratory Data 24H LABS Laboratory Tests 2 06/26/20 10:20: Troponin I 0.07# 06/26/20 12:52: Bedside Glucose (Misc Panel) 179H 06/26/20 16:45: Bedside Glucose (Misc Panel) 160H 06/26/20 23:34: Bedside Glucose (Misc Panel) 145H 06/27/20 04:51: Immature Granulocyte % (Auto) , Neutrophils (%) (Auto) , Nucleated Red Blood Cells % (auto) 0.0, Neutrophils 69H, Band Neutrophils 15H, Lymphocytes (Manual) 7L, Monocytes (Manual) 4, Metamyelocytes 5H, Polychromasia 1+, Anisocytosis 1+, Platelet Estimate DECREASED, Immature Platelet Fraction 6.9, Fibrinogen 593H, D- Dimer, Quantitative 3139.37H, Anion Gap 4L, Glomerular Filtration Rate > 60.0, Calcium Level 7.3L, Ferritin 2894H, Total Bilirubin 0.9, Aspartate Amino Transf (AST/SGOT) 79H, Alanine Aminotransferase (ALT/SGPT) 33, Alkaline Phosphatase 47, Lactate Dehydrogenase 557H, Total Creatine Kinase 1898H, C-Reactive Protein, Quantitative 13.00H, Total Protein 5.1L, Albumin 2.6L, Albumin/Globulin Ratio 1.0 06/27/20 08:25: Lactic Acid Level 2.8*H CBC/BMP Laboratory Tests 06/27/20 04:51 Microbiology Microbiology 06/26/20 Blood Culture, Received Pending 06/26/20 Blood Culture, Received Pending 06/25/20 Blood Culture - Preliminary, Resulted No growth after 24 hours . All specim... 06/25/20 Blood Culture - Preliminary, Resulted DANIEL FIGUEROA MD Jun 27, 2020 09:12
[2020-06-27] MEDS ORDERED: NS 1,000 ML IV ONE (09:15)
[2020-06-27] MEDS: DIGOXIN INJ 0.5 MG/2 ML AMP (J1160) IV SCH ×3 (09:51→20:00)
[2020-06-27 09:56] LABS: NT-PRO BNP 1745 PG/ML (<450)
[2020-06-27] MEDS ORDERED: AMIODARONE HCL 150 MG in IV 1 EA IV ONE (10:30)
[2020-06-27] MEDS: BARICITINIB 2MG TABLET (OLUMIANT) FOR EUA PO SCH (10:39)
[2020-06-27] MEDS ORDERED: AMIODARONE HCL 360 MG in IV 1 EA IV SCH ×2 (10:40→16:40)
[2020-06-27] MEDS: ACETAMINOPHEN 500 MG TAB PO PRN ×2 (11:18→12:45)
[2020-06-27] MEDS: ALBUTEROL 90 MCG/ACT 8GM HFA INHALER INH SCH ×3 (12:21→20:33)
--- NOTE | 2020-06-27 13:39 | CR ---
PULMONARY/CRITICAL CARE CONSULTATION DATE: 06/27/20 CHIEF COMPLAINTS: 1. Shortness of breath. 2. Altered mental status. HISTORY OF PRESENT ILLNESS: Mr. Ahmadi is a 79-year-old male with a past medical history of CAD status post CABG, hypertension, hyperlipidemia, rheumatoid arthritis on methotrexate, CHF who presented with complaints of chills and fatigue as well as with some altered mental status. Patient on admission was also found to be in new onset atrial fibrillation with a rapid ventricular response. He did also have acute hypoxemic respiratory failure initially requiring nasal cannula oxygen supplementation. Patient was also febrile and thought to be in sepsis. He was given I.V. fluid boluses for his sepsis. He was also started on digoxin for rate control and Lovenox for anticoagulation. Patient was also given remdesivir and dexamethasone initially on admission. Patient was also noted to have episodes of diarrhea as well. A C. difficile was ordered, but not sent as his diarrhea had improved. He did have some episodes of confusion as well yesterday and he did have a head CT done which did not show any acute findings. This morning he was noted to have worsening hypoxia and tachypnea. He also appeared to be more confused at times. He was initially on nasal cannula oxygen supplementation with increasing requirements overnight and this morning was placed on a nonrebreather in addition to his nasal cannula oxygen. On questioning he does endorse more difficulty breathing and he does appear more tachypneic today. He is also somewhat more lethargic although is still answering questions at times appropriately, but other times confused. He denies any chest pain currently. He does continue to have some cough which is non-productive. He continues to have fevers as well. Patient's heart rate does continue to be elevated at times. He went into rapid ventricular response again this morning. PAST MEDICAL AND SURGICAL HISTORY: 1. History of [place] and CAD status post CABG in 2008. 2. CHF. 3. Rheumatoid arthritis on methotrexate. 4. Prior history of GI bleed. 5. Hypertension. 6. Hyperlipidemia. 7. Back surgery. 8. Cataract surgery. HOME MEDICATIONS: 1. Aspirin. 2. Folic acid. 3. Synthroid. 4. Lisinopril. 5. Methotrexate. 6. Pravastatin. 7. Tylenol. 8. Tussin DM. ALLERGIES: No known drug allergies. FAMILY HISTORY: Noncontributory. SOCIAL HISTORY: Former smoker, was less than a pack a day for approximately 40 years quit in 1991. Occasional alcohol use. No other drug use. Lives at home with his elderly . PHYSICAL EXAMINATION: Vitals: T-max 102.1, T-current 98.1, pulse 148, respiratory rate 28, blood pressure 118/59, O2 sat 85% on 6 liters nasal cannula. In 4.7 liters, out 1 liter, net positive 3.6 liters. General: Patient is an elderly male. He is sitting on the bed and appears tachypneic and is using accessory muscles for respiration. He is able to speak in short sentences. He does appear confused at times. HEENT: Normocephalic, atraumatic. Moist mucous membranes noted. Neck: Supple, trachea is midline, unable to clearly evaluate JVD. Cardiac: Tachycardic, irregularly irregular, normal S1 and S2, unable to clearly appreciate any murmurs. Pulmonary: Coarse breath sounds bilaterally with some occasional wheeze and rhonchi. There are crackles bilaterally more on the left base. Abdomen: Obese, soft, mildly tender and nondistended. There is a reducible hernia. Extremities: There is no significant lower extremity edema bilaterally. The patient appears to have some chills and shivering. LABORATORY DATA: WBC 2.8, hemoglobin 10.5, platelets 64. Chemistry: Sodium 140, potassium 4.2, chloride 109, bicarb 27, BUN 28, creatinine 1.06, glucose 139, calcium 7.3. AST/ALT 73 and 79. Ferritin is 2894. LVH is 557. CK 1898. Troponin 0.07. CRP 13. Procalcitonin 71.15. Lactic acid 2.8. D-dimer was 3139. Fibrinogen 593. Microbiology: Blood cultures: Gram-positive cocci on admission. Repeat blood culture: No growth to date. IMAGING: CT angio on 06/25/20 shows bilateral patchy opacities with ground glass and areas of consolidation more in the periphery. There is no evidence of pulmonary embolism. There is mild and mediastinal hilar adenopathy. There is calcified pleural plaques. Chest x-ray 06/27/20: Worsening bilateral patchy opacities. ASSESSMENT AND PLAN: Mr. Ahmadi is a 79-year-old male with a history of CAD, hypertension, hyperlipidemia, CHF and rheumatoid arthritis on methotrexate who presented with complaints of fevers, chills and confusion. Patient was found to be COVID-19 positive on admission and he had acute hypoxemic respiratory failure in the setting of COVID-19 pneumonia as well as a possible superimposed bacterial pneumonia. Patient was also noted to be in new onset atrial fibrillation with rapid ventricular response during this admission. He was started on remdesivir and dexamethasone initially and nasal cannula oxygen. He has continued to require increasing amounts of oxygen supplementation this morning and was now placed on a nonrebreather. He has also been on broad spectrum antibiotics since his admission, but does continue to be febrile and with leukopenia now. Patient was also on digoxin for rate control, but he does continue to have episodes of atrial fibrillation with rapid ventricular response. 1. Acute hypoxemic respiratory failure in the setting of COVID-19 pneumonia with sepsis with likely superimposed bacterial pneumonia: Continue patient on remdesivir, but we will discontinue dexamethasone and start him on baricitinib instead given his worsening hypoxic respiratory failure and need for high flow nasal cannula oxygen supplementation. We will discontinue the nonrebreather and place patient on high flow nasal cannula oxygen supplementation. He is still tachypneic and we will monitor closely. If he has worsening tachypneic and distress then would likely place him on noninvasive ventilation with BiPAP. We will continue with broad spectrum antibiotics with vancomycin and cefepime. His initial blood culture prelim showed Gram-positive cocci with repeat blood culture no growth to date. We will also encourage patient for awake pronation as tolerated. He does have some waxing and waning mental status and confusion at times so this may make it difficult. Patient is on full dose anticoagulation with Lovenox in the setting of his new onset atrial fibrillation which we will continue with close monitoring for bleeding. 2. New onset atrial fibrillation with previous history of CAD and CABG: Patient was given digoxin load. He was also started on metoprolol for rate control, but does continue to have episodes of rapid ventricular response likely in the setting of his sepsis as well as with his hypoxemic respiratory failure. Given concern for sepsis would discontinue metoprolol and would start him on amiodarone for rate control as his blood pressures have also been softer today. Can continue with digoxin with monitoring of renal function and digoxin level. Will follow up results of his echo. I would hold off on further I.V. fluids given his elevated BNP. He does have some mildly elevated CPK, but negative troponins. Some of this is likely in the setting of his previous fall prior to his admission. We will continue to monitor and would attempt to keep patient more net even or only slightly positive given concern for component of pulmonary edema contributing to his hypoxia. If he does have episodes of hypotension can give I.V. fluid boluses as needed. We will hold his lisinopril. We will continue pravastatin for now with close monitoring of his LFTs while on remdesivir and we will discontinue his statin if he has worsening transaminitis. Can continue with aspirin 81 mg. 3. Thrombocytopenia likely secondary to sepsis as well as possibly with medications: We will continue to monitor his DIC panel. Patient does not appear to be in clinical DIC at this time. We will continue the anticoagulation for now, but if his platelets are less than 50 would have to hold his anticoagulation. 4. Hypothyroidism: Continue with home medications. 5. Rheumatoid arthritis: On methotrexate; we will hold his methotrexate given his sepsis. CODE STATUS: Patient is currently Full Code. There has been discussion; however, with patient's and ultimately granddaughter as patient's while the documented Health Care Proxy has elected to have the granddaughter Malathi make the medical decisions in her place. There is discussion ongoing with the family about possible DNR/DNI. Total critical care time spent not including any procedures approximately 1 hour and 30 minutes. ERI
--- NOTE | 2020-06-27 14:06 | ECGEPIP ---
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
[2020-06-27] MEDS: CEFEPIME HCL 2 GM in D5W MINI-BAG PLUS 50 ML IV SCH ×2 (14:44→21:23)
[2020-06-27] MEDS: ASPIRIN 81 MG ENTERIC TAB PO SCH (20:00)
[2020-06-27] MEDS: PRAVASTATIN 20 MG TAB PO SCH (20:00)
[2020-06-28] VITALS (21 sets, daily range): BP systolic 95–192; BP diastolic 55–133; O2SAT 85–97
[2020-06-28] MEDS ORDERED: METOPROLOL 5 MG/5 ML VIAL As Ordered ONE (00:42)
[2020-06-28] MEDS: ENOXAPARIN 100MG/1ML SYRINGE (J1650 PER 10MG) SC SCH (00:42)
[2020-06-28] MEDS ORDERED: FUROSEMIDE 40MG/4ML VIAL (J1940) IV ONE (00:45)
[2020-06-28] MEDS ORDERED: HALOPERIDOL 5MG/ML VIAL (J1630 PER 1) As Ordered ONE (00:57)
[2020-06-28] MEDS ORDERED: haloperidoL 1 MG TAB PO ONE (01:00)
[2020-06-28 01:24] LABS: ABG BASE EXCESS -8.7 (-2.0-2.0); ABG HCO3 18.1 MEQ/L (22.0-26.0); ABG O2 SATURATION 97.6 % (95.0-99.0); ABG PARTIAL PRESSURE CO2 42.2 mmHg (35.0-45.0); ABG PARTIAL PRESSURE O2 110.4 mmHg (75.0-100.0); ABG STANDARD HCO3 17.6 MEQ/L (22.0-26.0); ABG TOTAL CO2 19.4 MEQ/L (23.0-31.0); ABG pH (ARTERIAL) 7.251 UNITS (7.350-7.450)
[2020-06-28] MEDS: BENZONATATE 100 MG CAP PO SCH ×2 (02:00→10:12)
[2020-06-28] MEDS ORDERED: MIDAZOLAM INJ 2MG/2ML VIAL (J2250 PER 1MG) IV STA (02:22)
[2020-06-28] MEDS ORDERED: LORazepam 2 MG/ML VIAL As Ordered ONE (02:28)
[2020-06-28] MEDS ORDERED: HALOPERIDOL 5MG/ML VIAL (J1630 PER 1) IV ONE (02:30)
[2020-06-28] MEDS ORDERED: LORazepam 2 MG/ML VIAL IV STA ×4 (02:31→11:48)
[2020-06-28] MEDS ORDERED: METOPROLOL 5 MG/5 ML VIAL IV STA (02:47)
[2020-06-28] MEDS: DIGOXIN INJ 0.5 MG/2 ML AMP (J1160) IV SCH (03:00)
[2020-06-28] MEDS: REMDESIVIR 100 MG in NS 250 ML IV SCH (03:54)
[2020-06-28] MEDS: SODIUM CHLORIDE 0.9% INJ 10 ML SYR IV SCH (03:54)
[2020-06-28 04:08] LABS: BASO % 0.7 % (0.0-1.0); HEMATOCRIT 35.1 % (42.0-52.0); HEMOGLOBIN 11.4 g/dl (13.5-17.5); LYMPH # 0.3 10^3/uL (1.5-5.0); LYMPH % 10.4 % (24.0-44.0); MEAN CORPUSCULAR HEMOGLOBIN 31.6 pg (27.0-33.0); MEAN CORPUSCULAR HGB CONC 32.5 g/dl (32.0-36.5); MEAN CORPUSCULAR VOLUME 97.2 fl (80.0-96.0); MONO # 0.1 10^3/uL (0.0-0.8); MONO % 3.7 % (0.0-5.0); NEUTROPHILS # 2.5 10^3/uL (1.5-8.5); NEUTROPHILS % 83.5 % (36.0-66.0); PLATELET COUNT, AUTOMATED 102 10^3/uL (150-450); RED BLOOD COUNT 3.61 10^6/uL (4.30-6.10)
[2020-06-28 04:16] LABS: FIBRINOGEN 546 MG/DL (221-452)
[2020-06-28 04:34] LABS: D-DIMER QUANT > 4000 ng/ml (<500)
[2020-06-28 04:55] LABS: ALBUMIN 2.8 GM/DL (3.2-5.2); BILIRUBIN,TOTAL 0.7 MG/DL (0.2-1.0); C REACTIVE PROTEIN QUANTITATIV 10.3 MG/DL (0.00-0.30); CALCIUM LEVEL 7.6 MG/DL (8.8-10.2); CREATININE FOR GFR 1.39 MG/DL (0.70-1.30); GLOMERULAR FILTRATION RATE 52.7 (>42); POTASSIUM SERUM 4.2 MEQ/L (3.5-5.1); TOTAL PROTEIN 5.6 GM/DL (6.4-8.2)
[2020-06-28] MEDS: METOPROLOL TART 25 MG TABLET PO SCH ×2 (06:00→08:05)
[2020-06-28] MEDS: LEVOTHYROXINE 100MCG TABLET (0.1MG) PO SCH (06:00)
[2020-06-28] MEDS: CEFEPIME HCL 2 GM in D5W MINI-BAG PLUS 50 ML IV SCH (06:41)
[2020-06-28] MEDS: ALBUTEROL 90 MCG/ACT 8GM HFA INHALER INH SCH ×2 (07:38→11:34)
[2020-06-28] MEDS: VANCOMYCIN HCL 1,000 MG, VIAL MATE ADAPTER 1 EACH in D5W 250 ML IV SCH (08:01)
[2020-06-28] MEDS: BARICITINIB 2MG TABLET (OLUMIANT) FOR EUA PO SCH (08:04)
[2020-06-28] MEDS: FOLIC ACID 1 MG TAB PO SCH (08:04)
[2020-06-28] MEDS ORDERED: PREVNAR 13 VACCINE SYRINGE IM ONE (09:00)
[2020-06-28] MEDS ORDERED: FLUBLOK(EGG FREE)(QUAD)INFLUENZA VACC 0.5ML SYRINGE 18YRS & OLDER IM ONE (09:00)
[2020-06-28] MEDS ORDERED: D5W/0.45% SODIUM CHLORIDE 1,000 ML IV SCH (10:00)
--- NOTE | 2020-06-28 10:22 | IPNPDOC ---
Date Seen The patient was seen on 06/28/20. Progress Note SUBJECTIVE: 79-year-old male with a history of coronary artery disease status post CABG in 2008, hypertension, hyperlipidemia, rheumatoid arthritis and methotrexate presented to the ED with chills, diarrhea and malaise after known exposure to covid from his . Tested COVID-10 POSITIVE in ER. Concern for confusion despite 92% on room air. Patient's mentation improved with administration of acetaminophen as well as oxygen supplementation. Of note, patient developed new onset atrial fibrillation with RVR after the 160. Imaging showed findings consistent with covid-19 pneumonia. Patient admitted to ICU for management of sepsis and covid-19 pneumonia. Overnight, patient was hypoxic on vapotherm, swithced on bipap. Anxiety attack, given ativan. Patient's HR was in the 140s, amiodarone drip was started. Granddaughter Rebecca is at bedside. Patient is opening eyes to verbal stimuli. HR now improved. VSS. Poor prognosis. OBJECTIVE PHYSICAL EXAMINATION: VITAL SIGNS: please see below General: NAD, comfortable HEENT: PERRLA, EOMI, sclerae clear Neck: supple, normal ROM, no JVD Respiratory: lungs CTAB, no wheeze, no rales, no crackles CVS: RRR, normal S1, S2, no murmurs Abdo: soft, no masses, no hepatosplenomegaly, BS+, no rebound tenderness Extremities: no edema, pulses 2+ MSK: no joint deformities, normal ROM Neuro: no focal neuro deficits, moving all 4 extremities, CN2-12 intact. Strength 5/5 in all 4 extremities. No nystagmus. Psych: calm, cooperative, AAO x 3 LABORATORY DATA, IMAGING STUDIES, MICROBIOLOGY: Please see below. CT head wo contrast (06/26/20) Vascular calcification and generalized volume loss. Small vessel changes. No acute intracranial abnormality. Echocardiogram: Ordered on 06/25/20 as stat, pending. DVT prophylaxis ordered?: Full dose AC Lovenox due to a new onset A. fib. ASSESSMENT AND PLAN: 79-year-old male with a history of CAD status post CABG in 2008, hypertension, hyperlipidemia, arthritis and methotrexate presented to ER with confusion and shortness of breath, doesn't positive for Covid known exposure to his . Onset of symptoms 2 days ago. Thought to be in the new- onset A. fib with RVR. Admitted to hospitalist service for management of Covid 19 pneumonia with desaturation as well as new onset atrial fibrillation. Severe sepsis, likely source is bacterial pneumonia. PROBLEMS: Sepsis 2/2 bacterial pneumonia, in setting of covid-19 infection - elevated inflammatory markers, continue to trend. D dimer > 4000. - blood cultures (06/26/20) prelim positive gram positive cocci in clusters - procalcitonin 71.15. - vancomycin (Day 2), cefepime (day 1). Received ceftriaxone in ER. - LA 2.8 - 1L NS bolus ordered, repeat LA in 4 hours - lube technician consult, discussed with Dr. Toussaint. #Covid-19 infection - positive on 06/26/20, known exposure to - CTA showed no PE - c/w Remdesivir (Day #07/15) - full-dose lovenox AC 1 mg/kg q12h - O2 support via NC - incentive spirometry New-onset atrial fibrillation - possible due to covid pneumonia/sepsis - received amiodarone on admission - continues to be in afib - echo ordered stat on 06/25/20 pending - full dose AC with lovenox with plan to transition to eliquis - Discussed with Dr. Greer, agrees with full dose AC with lovenox - metoprolol 25 mg q6h PO with parameters - add digoxin 0.25 mg IV q6h x 4 doses, proceed with 0.25 mg PO daily doses depending on renal function Metabolic encephalopathy 2/2 sepsis vs head injury vs infection - per granddaughter, patient had fallen on 06/25/19 which prompted ambulance to be called - had urinary incontinence and diarrhea - will check CT head wo contrast to r/o bleed CVA. - if no bleed, will resume AC w/lovenox Troponin elevation - peak at 0.12, downtrending to 0.07 - no ischemic EKG changes - likely in setting of sepsis, afib w rvr. Thrombocytopenia - PLT 69. Likely 2/2 sepsis, infection w covid. - check CT head to r/o bleed as fell on 06/25/20 at home - CT head negative - if no bleed, will c/w lovenox - trend PLT, monitor for bleeding #Diarrhea - watery, occuring during exam - no hx of abx, laxative - will check c diff as high risk group Questionable hx of CHF - unspecified - appears euvolemic - echo pending RA on methotrexate - resume home meds Hypothyroidism - resume home levothyroxine HTN - continue lisinopril HDL - resume home statin DVT ppx: - lovenox, full dose pending CT head read. Dispo: - pending clinical improvement - I spoke at length to patient's granddaughter this morning, who was at bedside regarding overnight events and aswered all questions in detail. As patient un able to tolerate bipap, is confused and is unable to tolerate nasal canula, family decided to proceed with [employer]. This was a decision made by his Chrissie Ahmadi and their children and grandchildren. [employer] orders placed. VS, I&O, 24H, Fishbone Vital Signs/I&O Vital Signs Date Time Temp Pulse Resp B/P (MAP) Pulse Ox O2 Delivery O2 Flow Rate FiO2 06/28/20 09:00 83 41 130/65 (86) 97 NIPPV (BIPAP/CPAP) 90 06/28/20 08:00 96.1 06/28/20 00:45 40.0 I&O- Last 24 Hours up to 6 AM 06/28/20 06:00 Intake Total 1930 ml Output Total 960 ml Balance 970 ml Laboratory Data 24H LABS Laboratory Tests 2 06/27/20 12:42: Bedside Glucose (Misc Panel) 143H 06/27/20 18:27: Bedside Glucose (Misc Panel) 151H 06/27/20 21:43: Lactic Acid Level 3.2*H 06/28/20 01:15: Blood Gas Bicarbonate Standard 17.6L, Arterial Blood pH 7.251L, Arterial Blood Partial Pressure CO2 42.2, Arterial Blood Partial Pressure O2 110.4H, Arterial Blood Total CO2 19.4L, Arterial Blood HCO3 18.1L, Arterial Blood Base Excess - 8.7L, Arterial Blood Oxygen Saturation 97.6 06/28/20 01:31: Bedside Glucose (Misc Panel) 151H 06/28/20 03:53: Immature Granulocyte % (Auto) 1.7, Neutrophils (%) (Auto) 83.5H, Lymphocytes (%) (Auto) 10.4L, Monocytes (%) (Auto) 3.7, Eosinophils (%) (Auto) 0.0, Basophils (%) (Auto) 0.7, Neutrophils # (Auto) 2.5, Lymphocytes # (Auto) 0.3L, Monocytes # (Auto) 0.1, Eosinophils # (Auto) 0.0, Basophils # (Auto) 0.0, Nucleated Red Blood Cells % (auto) 0.0, Fibrinogen 546H, D-Dimer, Quantitative > 4000H, Anion Gap 9, Glomerular Filtration Rate 52.7, Lactic Acid Followup at 4 Hours 2.0, Calcium Level 7.6L, Ferritin 8152H, Total Bilirubin 0.7, Aspartate Amino Transf (AST/SGOT) 98H, Alanine Aminotransferase (ALT/SGPT) 40, Alkaline Phosphatase 61, Lactate Dehydrogenase 911H, Total Creatine Kinase 1425H, C-Reactive Protein, Quantitative 10.30H, Total Protein 5.6L, Albumin 2.8L, Albumin/Globulin Ratio 1.0 06/28/20 06:27: Bedside Glucose (Misc Panel) 156H 06/28/20 07:46: Vancomycin Level Trough 11.6 CBC/BMP Laboratory Tests 06/28/20 03:53 Microbiology Microbiology 06/26/20 Blood Culture - Preliminary, Resulted No growth after 24 hours . All specim... 06/26/20 Blood Culture - Preliminary, Resulted No growth after 24 hours . All specim... 06/25/20 Blood Culture - Preliminary, Resulted No Growth after 48 hours. All Specime... 06/25/20 Blood Culture - Final, Complete Staphylococcus Lugdunensis DANIEL FIGUEROA MD Jun 28, 2020 10:22
[2020-06-28] MEDS ORDERED: LORazepam 2 MG/ML VIAL IV PRN ×2 (10:45→12:00)
[2020-06-28] MEDS ORDERED: MORPHINE 2 MG/ML 1ML VIAL (J2270) IV PRN ×2 (10:45→12:00)
[2020-06-28] MEDS ORDERED: PREVNAR 13 VACCINE SYRINGE IM SCH (11:30)
[2020-06-28] MEDS ORDERED: FLUBLOK(EGG FREE)(QUAD)INFLUENZA VACC 0.5ML SYRINGE 18YRS & OLDER IM SCH (11:30)
[2020-06-28] MEDS ORDERED: FLEET ENEMA PR PRN (12:00)
[2020-06-28] MEDS ORDERED: ONDANSETRON 4MG/2ML VIAL IV PRN (12:00)
[2020-06-28] MEDS ORDERED: SCOPOLAMINE 1MG TRANSDERMAL PATCH TOP PRN (12:00)
[2020-06-28] MEDS ORDERED: BISACODYL 10 MG SUPP PR PRN (12:00)
[2020-06-28] MEDS ORDERED: HYOSCYAMINE SULFATE 0.125 MG SUBL TABLET PO PRN (12:00)
[2020-06-28] MEDS ORDERED: ATROPINE SULFATE 1% OP SOLN 2 ML BTL SL PRN (12:00)
--- NOTE | 2020-06-29 08:52 | ECHO ---
DATE OF PROCEDURE: 06/26/2020 Age: 79 Gender: Male REFERRING PHYSICIAN: Juan Shelton DO PATIENT LOCATION: Room 3206 REASON FOR STUDY: Tachycardia, abnormal EKG. 2D MEASUREMENTS: IVS 1.0 cm LV 4.9 cm LVPW 0.9 cm LA 3.4 cm Aorta 3.2 cm IVC 2.1 DOPPLER MEASUREMENT Peak velocity across the tricuspid valve 2.0 m/s Mitral E 1.0 Mitral A 1.4 with a ratio of 0.8 2D COMMENTS: 1. Technically mildly limited study due to poor acoustic window. 2. The left ventricular size is normal, as well as left ventricular wall thickness. Left ventricular systolic function appeared to be probably mildly depressed with an estimated LVEF of 45% to 50%. 3. Normal left atrium. Normal right atrium and right ventricle. 4. The atrial septum appeared to be normal without evidence of defect or shunt. 5. Normal aortic root. 6. Trace pericardial effusion noted. No evidence of cardiac tamponade. 7. Minimally calcified aortic valve with normal leaflet excursion. Mildly calcified mitral annulus with normal anterior mitral valve leaflet motion. Normal tricuspid valve and pulmonic valve. The proximal pulmonary artery branches were not well visualized. 8. The inferior vena cava was mildly enlarged, central venous pressure mildly elevated. DOPPLER: It detects trace mitral regurgitation, trace tricuspid regurgitation, and trace pulmonic regurgitation. The calculated pulmonary artery systolic pressure was normal. Abnormal relaxation pattern was noted across the mitral valve leaflets, as well as the mitral valve annulus consistent with features of grade 1 left ventricular diastolic dysfunction. IMPRESSION: 1. Probably mildly depressed global left ventricular systolic function. The basal anterior septum to the mid portion appeared to be hypokinetic. 2. There are features of grade 1 left ventricular diastolic dysfunction manifested by abnormal relaxation. 3. Aortic valve sclerosis without stenosis or aortic regurgitation. 4. Mitral annular calcification with trace mitral regurgitation. 5. Trace tricuspid regurgitation with normal calculated pulmonary artery systolic pressure. 6. Trace pericardial effusion, no evidence of cardiac tamponade. 7. Patient was noted during the test to be tachycardic with a heart rate that varied between 140-150 beats per minute. 8. No prior echocardiogram for comparison. [facility]
[2020-06-29] MEDS ORDERED: FOLIC ACID 1 MG in NS 50 ML IV SCH (09:00)
[2020-06-29] MEDS ORDERED: LEVOTHYROXINE 100MCG (0.1MG) VIAL IV SCH (10:00)
[2020-06-29 13:07] LABS: BODY FLUID CULTURE Not indicated. (.); LEGIONELLA ANTIGEN URINE Negative (Negative); ORGANISM ID Not indicated. (.); SPECIMEN SOURCE Urine (.); URINE STREP PNEUMONIAE ANTIGEN Negative (Negative)
[2020-06-29 15:14] LABS: CHLAMYDIA PNEUMONIAE IgM <1:10 (Neg:<1:10); MYCOPLASMA PNEUMONIAE IgG 106 U/mL (0-99); MYCOPLASMA PNEUMONIAE IgM <770 U/mL (0-769)
--- NOTE | 2020-07-09 20:58 | DS.PDOC ---
Discharge Summary General Date of Admission Jun 26, 2020 at 01:37 Date of Discharge 06/28/20 Discharge Summary PROCEDURES PERFORMED DURING STAY: [None]. ADMITTING DIAGNOSES: Covid-19 pneumonia Metabolic encephalopathy New onset atrial fibrillation Rheumatoid arthritis Hx of hypothyroid HTN HLD TAMMY DISCHARGE DIAGNOSES: Sepsis 2/2 bacterial pneumonia Covid-19 infection Thrombocytopenia Troponin elevation Diarrhea COMPLICATIONS/CHIEF COMPLAINT: Rvr,Afib,Covid+. HISTORY OF PRESENT ILLNESS: Wiley Ahmadi is a 79 YO M with history of CAD s/p 4-vessel CABG in 2008, HTN, HLD, RA on MTX who presents to the ED with 2 days symptoms of chills and lightheadedness and known Covid 19 exposure from his . The patient reports he has had chills, subjective fever, dizziness and overall fatigue that have worsened for the past 2 days. He denies any cough, worsened shortness of breath, nausea, vomiting or diarrhea. Upon initial pr esentation to the ED he was found to be confused, saturating 92% on room air but confusion has improved with treatment of his fever. Additionally, the patient has new onset atrial fibrillation with rate in the 160s. Initial workup showed patchy infiltrates consistent with viral pneumonia on chest x-ray and CT angiography of the chest was negative for pulmonary embolism. HOSPITAL COURSE: Sepsis 2/2 bacterial pneumonia, in setting of covid-19 infection - elevated inflammatory markers, continue to trend. D dimer > 4000. - blood cultures (06/26/20) prelim positive gram positive cocci in clusters - procalcitonin 71.15. - vancomycin (Day 2), cefepime (day 1). Received ceftriaxone in ER. - LA 2.8 - 1L NS bolus ordered, repeat LA in 4 hours - tile shader consult, discussed with Dr. Toussaint. #Covid-19 infection - positive on 06/26/20, known exposure to - CTA showed no PE - c/w Remdesivir (Day #07/15) - full-dose lovenox AC 1 mg/kg q12h - O2 support via NC - incentive spirometry New-onset atrial fibrillation - possible due to covid pneumonia/sepsis - received amiodarone on admission - continues to be in afib - echo ordered stat on 06/25/20 pending - full dose AC with lovenox with plan to transition to eliquis - Discussed with Dr. Greer, agrees with full dose AC with lovenox - metoprolol 25 mg q6h PO with parameters - add digoxin 0.25 mg IV q6h x 4 doses, proceed with 0.25 mg PO daily doses de pending on renal function Metabolic encephalopathy 2/2 sepsis vs head injury vs infection - per granddaughter, patient had fallen on 06/25/19 which prompted ambulance to be called - had urinary incontinence and diarrhea - will check CT head wo contrast to r/o bleed CVA. - if no bleed, will resume AC w/lovenox Troponin elevation - peak at 0.12, downtrending to 0.07 - no ischemic EKG changes - likely in setting of sepsis, afib w rvr. Thrombocytopenia - PLT 69. Likely 2/2 sepsis, infection w covid. - check CT head to r/o bleed as fell on 06/25/20 at home - CT head negative - if no bleed, will c/w lovenox - trend PLT, monitor for bleeding #Diarrhea - watery, occuring during exam - no hx of abx, laxative - will check c diff as high risk group Questionable hx of CHF - unspecified - appears euvolemic - echo pending RA on methotrexate - resume home meds Hypothyroidism - resume home levothyroxine HTN - continue lisinopril HDL - resume home statin DVT ppx: - lovenox, full dose pending CT head read. Dispo: - pending clinical improvement - I spoke at length to patient's granddaughter this morning, who was at bedside regarding overnight events and aswered all questions in detail. As patient unable to tolerate bipap, is confused and is unable to tolerate nasal canula, family decided to proceed with BLAST [employer]URNACE KEEPER. This was a decision made by his Chrissie Ahmadi and their children and grandchildren. BLAST [employer]URNACE KEEPER orders placed. DISCHARGE MEDICATIONS: Please see below. ALLERGIES: Please see below. PHYSICAL EXAMINATION ON DISCHARGE: . , No carotid pulses were palpated, no heart sounds heard. Auscultation of the entire precordium. No breath sounds heard on auscultation of bilateral lung hall. No corneal reflex. LABORATORY DATA: Please see below. IMAGING: CXR (06/25/20): Extensive bilateral ill-defined alveolar infiltrates consistent with viral pneumonia. CTA chest (06/25/20): 1. Bilateral semi-solid and solid pulmonary parenchymal infiltrates located predominantly peripherally extending to the pleural surfaces. Findings consistent with multifocal viral pneumonitis (organizing type) and known Covid diagnosis. 2. Calcified pleural plaques consistent with asbestos exposure. 3. Mediastinal and bilateral hilar lymphadenopathy. 4. Status post CABG. 5. There are no pulmonary emboli. 6. There is no aortic dissection or aneurysm. Head CT (06/26/20): Vascular calcification and generalized volume loss. Small vessel changes. No acute intracranial abnormality.. CXR (06/27/20): Worsened bilateral airspace opacities consistent with pneumonia versus asymmetric pulmonary edema. DISPOSITION: 20 . DISCHARGE CONDITION: [Stable]. TIME SPENT ON DISCHARGE: 25 minutes. Discharge Medications Scheduled Aspirin (Aspirin EC) 81 Mg Tablet.dr, 81 MG PO QHS, (Reported) Folic Acid (Folic Acid) 1 Mg Tablet, 1 MG PO DAILY, (Reported) Levothyroxine Sodium (Synthroid) 100 Mcg Tablet, 100 MCG PO DAILY, (Reported) Lisinopril (Lisinopril) 5 Mg Tab, 5 MG PO DAILY, (Reported) Methotrexate Sodium (Methotrexate) 2.5 Mg Tab, 17.5 MG PO QWEEK, (Reported) Pravastatin Sodium (Pravastatin Sodium) 40 Mg Tab, 40 MG PO QHS, (Reported) Scheduled PRN Acetaminophen (Tylenol Extra Strength) 500 Mg Tablet, 1,000 MG PO Q6H PRN for PAIN / FEVER, (Reported) Guaifenesin/Dextromethorphan (Tussin Dm Syrup) 118 Ml Syrup, 20 ML PO Q4H PRN for CONGESTION/COUGH, (Reported) Allergies Coded Allergies: No Known Allergies (Verified , 07/21/16) DANIEL FIGUEROA MD Jul 09, 2020 20:58
--- NOTE | 2020-07-10 11:07 | CCN ---
CRITICAL CARE NOTE DATE: 06/28/2020 SUBJECTIVE: Patient seen and examined this morning during bedside rounds. Overnight the patient was de-sating while on Vapotherm at max settings with 100% FiO2 and 40 liters a minute. He was therefore placed on BIPAP with settings of 15/10 initially at 100% FiO2. He did have episodes of agitation overnight and had also gone into rapid ventricular response again. He was given Metoprolol IV push as well as a Lasix IV push overnight with minimal urine output. He did also receive Haldol and Ativan for his agitation. He does have difficulty tolerating the BIPAP mask at times and does attempt to remove it although he is currently able to be re-directed. This morning he is somewhat drowsy but is able to open his eyes and answer questions with short words and phrases appropriately for the most part, but he does appear confused at times. He denies any chest pain currently. He does continue to be tachypneic and is using some mild accessory muscles for respiration. PHYSICAL EXAMINATION: VITAL SIGNS: Temperature 97.2, pulse 90, respirations 40, blood pressure 111/57, O2 sat 97% on 90% FiO2. INTAKE AND OUTPUT: In 2.7 liters, out 955 with an additional 325 output later. GENERAL APPEARANCE: The patient is an elderly male. He is lying in bed and appears tachypneic and is using some accessory muscles for respiration. He is able to speak in short sentences although he does appear confused at times. He is awake and arousable to voice. HEENT: Normocephalic and atraumatic. Somewhat dry mucous membranes while on BIPAP. NECK: Supple. Trachea is midline. Unable to clearly evaluate jugular venous distention. CARDIAC: Tachycardic, irregularly irregular, normal S1, S2, unable to clearly appreciate any murmurs. PULMONARY: Coarse breath sounds bilaterally with occasional crackles noted. There is no significant wheezing, no rhonchi noted this morning. ABDOMEN: Obese, soft, mildly tender and nondistended. There is a reducible hernia. EXTREMITIES: There is no significant lower extremity edema bilaterally. LABORATORY STUDIES: WBC 3.0, hemoglobin 11.4, platelets are 102. Chemistries - sodium is 137, potassium 4.2, chloride is 106, bicarbonate is 22, BUN 30, creatinine is 1.39, glucose is 182, lactic acid was 3.2, repeat this morning 2.0, ferratin increased to 8152, AST, ALT 98 and 40. LDH is 411, CPK 1425, CRP 10.3, albumin is 2.8. D-dimer was greater than 4,000. Fibrinogen is 5.6. ABG: Yesterday evening pH was 7.251, pco2 of 42.2, pO2 of 110.4. ASSESSMENT AND PLAN: Mr. Ahmadi is a 79-year-old male with a history of coronary artery disease, hypertension, hyperlipidemia, congestive heart failure and rheumatoid arthritis who presented with fevers, chills and confusion. The patient is with acute hypoxic respiratory failure in the setting of COVID-19 pneumonia as well as a possible superimposed bacteria pneumonia with sepsis. He was also noted to have new onset atrial fibrillation with rapid ventricular response during this admission, likely in the setting of his sepsis and respiratory failure. Acute hypoxic respiratory failure in the setting of COVID-19 pneumonia with sepsis and likely superimposed bacterial pneumonia given severely elevated procalcitonin. Patient will be continued on broad spectrum antibiotics with Vancomycin and Cefepime. His initial blood culture grew staph lugdunensis but repeat blood cultures are negative. His fever curve has been improving and we will continue to monitor his procalcitonin to punch press operator helper in deescalation of antibiotics. We will continue him with Remdesivir and Baricitinib for his severe hypoxic respiratory failure on non-invasive ventilation. We will continue the patient on BIPAP. His settings will be adjusted to be 14/10 as he does have elevated tidal volumes. We will also wean down his FiO2 as tolerated to maintain O2 sat above 90%. He was able to wean down on BIPAP to 75% this morning. If he is able to tolerate, we will give breaks from BIPAP to high flow nasal cannula oxygen. Can consider medications p.r.n. as needed for anxiety, however would be cautious of over sedation. We will continue to encourage awake pronation as tolerated. The patient has difficulty given his mental status. New onset atrial fibrillation with rapid ventricular response and previous history of coronary artery disease and CABG. The patient is status post Digoxin load. He is also on Metoprolol for rate control and is status post Amiodarone IV loading. Have not continued with p.o. Amiodarone at this time but can likely consider p.o. Amiodarone if he continues to have episodes of rapid ventricular response and is hypotensive. He was given a dose of Lasix yesterday although he had minimal urine output. His creatinine has increased today and as he is n.p.o., would hold off on further diuresis and would likely give gentle hydration. We will discontinue his Lisinopril given his acute kidney injury and sepsis. We will discontinue his statin as he did have mild increase in his LFTs and is on Remdesivir. Continue with Aspirin. Continue with the rest of rate control medications as per his Primary Team. The patient was started on Lovenox for anticoagulation for his new onset atrial fibrillation which we will continue. Thrombocytopenia likely in the setting of sepsis as well as possibly with medications. He does not appear to be in disseminated intravascular coagulation and his platelet counts are improving. We will continue with anticoagulation and monitoring of his platelets and disseminated intravascular coagulation panel. Hypothyroidism - The patient is on Synthroid. We will adjust and change to IV Synthroid as he is on BIPAP. CODE STATUS: The patient was made DNR/DNI after discussion with his and his granddaughter. There has also been some discussion of potential [employer]ROAD [employer] MECH[employer]IC which the family is continuing to consider and discuss. Total critical care time spent not including procedures approximately 45 minutes.
== END 2020-06-28 14:46 | disposition expired | DRG 871 ==
LOC: M ED 18:36 → ENRESERV 23:07 → M ICU 06-26 00:45 → M ED 06-26 00:46 → M ICU 06-26 01:01
PROVIDERS: ADMIT Internal Medicine; ATTEND Internal Medicine
DX: A41.9 Sepsis, unspecified organism (principal); J12.89 Other viral pneumonia; J96.01 Acute respiratory failure with hypoxia; J18.9 Pneumonia, unspecified organism; U07.1 COVID-19; I50.32 Chronic diastolic (congestive) heart failure; R41.82 Altered mental status, unspecified; I48.91 Unspecified atrial fibrillation; I12.9 Hypertensive chronic kidney disease with stage 1 through stage 4 chronic kidney disease, or unspecified chronic kidney disease; M06.9 Rheumatoid arthritis, unspecified; I25.10 Atherosclerotic heart disease of native coronary artery without angina pectoris; E03.9 Hypothyroidism, unspecified; Z79.899 Other long term (current) drug therapy; Z79.82 Long term (current) use of aspirin; D69.6 Thrombocytopenia, unspecified; R19.7 Diarrhea, unspecified

== ENCOUNTER → 2020-06-25 | Outpatient (CLI) | payer SELFPAY ==
[~2020-06-25] MED LIST changes: +ACET-897 PO; +ASPI-161 PO; +CYAN500T14 PO; -CYAN500T8 PO; +FOLI1TAB11 PO; +GNPLIQ18 PO; -LISI-542 PO; +LISI-898 PO; +SYNT100T PO
== END ==
LOC: M LABSMTC 13:34
PROVIDERS: ATTEND Pediatrics
DX: Z20.822 Contact with and (suspected) exposure to COVID-19 (principal)